=== PATIENT | male | born 1960 | race Caucasian/White ===

== ENCOUNTER → 2023-10-20 | Outpatient (CLI) | payer MEDICARE, OTHER ==
[2023-10-20 11:55] LABS: Basophils # (A) 0.1 k/uL (0-0.2); Basophils % (A) 1 %; Eosinophils # (A) 0.3 k/uL (0-0.7); Eosinophils % (A) 3 %; HCT 43.5 % (39.0-53.0); HGB 14.3 gm/dL (13.0-17.5); Lymphocytes # (A) 2.5 k/uL (1.0-4.8); Lymphocytes % (A) 30 %; MCH 30.9 pg (25.0-35.0); MCHC 32.8 g/dL (31.0-37.0); MCV 94.3 fL (80.0-100.0); Mean Platelet Volume 8.7; Monocytes # (A) 0.5 k/uL (0-1.0); Monocytes % (A) 6 %; Neutrophils # (A) 4.9 k/uL (1.3-7.7); Neutrophils % (A) 58 %; Platelet Count 220 k/uL (150-450); RBC 4.61 m/uL (4.30-5.90); RDW 12.5 % (11.5-15.5); WBC 8.3 k/uL (3.8-10.6)
[2023-10-20 12:09] LABS: ALT 29 U/L (4-49); AST 28 U/L (17-59); African American GFR (CKD) >90 (>60 ml/min/1.73 sqM); Albumin 4.4 g/dL (3.5-5.0); Albumin/Globulin Ratio 1.5; Alkaline Phosphatase 82 U/L (38-126); Anion Gap 9 mmol/L; Blood Urea Nitrogen 25 mg/dL (9-20); Calcium 9.8 mg/dL (8.4-10.2); Carbon Dioxide 23 mmol/L (22-30); Chloride 108 mmol/L (98-107); Glucose 90 mg/dL (74-99); Non-African American GFR(CKD) 86 (>60 ml/min/1.73 sqM); Potassium 4.8 mmol/L (3.5-5.1); Sodium 140 mmol/L (137-145); Total Bilirubin 0.7 mg/dL (0.2-1.3); Total Protein 7.4 g/dL (6.3-8.2)
--- NOTE | 2023-10-27 09:08 | CT ---
EXAMINATION TYPE: CT abdomen pelvis w con CT DLP: 2068.5 mGycm, Automated exposure control for dose reduction was used. DATE OF EXAM: 10/20/2023 1:09 PM COMPARISON: None CLINICAL INDICATION:Male, 63 years old with history of C18.9 COLON CA; colon ca TECHNIQUE: Axial CT of the abdomen and pelvis. Sagittal and coronal reformats were created on a [employer] workstation. Contrast used:100 mL of Isovue 300 with IV Contrast, (none if empty) Oral contrast used: with Oral Contrast (none if empty) FINDINGS: LOWER CHEST: No sizable nodule or mass. No effusion. Small sliding hiatal hernia. Normal heart size. ABDOMEN LIVER: There is probably mild hepatic steatosis. No evidence for liver mass. GALLBLADDER AND BILE DUCTS: Unremarkable gallbladder. No biliary ductal dilatation. PANCREAS: Unremarkable. SPLEEN: Unremarkable. ADRENAL GLANDS: Mildly thickened, may be seen with hyperplasia.. KIDNEYS AND URETERS: Kidneys enhance symmetrically. No evidence of hydronephrosis or visible renal ca lculus. The ureters are unremarkable. PELVIS BLADDER: Mildly distended, otherwise unremarkable. REPRODUCTIVE: Prostate appears enlarged, transverse measures 5.8 cm. Coarse central calcification. ABDOMEN & PELVIS STOMACH AND BOWEL: Contrast traverses the stomach and small bowel loops without evidence of obstructi on. The presumed appendix appears within normal limits. There is mild stool and gas throughout the co connor intermixed with contrast. No focal acute abnormality is shown. Some colonic segments are nondiste nded and not well evaluated. Nevertheless there is no obvious colonic mass. PERITONEUM/RETROPERITONEUM: No evidence of pneumoperitoneum or free fluid. VASCULATURE: Mild atherosclerotic calcifications are present throughout the abdominal aorta and its b ranches. No evidence of aortic aneurysm. Portal veins are enhancing. Splenic vein is patent. LYMPH NODES: No gross evidence for lymphadenopathy. SOFT TISSUE/ABDOMINAL WALL: Tiny fat-containing umbilical hernia. MUSCULOSKELETAL: No acute osseous abnormalities. Mild/moderate disc degeneration changes are present throughout the thoracolumbar spine. Slight S-shaped thoracolumbar scoliosis. IMPRESSION: 1. No acute abnormality demonstrated. 2. Multiple colonic diverticula, without evidence to suggest diverticulitis. 3. Enlarged prostate gland, as above. Clinical and PSA correlation recommended.
== END | disposition home or self-care (01) ==
LOC: RADCTMAIN 11:13
PROVIDERS: ATTEND Surgery Plastic and Reconstructive Surgery
DX: C18.9 Malignant neoplasm of colon, unspecified (principal); K57.30 Diverticulosis of large intestine without perforation or abscess without bleeding; N40.0 Benign prostatic hyperplasia without lower urinary tract symptoms
CPT/HCPCS: 86900; 86901; 80053; 82378; 85025; 86850; 74177; 36415; Q9967

== ENCOUNTER 2023-11-05 10:10 | Day surgery (SDC) | payer MEDICARE ==
[2023-10-30 09:31] VITALS: BMI 89.7
--- NOTE | 2023-11-05 07:51 | P.GSHP ---
History of Present Illness H&P Date: 11/05/23 CHIEF COMPLAINT: History of sigmoid volvulus HISTORY OF PRESENT ILLNESS: The patient is a 63-year-old male presents with biopsy-proven colon cancer. Patient did not have tattooing at the time of his initial colonoscopy. He underwent cardiac risk assessment. He presents for surgical preoperative endoscopic triptorelin and colon resection PAST MEDICAL HISTORY: Please see list. PAST SURGICAL HISTORY: Please see list. MEDICATIONS: Please see list. ALLERGIES: Please see list. SOCIAL HISTORY: No illicit drug use FAMILY HISTORY: No reports of Crohn disease or ulcerative colitis. REVIEW OF ORGAN SYSTEMS: CONSTITUTIONAL: Denies any fever or chills. HEENT: Denies any trouble with vision or nosebleeds. No difficulty swallowing. LYMPHATIC: The patient denies any lumps and bumps around the neck. ENDOCRINE: Denies any thyroid disorders. RESPIRATORY: Denies pneumonia. Denies any troubles with breathing or dyspnea on exertion. CARDIOVASCULAR: Denies any chest pain, palpitations, or recent heart attacks GASTROINTESTINAL: Has gastroesophageal reflux disease GENITOURINARY: No blood in urine. MUSCULOSKELETAL: Has back pain, stiffness, joint arthritis. NEUROLOGIC: Denies any numbness or tingling along the distal extremities. No seizure disorders or headaches. PSYCHIATRIC: Denies depression or suidical ideation. HEMATOLOGIC: Denies any abnormal bleeding or bruising. PHYSICAL EXAM: VITAL SIGNS: Stable GENERAL: Well-developed pleasant in no acute distress. HEENT: No scleral icterus. Extraocular movements grossly intact. Moist buccal mucosa. NECK: Supple without lymphadenopathy. CHEST: Unlabored respirations. Equal bilateral excursions. CARDIOVASCULAR: Regular rate and rhythm. Distal 2+ pulses. ABDOMEN: Soft, nontender, nondistended. MUSCULOSKELETAL: No clubbing, cyanosis, or edema. NERUO: Cranial nerves II through XII grossly intact PSYCH: Alert and oriented to person place and time. ASSESSMENT: 1. Colon cancer PLAN: 1. Benefits and risks of surgical intervention colonic resection. Robotic- assisted approach was also described. Will need endoscopic marking prior to colonic resection via robotic-assisted approach 2. Enhanced colon recovery program. 3. DVT prophylaxis. 4. Antibiotic prophylaxis. Past Medical History Past Medical History: Cancer, GERD/Reflux, Hypertension, Pneumonia Additional Past Medical History / Comment(s): dx with colon ca may 2023 History of Any Multi-Drug Resistant Organisms: None Reported Past Surgical History: Adenoidectomy, Orthopedic Surgery, Tonsillectomy Additional Past Surgical History / Comment(s): hemorroidectomy, plate in lt leg Past Anesthesia/Blood Transfusion Reactions: No Reported Reaction Smoking Status: Former smoker - Past Family History Brother(s) Family Medical History: Deep Vein Thrombosis (DVT) Additional Family Medical History / Comment(s): dvt leg Medications and Allergies Home Medications Medication Instructions Recorded Confirmed Type Ascorbic Acid [Vitamin C] 1,000 mg PO QAM 10/30/23 10/30/23 History Cholecalciferol [Vitamin D3 (125 125 mcg PO MOTHSA 10/30/23 10/30/23 History Mcg = 5000 Iu)] Christopher's Joint Formula 2 tab PO QAM 10/30/23 10/30/23 History Zinc Gluconate [Zinc] 50 mg PO QAM 10/30/23 10/30/23 History lisinopriL [Zestril] 40 mg PO QAM 10/30/23 10/30/23 History Allergies Allergy/AdvReac Type Severity Reaction Status Date / Time Penicillins Allergy QUIT Verified 10/29/23 16:10 BREATHING A CHILD
[~2023-11-05 10:10] MED LIST: Antibiotics per Pharmacy 1 EACH MISC MISCELLANE PRN; LACTATED RINGERS 1,000 ML IV SCH
[2023-11-05 11:03] VITALS: TEMP 97.1
[2023-11-05 11:20] LABS: Glucose,Whole Blood 86 mg/dL (70-110)
[2023-11-05] MEDS ORDERED: PROPOFOL 10 MG/ML 20 ML VIAL IV ONE (11:20)
[2023-11-05 11:45] LABS: ALT 24 U/L (4-49); AST 24 U/L (17-59); African American GFR (CKD) >90 (>60 ml/min/1.73 sqM); Albumin 3.9 g/dL (3.5-5.0); Alkaline Phosphatase 79 U/L (38-126); Anion Gap 14 mmol/L; Blood Urea Nitrogen 17 mg/dL (9-20); Calcium 8.9 mg/dL (8.4-10.2); Carbon Dioxide 19 mmol/L (22-30); Chloride 105 mmol/L (98-107); Glucose 88 mg/dL (74-99); Non-African American GFR(CKD) >90 (>60 ml/min/1.73 sqM); Potassium 4.2 mmol/L (3.5-5.1); Sodium 138 mmol/L (137-145); Total Bilirubin 0.7 mg/dL (0.2-1.3); Total Protein 6.6 g/dL (6.3-8.2)
--- NOTE | 2023-11-05 11:53 | P.PN ---
Progress Note - Text Progress Note Date: 11/05/23 Discussed with [employer] insurance regarding patient's colon cancer diagnosis and findings for immediate authorization approval for inpatient admission
--- NOTE | 2023-11-05 11:58 | P.PCN ---
Date of Procedure: 11/05/23 Description of Procedure: PREOPERATIVE DIAGNOSIS: Colon cancer POSTOPERATIVE DIAGNOSIS: Tubular adenoma transverse colon Tubular adenoma descending colon Sigmoid diverticulosis Rectosigmoid junction colon cancer Pandiverticulosis, severe Internal hemorrhoids, grade 2 OPERATION: Colonoscopy to the ileocecal valve and appendiceal orifice, cecum Colonoscopy with injection of Maylin ink, 4 mL Colonoscopy with hot snare polypectomy SURGEON: Tawny Nina MD. ANESTHESIA: MAC. INDICATIONS: The patient is an 63-year-old male who presents with biopsy-proven colon cancer. Presents for surgical mapping. Benefits and risks were described and informed consent was obtained. DESCRIPTION OF PROCEDURE: The patient had undergone Sutab prep. The patient had been brought into the operating room and laid in the left lateral decubitus position. After adequate intravenous sedation, the rectum was examined with 2% lidocaine jelly. The prostate was unremarkable. External hemorrhoids were encountered. The rectal tone was within normal limits. No lesions were palpated in the rectal vault. An Olympus colonoscope was advanced until the cecum, ileocecal valve and appendiceal orifice were clearly viewed. The prep was good. Sigmoid diverticulosis was encountered. Colonic polyps were found and removed. No evidence of focal colitis was found. Retroflexion of the scope demonstrated grade 2 internal hemorrhoids without active bleeding or inflammation. The colon was desufflated. The patient had tolerated the procedure well. Withdrawal time was over 6 minutes. FINDINGS: Aronchick preparation quality scale 2 (1-5) Internal hemorrhoids, grade 2 External hemorrhoids, grade 2. Arteriovenous malformations and transverse colon Rectosigmoid junction cancer 10-15 cm from the anal verge incorporating 30% of lumen Sigmoid diverticulosis, severe with pandiverticulosis Removal of 2 polyps: - Snare polypectomy 30 cm from the anal verge, 5 mm tubulovillous adenoma, sigmoid colon - Snare polypectomy transverse colon, 12 mm flat villous adenoma No focal colitis. RECOMMENDATIONS: 1. Immediate inpatient admission advised for colectomy
[2023-11-05 12:14] VITALS: RESP 16
[2023-11-05 12:26] LABS: Basophils % (A) 0 %; Eosinophils # (A) 0.3 k/uL (0-0.7); Eosinophils % (A) 4 %; Lymphocytes # (A) 1.8 k/uL (1.0-4.8); Lymphocytes % (A) 21 %; MCH 31.2 pg (25.0-35.0); MCHC 33.3 g/dL (31.0-37.0); MCV 93.8 fL (80.0-100.0); Monocytes # (A) 0.4 k/uL (0-1.0); Monocytes % (A) 5 %; Neutrophils # (A) 5.7 k/uL (1.3-7.7); Neutrophils % (A) 68 %; Platelet Count 203 k/uL (150-450); RBC 4.48 m/uL (4.30-5.90); RDW 12.6 % (11.5-15.5); WBC 8.4 k/uL (3.8-10.6)
[2023-11-05] MEDS ORDERED: ONDANSETRON 4 MG/2 ML VIAL IVP ONE (13:45)
[2023-11-05] MEDS: SODIUM CHLORIDE 0.9% 1,000 ML IV SCH ×2 (14:13→15:11)
[2023-11-05 16:07] VITALS: BP 114/74; PULSE 81
[2023-11-06] MEDS ORDERED: metroNIDAZOLE-NS PMX 500 MG in SALINE 1 100ML.BAG IVPB PRN (05:00)
[2023-11-06] MEDS ORDERED: ceFAZolin 3 GM in SODIUM CHLORIDE 0.9% 100 ML IVPB PRN (05:00)
== END 2023-11-05 15:52 | disposition home or self-care (01) ==
LOC: ORWHC2ENDO 10:10
PROVIDERS: ATTEND Surgery Plastic and Reconstructive Surgery
DX: D12.3 Benign neoplasm of transverse colon (principal); D12.4 Benign neoplasm of descending colon; I10 Essential (primary) hypertension; K21.9 Gastro-esophageal reflux disease without esophagitis; K57.30 Diverticulosis of large intestine without perforation or abscess without bleeding; K64.1 Second degree hemorrhoids; Z87.891 Personal history of nicotine dependence; Z88.0 Allergy status to penicillin; Z85.038 Personal history of other malignant neoplasm of large intestine; Z79.899 Other long term (current) drug therapy
CPT/HCPCS: 86900; 86901; 88305; 80053; 85025; 86850; 45385; 45381; J2405; J2704

== ENCOUNTER 2023-11-06 09:45 | Inpatient (IN) | payer MEDICARE ==
--- NOTE | 2023-11-06 07:55 | P.GSHP ---
History of Present Illness H&P Date: 11/06/23 CHIEF COMPLAINT: Colon cancer HISTORY OF PRESENT ILLNESS: The patient is a 63-year-old male presents with biopsy-proven colon cancer. He had colonoscopy with tattooing of a low-lying rectosigmoid junction colon cancer. He underwent metastatic workup. Additional polyps were resected yesterday. He presents today for colonic resection. PAST MEDICAL HISTORY: Please see list. PAST SURGICAL HISTORY: Please see list. MEDICATIONS: Please see list. ALLERGIES: Please see list. SOCIAL HISTORY: No illicit drug use FAMILY HISTORY: No reports of Crohn disease or ulcerative colitis. REVIEW OF ORGAN SYSTEMS: CONSTITUTIONAL: Denies any fever or chills. HEENT: Denies any trouble with vision or nosebleeds. No difficulty swallowing. LYMPHATIC: The patient denies any lumps and bumps around the neck. ENDOCRINE: Denies any thyroid disorders. RESPIRATORY: Denies pneumonia. Denies any troubles with breathing or dyspnea on exertion. CARDIOVASCULAR: Denies any chest pain, palpitations, or recent heart attacks. Had cardiac risk assessment. GASTROINTESTINAL: Has gastroesophageal reflux disease. Has rectal bleeding. GENITOURINARY: No blood in urine. MUSCULOSKELETAL: Has back pain, stiffness, joint arthritis. NEUROLOGIC: Denies any numbness or tingling along the distal extremities. No seizure disorders or headaches. PSYCHIATRIC: Denies depression or suidical ideation. HEMATOLOGIC: Denies any abnormal bleeding or bruising. PHYSICAL EXAM: VITAL SIGNS: Stable GENERAL: Well-developed pleasant in no acute distress. HEENT: No scleral icterus. Extraocular movements grossly intact. Moist buccal mucosa. NECK: Supple without lymphadenopathy. CHEST: Unlabored respirations. Equal bilateral excursions. CARDIOVASCULAR: Regular rate and rhythm. Distal 2+ pulses. ABDOMEN: Soft, nontender, nondistended. MUSCULOSKELETAL: No clubbing, cyanosis, or edema. NERUO: Cranial nerves II through XII grossly intact PSYCH: Alert and oriented to person place and time. REPORTS: Recent colonoscopy demonstrating adenomas of the transverse colon and descending colon. Tumor between 10-15 cm from the anal verge identified. Severe diverticulosis identified. STUDIES: CT and an pelvis in a reviewed demonstrated no metastatic disease. Highly redundant sigmoid colon with moderate to severe sigmoid diverticulosis identified. This is my independent interpretation. Presence of fatty liver disease also identified. ASSESSMENT: 1. Colon cancer PLAN: 1. Extended discussion with location of tumor were described including risk of protective ostomy, permanent ostomy, open exploratory laparotomy, risk of leaks, need for further surgery. Patient was given alternative for referral to a tertiary care center as well. Patient opted to proceed with all benefits and risks described. 2. Enhanced colon recovery program. 3. DVT prophylaxis. 4. Antibiotic prophylaxis. 5. Inpatient hospitalization anticipated more than 2 nights. 6. Patient's elevated risk due to pre-existing conditions, morbid obesity, heart disease, location of tumor Medications and Allergies Home Medications Medication Instructions Recorded Confirmed Type Ascorbic Acid [Vitamin C] 1,000 mg PO QAM 10/30/23 11/05/23 History Cholecalciferol [Vitamin D3 (125 125 mcg PO MOTHSA 10/30/23 11/05/23 History Mcg = 5000 Iu)] Christopher's Joint Formula 2 tab PO QAM 10/30/23 11/05/23 History Zinc Gluconate [Zinc] 50 mg PO QAM 10/30/23 11/05/23 History lisinopriL [Zestril] 40 mg PO QAM 10/30/23 11/05/23 History Allergies Allergy/AdvReac Type Severity Reaction Status Date / Time Penicillins Allergy QUIT Verified 11/05/23 10:46 BREATHING A CHILD
[~2023-11-06 09:45] MED LIST changes: +ACETAMINOPHEN TAB 500 MG TAB PO PRN; +ALVIMOPAN 12 MG CAPSULE PO PRN; -Antibiotics per Pharmacy 1 EACH MISC MISCELLANE PRN; +HEPARIN SODIUM,PORCINE 5,000 UNIT/ML 1 ML VIAL SQ PRN; -LACTATED RINGERS 1,000 ML IV SCH; +ONDANSETRON 4 MG/2 ML VIAL IVP PRN; +ONDANSETRON 4 MG/2 ML VIAL ONE; +SODIUM CHLORIDE 0.9% 2,000 ML IV ONE; +TAMSULOSIN 0.4 MG CAP.ER.24H PO STA; +metroNIDAZOLE-NS PMX 500 MG in SALINE 1 100ML.BAG IVPB PRN
[2023-11-06] MEDS ORDERED: DEXAMETHASONE SOD PHOSPHATE 4 MG/ML 1 ML VIAL IV ONE (10:44)
[2023-11-06] MEDS ORDERED: ONDANSETRON 4 MG/2 ML VIAL IVP ONE (10:44)
[2023-11-06] MEDS: LACTATED RINGERS 1,000 ML IV SCH (11:36)
[2023-11-06 11:46] LABS: Basophils % (A) 1 %; Eosinophils # (A) 0.1 k/uL (0-0.7); Eosinophils % (A) 2 %; HGB 14.3 gm/dL (13.0-17.5); Lymphocytes # (A) 1.6 k/uL (1.0-4.8); Lymphocytes % (A) 22 %; MCH 31.7 pg (25.0-35.0); MCHC 34.1 g/dL (31.0-37.0); Mean Platelet Volume 8.5; Monocytes # (A) 0.4 k/uL (0-1.0); Monocytes % (A) 5 %; Neutrophils # (A) 5.2 k/uL (1.3-7.7); Neutrophils % (A) 70 %; Platelet Count 203 k/uL (150-450); RBC 4.51 m/uL (4.30-5.90); RDW 12.6 % (11.5-15.5); WBC 7.4 k/uL (3.8-10.6)
[2023-11-06 11:59] LABS: ALT 28 U/L (4-49); AST 29 U/L (17-59); African American GFR (CKD) >90 (>60 ml/min/1.73 sqM); Albumin 4.5 g/dL (3.5-5.0); Alkaline Phosphatase 89 U/L (38-126); Anion Gap 15 mmol/L; Blood Urea Nitrogen 12 mg/dL (9-20); Calcium 9.5 mg/dL (8.4-10.2); Carbon Dioxide 19 mmol/L (22-30); Chloride 109 mmol/L (98-107); Glucose 103 mg/dL (74-99); Non-African American GFR(CKD) 88 (>60 ml/min/1.73 sqM); Potassium 4.2 mmol/L (3.5-5.1); Sodium 143 mmol/L (137-145); Total Bilirubin 0.7 mg/dL (0.2-1.3); Total Protein 7.4 g/dL (6.3-8.2)
[2023-11-06] MEDS ORDERED: MIDAZOLAM 2 MG/2 ML VIAL IVP ONE (12:49)
[2023-11-06] MEDS ORDERED: PROPOFOL 10 MG/ML 20 ML VIAL IV ONE (13:07)
[2023-11-06] MEDS ORDERED: fentaNYL (PF) 50 MCG/ML 2 ML AMP ONE (13:07)
[2023-11-06] MEDS ORDERED: ROCURONIUM 10 MG/ML (5 ML VIAL) IV ONE (13:07)
[2023-11-06] MEDS ORDERED: MIDAZOLAM 2 MG/2 ML VIAL ONE (13:07)
[2023-11-06] MEDS ORDERED: SUCCINYLCHOLINE CHLORIDE 200 MG/10 ML VIAL IV ONE (13:07)
[2023-11-06] MEDS ORDERED: PHENYLEPHRINE 10 MG/ML VIAL ONE (13:07)
[2023-11-06] MEDS ORDERED: ROPIVACAINE 5 MG/ML 30 ML VIAL ONE (13:07)
[2023-11-06] MEDS ORDERED: SODIUM CHLORIDE 0.9% (PF) 10 ML VIAL ONE (13:07)
[2023-11-06] MEDS ORDERED: SUGAMMADEX SODIUM 200 MG/2 ML SDV IV ONE (13:07)
[2023-11-06] MEDS ORDERED: LIDOCAINE 1% INJ 10MG/ML (20 ML MDV) ONE (13:07)
[2023-11-06] MEDS ORDERED: HYDROmorphone (PF) 1 MG/ML ONE (13:07)
--- NOTE | 2023-11-06 13:07 | P.ANPRN ---
Procedure Note - Anesthesia - Nerve Block Performed Bilateral Erector Spinae Single Time Out Performed: Yes Date of Procedure: 11/06/23 Procedure Start Time: 12:45 Procedure Stop Time: 13:00 Location of Patient: PreOp Indication: Acute Post-Operative Pain, Requested by Surgeon Sedation Type: Sedate with meaningful contact maintained Preparation: Sterile Prep, Sterile Dressing Position: Prone Catheter: None Needle Types: Facet Needle Gauge: 20 Ultrasound used to visualize needle placement: Yes Ultrasound used to observe medication spread: Yes Injectate: Other (see comment) (Ropivacaine 0.25% + decardon 2 mg 30 ml per side) Blood Aspirated: No Pain Paresthesia on Injection Noted: No Resistance on Injection: Normal Image Stored and Saved: Yes Events: Uneventful and Well Tolerated
[2023-11-06] MEDS ORDERED: LIDOCAINE 0.5%-EPI 1:200,000 50 ML VIAL SQ ONE (13:56)
[2023-11-06] MEDS ORDERED: LACTATED RINGERS 1,000 ML IV ONE ×2 (14:30→18:30)
[2023-11-06] MEDS: HYDROmorphone 0.5 MG/0.5 ML SYRINGE IVP PRN ×2 (19:14→19:32)
[2023-11-06] MEDS ORDERED: NALOXONE 0.4 MG/ML 1 ML VIAL IV PRN (19:23)
[2023-11-06] MEDS ORDERED: HYDROmorphone 1 MG/ML 1 ML SYRINGE IVP PRN (19:23)
[2023-11-06] MEDS ORDERED: BENZOCAINE/MENTHOL LOZENG 1 EACH LOZENGE MUCOUS MEM PRN (19:25)
[2023-11-06] MEDS ORDERED: METOCLOPRAMIDE 5 MG/ML 2 ML VIAL IVP PRN (19:25)
--- NOTE | 2023-11-06 19:36 | P.OP ---
Date of Procedure: 11/06/23 Description of Procedure: SURGEON: CARTER DOVE MD PREOPERATIVE DIAGNOSES: 1. Rectosigmoid colon cancer with bleeding 2. Morbid obesity due to excess calories, BMI 39.8 3. Hypertensive heart disease 4. Diverticulosis 5. Prostatic hypertrophy. POSTOPERATIVE DIAGNOSES: 1. Rectosigmoid colon cancer with bleeding 2. Morbid obesity due to excess calories, BMI 39.8 3. Hypertensive heart disease 4. Diverticulosis of prior diverticulitis 5. Left pelvic adhesions from diverticulitis OPERATION: 1. Robotic-assisted daVinci Xi sigmoid colectomy with low anterior resection using 29 mm powered Ethicon circular stapler 2. Robotic-assisted daVinci Xi laparoscopic lysis of adhesions 3. Intraoperative colonoscopy Anesthesia: GETA, local, epidural Estimated Blood Loss (ml): 75 Pathology: 1. Sigmoid colon 2. EEA donuts 3. Proximal colotomy Condition: stable Disposition: floor COMPLICATIONS: None. Operative Findings: 1. Tumor identified at superior rectum encroaching rectosigmoid junction 2. Anastomosis with EEA stapler 29 mm 3. No tension or torsion along the anastomosis 4. Doughnuts thick and both sides and viable 5. Moderately redundant sigmoid colon without tension at anastomosis 6. No peritoneal studding 7. Negative leak test with viable anastomosis. 8. Left pelvic adhesions from prior diverticulitis 9. Lysis of adhesions performed for pelvic adhesions 10. Combination of 60 mm and 30 mm black stapler for division proximal rectum 11. Colonoscopy demonstrates resection of tumor involving tattoo INDICATIONS: The patient is a 63-year-old male who presents with colon cancer. He had a colonoscopy confirming bleeding from the tumor and biopsy proven adenocarcinoma. Benefits and risks of surgical intervention was described in detail including infection, injury to the ureter, colostomy creation, possibility for additional surgery was discussed at length. Informed consent was obtained. All questions of the patient and family were answered. DESCRIPTION: Earlier the patient had undergone a bowel prep using the enhanced colon recovery program. The patient was transferred to the operating room and placed supine. After general induction, the abdomen was prepped and draped in standard sterile fashion. Ioban was placed along the abdomen to minimize any contamination of skin floor. A Cagle catheter was placed. After a timeout protocol was performed, attention was then brought to the left upper quadrant whereby a 0 degree 5 mm laparoscopic trocar entry was performed. The abdominal cavity was entered and insufflated to 15 mmHg pressure, which was tolerated well. Diagnostic laparoscopy confirmed moderately redundant sigmoid colon with active diverticulitis and colon adherent to the abdominal wall and pelvis. The small bowel was unremarkable. Next a robotic 12-mm trocar was placed along the right lateral abdominal wall 20 cm superior from the pelvis. Two 8 mm ports were placed along the upper abdomen. Ports were placed 10 cm apart from each other including 20 cm away from the target anatomy of the left pelvis. The 12-mm port was exchanged for an 8 mm robotic port at the left upper quadrant. The robot was docked along the right lateral abdomen. The patient was positioned in steep Trendelenburg position at 21-degrees. Using atraumatic graspers and vessel sealer, the robotic system was docked and primed as described. Instruments were interchanged by the bookkeeping assistant including hook cautery, needle ups driver, robotic stapler and vessel sealer. The robot stapler was prepared along the right lateral abdominal wall. The stapler 12-mm port was arranged along the right lateral abdominal wall. Next, attention was brought to identify the sigmoid colon. The descending colon, sigmoid colon was densely adherent to the abdominal wall due to diverticulitis. Lysis of adhesions over 30 minutes using vessel sealer blunt dissection was performed to expose the sigmoid colon which is obscured by the adherent bowel. A stay suture using 3- 0 silk was placed along the anterior serosa of the redundant sigmoid colon. The sigmoid mesentery was mobilized using a vessel sealer whereby the descending colon was marked and tagged. Additionally, the sigmoid colon was mobilized onto the colon to minimize injury to the ureters.Using multiple fires of the robot stapler 60 mm black load, the mid- sigmoid colon was divided. The mesentery of the sigmoid colon was mobilized towards the pelvic brim and sacral promontory using a vessel sealer. The peritoneum was scored to dissect circumferentially the proximal and mid rectum until the entire tattoo was incorporated. Hemostasis was checked using vessel sealer. I went to the foot of the bed where colonoscope was used to confirm incorporation of the specimen prior to resection. Next, the mid rectum was divided using divided using several fires of robotic 30 mm black stapler and 60 mm black stapler load due to thickness of the tissue. I went to the foot of the bed to confirm sizers and placement of 29-mm Ethicon powered stapler. I re-scrubbed into the case. The robotic arms were temporarily undocked. A 29-mm anvil was placed with a 3-0 silk sutured at the tip of the anvil etcher printed circuit boards. Then the anvil was placed via the left upper quadrant 12 mm port. All robotic arms were re-docked. I went back to the console. The staple line was opened using cautery. The anvil was entered into the proximal descending colon. The colotomy was closed using 60 mm green load. Next, the sharp tip of the anvil etcher printed circuit boards was brought through the staple line. The anvil etcher printed circuit boards was removed from the abdomen using empty clip appliers. I went to the foot of the bed to place the powered Ethicon 29 mm stapler via the rectum. The anvil and stapler were mated for 1 minute. The doughnuts were intact on both sides and thick with tattoo involved. An intraoperative leak test was performed as I inserted the colonoscope to the anastomosis. Endoscopic images were obtained. Irrigation was placed in the pelvis and no air leaks were identified. Irrigation fluid was aspirated from the pelvis until dry. I went back to the console. All sponges and needles were removed from the abdominal cavity. The robot was undocked. I re-scrubbed into the case. Via the left upper quadrant port, the sigmoid colon was removed using 15 mm Endo Catch bag. All sponges were removed from the abdominal cavity. The left upper quadrant incision was widened to 3-cm. No contamination had occurred throughout the case. The fascial defect was oversewn using 0 Vicryl and a Sanju Epperson. Next all pneumoperitoneum was evacuated from the abdominal cavity. The 8-mm trocar sites were reapproximated using 4-0 Monocryl in an interrupted subcuticular fashion. Local anesthetic was infiltrated to all wounds for postop analgesia. All incisions were also cleansed with diluted hydrogen peroxide. An Fashion[employer]ub advance surgical dressing was placed over the colon extraction site. Liquid glue was applied to the rest of the skin incisions. The patient had tolerated the procedure well. The patient was extubated successfully. The patient was transferred to the postanesthesia care unit in stable condition. Intraoperative findings were described in detail to the patient's family including risk for further surgery pending pathology report.
[2023-11-06] MEDS: ACETAMINOPHEN IV (For NPO) 1,000 MG in EMPTY BAG 1 BAG IVPB SCH (20:55)
[2023-11-06] MEDS: SODIUM CHLORIDE 0.9% 1,000 ML IV SCH (21:00)
[2023-11-07] MEDS: HEPARIN SODIUM,PORCINE 5,000 UNIT/ML 1 ML VIAL SQ SCH ×3 (00:17→23:23)
[2023-11-07] MEDS: ACETAMINOPHEN IV (For NPO) 1,000 MG in EMPTY BAG 1 BAG IVPB SCH ×4 (01:18→19:40)
[2023-11-07] MEDS: SODIUM CHLORIDE 0.9% 1,000 ML IV SCH ×2 (04:18→14:00)
[2023-11-07] MEDS ORDERED: ALVIMOPAN 12 MG CAPSULE PO SCH (09:00)
[2023-11-07] MEDS ORDERED: TAMSULOSIN 0.4 MG CAP.ER.24H PO STA (09:17)
--- NOTE | 2023-11-07 09:17 | P.GSCN ---
History of Present Illness Consult date: 11/07/23 Reason for Consult: BPH History of present illness: This is a 63-year-old male with history of BPH. He underwent a low anterior resection by Dr. Nina yesterday. Urology is consulted given his history of BPH. At baseline he denies any difficulty voiding, he indicates he voids with a good stream without any straining. He does complain of frequency, which is bothersome to him.. Denies any previous history of urinary retention or any previous prostate surgeries. No known history of recurrent UTIs, kidney stones or gross hematuria. Computed tomography scan abdomen and pelvis on presentation did show evidence of a 60 g prostate Review of Systems - Constitutional Denies fever, Denies weight loss - EENT Ears, nose, mouth and throat: Denies dysphagia - Cardiovascular Denies chest pain, Denies shortness of breath - Respiratory Denies cough, Denies 7 - Gastrointestinal Reports as per HPI - Genitourinary Denies dysuria, Denies hematuria - Integumentary Denies rash, Denies unusual bruising Past Medical History Past Medical History: Hypertension History of Any Multi-Drug Resistant Organisms: None Reported Past Surgical History: Tonsillectomy Additional Past Surgical History / Comment(s): metal plate L leg, colonoscopy Past Anesthesia/Blood Transfusion Reactions: No Reported Reaction Past Psychological History: No Psychological Hx Reported Smoking Status: Never smoker Medications and Allergies Home Medications Medication Instructions Recorded Confirmed Type Ascorbic Acid [Vitamin C] 1,000 mg PO QAM 10/30/23 11/06/23 History Cholecalciferol [Vitamin D3 (125 125 mcg PO MOTHSA 10/30/23 11/06/23 History Mcg = 5000 Iu)] Christopher's Joint Formula 2 tab PO QAM 10/30/23 11/06/23 History Zinc Gluconate [Zinc] 50 mg PO QAM 10/30/23 11/06/23 History lisinopriL [Zestril] 40 mg PO QAM 10/30/23 11/06/23 History Allergies Allergy/AdvReac Type Severity Reaction Status Date / Time Penicillins Allergy QUIT Verified 11/06/23 10:46 BREATHING A CHILD Surgical - Exam Vital Signs Temp Pulse Resp BP Pulse Ox 98.7 F 94 18 152/81 97 11/06/23 11:24 11/06/23 11:24 11/06/23 11:24 11/06/23 11:24 11/06/23 11:24 - General no distress, no pain - Eyes normal ocular movement, no pale - ENT normal nares, normal mucosa - Respiratory normal expansion, normal respiratory effort - Abdomen Abdomen: soft, non tender - Psychiatric oriented to time, oriented to person, oriented to place Results - Labs 11/06/23 11:42 11/06/23 11:42 Abnormal Lab Results - Last 24 Hours (Table) 11/06/23 Range/Units 11:42 Chloride 109 H (98-107) mmol/L Carbon Dioxide 19 L (22-30) mmol/L Glucose 103 H (74-99) mg/dL Diabetes panel 11/06/23 Range/Units 11:42 Sodium 143 (137-145) mmol/L Potassium 4.2 (3.5-5.1) mmol/L Chloride 109 H (98-107) mmol/L Carbon Dioxide 19 L (22-30) mmol/L BUN 12 (9-20) mg/dL Creatinine 0.91 (0.66-1.25) mg/dL Glucose 103 H (74-99) mg/dL Calcium 9.5 (8.4-10.2) mg/dL AST 29 (17-59) U/L ALT 28 (4-49) U/L Alkaline Phosphatase 89 (38-126) U/L Total Protein 7.4 (6.3-8.2) g/dL Albumin 4.5 (3.5-5.0) g/dL Calcium panel 11/06/23 Range/Units 11:42 Calcium 9.5 (8.4-10.2) mg/dL Albumin 4.5 (3.5-5.0) g/dL Pituitary panel 11/06/23 Range/Units 11:42 Sodium 143 (137-145) mmol/L Potassium 4.2 (3.5-5.1) mmol/L Chloride 109 H (98-107) mmol/L Carbon Dioxide 19 L (22-30) mmol/L BUN 12 (9-20) mg/dL Creatinine 0.91 (0.66-1.25) mg/dL Glucose 103 H (74-99) mg/dL Calcium 9.5 (8.4-10.2) mg/dL Adrenal panel 11/06/23 Range/Units 11:42 Sodium 143 (137-145) mmol/L Potassium 4.2 (3.5-5.1) mmol/L Chloride 109 H (98-107) mmol/L Carbon Dioxide 19 L (22-30) mmol/L BUN 12 (9-20) mg/dL Creatinine 0.91 (0.66-1.25) mg/dL Glucose 103 H (74-99) mg/dL Calcium 9.5 (8.4-10.2) mg/dL Total Bilirubin 0.7 (0.2-1.3) mg/dL AST 29 (17-59) U/L ALT 28 (4-49) U/L Alkaline Phosphatase 89 (38-126) U/L Total Protein 7.4 (6.3-8.2) g/dL Albumin 4.5 (3.5-5.0) g/dL Assessment and Plan Assessment: 63-year-old male history of BPH, underwent robotic low anterior resection by Dr. Nina At baseline he does not have any obstructive urinary symptoms or any previous history of urinary retention. He does have bothersome frequency. Discussed with him his prostate enlargement and is bothersome frequency will put him on a trial of Flomax. -Flomax -Cagle can be removed on day of discharge, please obtain a postvoid residual if less than 300 mL he's okay for discharge from urology standpoint
[2023-11-07 09:19] LABS: Basophils # (A) 0.02 X 10*3/uL (0.00-0.10); Basophils % (A) 0.2 %; Eosinophils # (A) 0.01 X 10*3/uL (0.04-0.35); Eosinophils % (A) 0.1 %; HCT 38.2 % (39.6-50.0); HGB 12.5 g/dL (13.0-17.0); Lymphocytes # (A) 1.68 X 10*3/uL (0.90-5.00); Lymphocytes % (A) 16.3 %; MCH 30.6 pg (27.0-32.0); MCHC 32.7 g/dL (32.0-37.0); MCV 93.4 FL (80.0-97.0); Mean Platelet Volume 11.3 FL (9.5-12.2); Monocytes # (A) 1.21 X 10*3/uL (0.20-1.00); Monocytes % (A) 11.7 %; NRBC Per 100 WBC 0 X 10*3/uL (0.00-0.01); Neutrophils # (A) 7.34 X 10*3/uL (1.80-7.70); Neutrophils % (A) 71.2 %; Platelet Count 200 X 10*3/uL (140-440); RBC 4.09 X 10*6/uL (4.40-5.60); RDW 12.8 % (11.5-14.5); WBC 10.31 X 10*3/uL (4.50-10.00)
[2023-11-07 09:39] LABS: Blood Urea Nitrogen 11.9 mg/dL (9.0-27.0); Glucose 108 mg/dL (70-110)
[2023-11-07 09:40] LABS: ALT 27 U/L (10-49); AST 47 U/L (14-35); Albumin 3.7 g/dL (3.8-4.9); Albumin/Globulin Ratio 1.68 Ratio (1.60-3.17); Alkaline Phosphatase 68 U/L (41-126); Calcium 8.8 mg/dL (8.7-10.3); Carbon Dioxide 21.6 mmol/L (21.6-31.8); Chloride 111 mmol/L (96-109); Globulin 2.2 g/dL (1.6-3.3); Potassium 4.3 mmol/L (3.5-5.5); Sodium 143 mmol/L (135-145); Total Bilirubin 0.4 mg/dL (0.3-1.2); Total Protein 5.9 g/dL (6.2-8.2)
[2023-11-07] MEDS: lisinopriL 20 MG TAB PO SCH (09:42)
[2023-11-07] MEDS: GABAPENTIN 300 MG CAP PO SCH ×3 (09:42→22:45)
[2023-11-07] MEDS: metroNIDAZOLE-NS PMX 500 MG in SALINE 1 100ML.BAG IVPB SCH ×2 (10:07→17:09)
--- NOTE | 2023-11-07 10:52 | P.PN ---
Subjective Progress Note Date: 11/07/23 (Surgery) Patient is doing great from a robotic lower anterior resection is tolerating diet and pain is minimal. He is ambulating and using incentive spirometer. Plan: Could potentially go home tomorrow or Thursday depending on how he does and the logistics. Continue DVT prophylaxis. Continue diet. Continue ambulation and incentive spirometer. Objective - Vital Signs Vital signs: Vital Signs Temp 97.9 F 11/07/23 08:35 Pulse 88 11/07/23 08:35 Resp 16 11/07/23 08:35 BP 150/78 11/07/23 08:35 Pulse Ox 96 11/07/23 08:35 FiO2 Intake & Output 11/06/23 11/07/23 11/07/23 18:59 06:59 18:59 Intake Total 2550 Output Total 500 1200 Balance 2049 -1199 Weight 111.9 kg 111.9 kg Intake: IV 2550 Output: Urine 425 1200 Estimated Blood Loss 75 Other: Voiding Method Indwelling Catheter - Labs CBC & Chem 7: 11/07/23 06:11 11/07/23 06:11 Labs: Abnormal Lab Results - Last 24 Hours (Table) 11/06/23 11/07/23 11/07/23 Range/Units 11:42 06:11 06:11 WBC 10.31 H (4.50-10.00) X 10*3/uL RBC 4.09 L (4.40-5.60) X 10*6/uL Hgb 12.5 L (13.0-17.0) g/dL Hct 38.2 L (39.6-50.0) % Immature Gran # 0.05 H (0.00-0.04) X 10*3/uL Monocytes # 1.21 H (0.20-1.00) X 10*3/uL Eosinophils # 0.01 L (0.04-0.35) X 10*3/uL Chloride 109 H 111 H (98-107) mmol/L Carbon Dioxide 19 L (22-30) mmol/L BUN/Creatinine Ratio 11.90 L (12.00-20.00) Ratio Glucose 103 H (74-99) mg/dL AST 47 H (14-35) U/L Total Protein 5.9 L (6.2-8.2) g/dL Albumin 3.7 L (3.8-4.9) g/dL
[2023-11-07] MEDS: LACTATED RINGERS 1,000 ML IV SCH (12:02)
--- NOTE | 2023-11-07 15:34 | P.CONS ---
History of Present Illness - Reason for Consult Consult date: 11/07/23 Medical management - History of Present Illness History of present illness; patient is a 63-year-old gentleman with past medical history significant for hypertension, recently diagnosed colon cancer who presented to the hospital for elective sigmoid colectomy with low anterior resection. He had colonoscopy with tattooing of a low-lying rectosigmoid junction colon cancer. Patient had discussion with surgery and decision was made to proceed with colectomy. Postoperatively internal medicine team were consulted for medical management REVIEW OF SYSTEMS: CONSTITUTIONAL: No fever, no malaise, no fatigue. HEENT: No recent visual problems or hearing problems. Denied any sore throat. CARDIOVASCULAR: No chest pain, orthopnea, PND, no palpitations, no syncope. PULMONARY: No shortness of breath, no cough, no hemoptysis. GASTROINTESTINAL: No diarrhea, no nausea, no vomiting, no abdominal pain. NEUROLOGICAL: No headaches, no weakness, no numbness. HEMATOLOGICAL: Denies any bleeding or petechiae. GENITOURINARY: Denies any burning micturition, frequency, or urgency. MUSCULOSKELETAL/RHEUMATOLOGICAL: Denies any joint pain, swelling, or any muscle pain. ENDOCRINE: Denies any polyuria or polydipsia. The rest of the 14-point review of systems is negative. PHYSICAL EXAMINATION: GENERAL: The patient is alert and oriented x3, not in any acute distress. Well developed, well nourished. HEENT: Pupils are round and equally reacting to light. EOMI. No scleral icterus. No conjunctival pallor. Normocephalic, atraumatic. No pharyngeal erythema. No thyromegaly. CARDIOVASCULAR: S1 and S2 present. No murmurs, rubs, or gallops. PULMONARY: Chest is clear to auscultation, no wheezing or crackles. ABDOMEN: Soft, nontender, nondistended, normoactive bowel sounds. No palpable organomegaly. Laparoscopic surgical incision seen MUSCULOSKELETAL: No joint swelling or deformity. EXTREMITIES: No cyanosis, clubbing, or pedal edema. NEUROLOGICAL: Gross neurological examination did not reveal any focal deficits. SKIN: No rashes. Assessment and plan Rectosigmoid colon cancer with bleeding Morbid obesity due to excess calories, BMI 39.8 Hypertensive heart disease Diverticulosis of prior diverticulitis Left pelvic adhesions from diverticula Urinary retention Monitor vital signs Monitor CBC Monitor CMP Continue pain management per surgery Advance diet per surgery Resume home meds Labs and medication were reviewed.. Continue same treatment. Continue with symptomatic treatment. Resume home medication. Monitor labs and vitals. DVT and GI prophylaxis. Further recommendations as per clinical course of the cruz martinez Dictation was produced using [employer] dictation software. please excuse any grammatical, word or spelling errors. Past Medical History Past Medical History: Hypertension History of Any Multi-Drug Resistant Organisms: None Reported Past Surgical History: Tonsillectomy Additional Past Surgical History / Comment(s): metal plate L leg, colonoscopy Past Anesthesia/Blood Transfusion Reactions: No Reported Reaction Past Psychological History: No Psychological Hx Reported Smoking Status: Never smoker Medications and Allergies Home Medications Medication Instructions Recorded Confirmed Type Ascorbic Acid [Vitamin C] 1,000 mg PO QAM 10/30/23 11/06/23 History Cholecalciferol [Vitamin D3 (125 125 mcg PO MOTHSA 10/30/23 11/06/23 History Mcg = 5000 Iu)] Christopher's Joint Formula 2 tab PO QAM 10/30/23 11/06/23 History Zinc Gluconate [Zinc] 50 mg PO QAM 10/30/23 11/06/23 History lisinopriL [Zestril] 40 mg PO QAM 10/30/23 11/06/23 History Tamsulosin [Flomax] 0.4 mg PO DAILY #30 cap 11/07/23 Rx Allergies Allergy/AdvReac Type Severity Reaction Status Date / Time Penicillins Allergy QUIT Verified 11/06/23 10:46 BREATHING A CHILD Physical Exam Vitals: Vital Signs Temp Pulse Pulse Resp BP BP Pulse Ox 11/07/23 13:59 97.8 F 91 16 153/79 97 11/07/23 08:35 97.9 F 88 16 150/78 96 11/07/23 01:11 98.3 F 100 22 145/81 96 11/06/23 23:14 108 H 123/75 94 L 11/06/23 21:59 110 H 127/75 95 11/06/23 21:44 109 H 128/74 95 11/06/23 21:29 109 H 121/73 95 11/06/23 21:25 110 H 11/06/23 21:14 111 H 128/72 95 11/06/23 20:59 109 H 132/74 96 11/06/23 20:44 110 H 123/76 96 11/06/23 20:29 111 H 138/51 94 L 11/06/23 20:14 98.1 F 109 H 22 148/72 93 L 11/06/23 19:52 108 H 18 116/67 94 L 11/06/23 19:37 106 H 18 113/66 94 L 11/06/23 19:22 110 H 20 118/64 94 L 11/06/23 19:07 114 H 22 129/68 94 L 11/06/23 18:52 97.3 F L 107 H 24 138/60 94 L Intake and Output 11/07/23 11/07/23 11/07/23 06:59 14:59 22:59 Output Total 1200 Balance -1200 Output: Urine 1200 Results CBC & Chem 7: 11/07/23 06:11 11/07/23 06:11 Labs: Abnormal Lab Results - Last 24 Hours (Table) 11/07/23 11/07/23 Range/Units 06:11 06:11 WBC 10.31 H (4.50-10.00) X 10*3/uL RBC 4.09 L (4.40-5.60) X 10*6/uL Hgb 12.5 L (13.0-17.0) g/dL Hct 38.2 L (39.6-50.0) % Immature Gran # 0.05 H (0.00-0.04) X 10*3/uL Monocytes # 1.21 H (0.20-1.00) X 10*3/uL Eosinophils # 0.01 L (0.04-0.35) X 10*3/uL Chloride 111 H (96-109) mmol/L BUN/Creatinine Ratio 11.90 L (12.00-20.00) Ratio AST 47 H (14-35) U/L Total Protein 5.9 L (6.2-8.2) g/dL Albumin 3.7 L (3.8-4.9) g/dL
--- NOTE | 2023-11-07 18:47 | P.CONS ---
History of Present Illness - Reason for Consult Colon mass/cancer Requesting physician: Tawny Nina - Chief Complaint Colon mass resection - History of Present Illness Mr. Zaldivar is a very pleasant 63 yo male with recently found sigmoid colon cancer. He was evaluated at [place] for rectal bleeding, and colonoscopy was done on 07/2023 which revealed colon mass, biopsy was positive for malignancy (need to get records). CT AP there was negative for met's per pt/family, and he was seen by Dr. Nina for surgical evaluation. She performed repeat colonoscopy on 11/05/23, which revealed additional polyps that were resected. He subsequently underwent resection of mass on 11/06/22, and was admitted for post op care. Underwent resection. Pathology from recent colonoscopy consistent with tubular adenoma and hyperplastic polyp. We were consulted for colon cancer. Pt did have CT AP here as well on 10/27/23, reviewed, negative for mass, but did reveal diverticulosis without diverticulitis and enlarged prostate. Pt recovering well from surgery and passing gas and stool. Past Medical History Past Medical History: Hypertension History of Any Multi-Drug Resistant Organisms: None Reported Past Surgical History: Tonsillectomy Additional Past Surgical History / Comment(s): metal plate L leg, colonoscopy Past Anesthesia/Blood Transfusion Reactions: No Reported Reaction Past Psychological History: No Psychological Hx Reported Smoking Status: Never smoker Medications and Allergies Home Medications Medication Instructions Recorded Confirmed Type Ascorbic Acid [Vitamin C] 1,000 mg PO QAM 10/30/23 11/06/23 History Cholecalciferol [Vitamin D3 (125 125 mcg PO MOTHSA 10/30/23 11/06/23 History Mcg = 5000 Iu)] Christopher's Joint Formula 2 tab PO QAM 10/30/23 11/06/23 History Zinc Gluconate [Zinc] 50 mg PO QAM 10/30/23 11/06/23 History lisinopriL [Zestril] 40 mg PO QAM 10/30/23 11/06/23 History Tamsulosin [Flomax] 0.4 mg PO DAILY #30 cap 11/07/23 Rx Allergies Allergy/AdvReac Type Severity Reaction Status Date / Time Penicillins Allergy QUIT Verified 11/06/23 10:46 BREATHING A CHILD Physical Exam Vitals: Vital Signs Temp Pulse Pulse Resp BP BP Pulse Ox 11/07/23 08:35 97.9 F 88 16 150/78 96 11/07/23 01:11 98.3 F 100 22 145/81 96 11/06/23 23:14 108 H 123/75 94 L 11/06/23 21:59 110 H 127/75 95 11/06/23 21:44 109 H 128/74 95 11/06/23 21:29 109 H 121/73 95 11/06/23 21:25 110 H 11/06/23 21:14 111 H 128/72 95 11/06/23 20:59 109 H 132/74 96 11/06/23 20:44 110 H 123/76 96 11/06/23 20:29 111 H 138/51 94 L 11/06/23 20:14 98.1 F 109 H 22 148/72 93 L 11/06/23 19:52 108 H 18 116/67 94 L 11/06/23 19:37 106 H 18 113/66 94 L 11/06/23 19:22 110 H 20 118/64 94 L 11/06/23 19:07 114 H 22 129/68 94 L 11/06/23 18:52 97.3 F L 107 H 24 138/60 94 L 11/06/23 13:03 87 18 152/81 94 L Intake and Output 11/06/23 11/07/23 11/07/23 22:59 06:59 14:59 Intake Total 400 Output Total 500 1200 Balance -100 -1200 Intake: IV 400 Output: Urine 425 1200 Estimated Blood Loss 75 Other: Voiding Method Indwelling Catheter Weight 111.9 kg Pt is in no acute distress. No respiratory distress. No jaundice or icterus. Healing abdominal surgical wound. Alert and oriented x 3 Results CBC & Chem 7: 11/07/23 06:11 11/07/23 06:11 Labs: Abnormal Lab Results - Last 24 Hours (Table) 11/07/23 11/07/23 Range/Units 06:11 06:11 WBC 10.31 H (4.50-10.00) X 10*3/uL RBC 4.09 L (4.40-5.60) X 10*6/uL Hgb 12.5 L (13.0-17.0) g/dL Hct 38.2 L (39.6-50.0) % Immature Gran # 0.05 H (0.00-0.04) X 10*3/uL Monocytes # 1.21 H (0.20-1.00) X 10*3/uL Eosinophils # 0.01 L (0.04-0.35) X 10*3/uL Chloride 111 H (96-109) mmol/L BUN/Creatinine Ratio 11.90 L (12.00-20.00) Ratio AST 47 H (14-35) U/L Total Protein 5.9 L (6.2-8.2) g/dL Albumin 3.7 L (3.8-4.9) g/dL Assessment and Plan Assessment: Colon mass Leukocytosis, postop and likely reactive Anemia, postop and due to surgery related blood loss Plan: Mr. Zaldivar is a very pleasant 63 yo male with newly found colon mass s/p resection, CT AP negative and pre-op CEA <2. - Post op care as per surgery team - Await final pathology, on review of pathology from biopsy from colonoscopy, he was found to have TA and hyperplastic polyp - He would also benefit from CT chest to complete staging work up - obtain records from [place] - Monitor CBC - I did briefly discuss the possible need of adjuvant FOLFOX x12 cycles depending on final pathology results vs surveillance - Pt will need to follow up in clinic 2-3 weeks after discharge to discuss final pathology results and adjuvant therapy if needed - No objections to discharge from oncology stand point once pt recovered from surgery and ready for discharge Discussed with pt/family and they were agreeable. All questions answered.
[2023-11-08] MEDS: metroNIDAZOLE-NS PMX 500 MG in SALINE 1 100ML.BAG IVPB SCH ×2 (00:53→10:12)
[2023-11-08] MEDS: SODIUM CHLORIDE 0.9% 1,000 ML IV SCH (01:29)
[2023-11-08] MEDS: ACETAMINOPHEN IV (For NPO) 1,000 MG in EMPTY BAG 1 BAG IVPB SCH ×2 (01:51→08:20)
[2023-11-08 07:53] VITALS: BP 169/75; PULSE 92; RESP 19; TEMP 98.5
[2023-11-08] MEDS: GABAPENTIN 300 MG CAP PO SCH (08:21)
[2023-11-08] MEDS: lisinopriL 20 MG TAB PO SCH (08:21)
[2023-11-08] MEDS: HEPARIN SODIUM,PORCINE 5,000 UNIT/ML 1 ML VIAL SQ SCH (09:07)
--- NOTE | 2023-11-08 11:01 | P.DS ---
Providers Date of admission: 11/06/23 09:55 Expected date of discharge: 11/08/23 Attending physician: Tawny Nina Consults: 11/06/23 07:55 Consult Physician Routine Consulting Provider: [facility] Consult Reason/Comments: Anesthesia Care Do you want consulting provider notified?: Yes 11/06/23 19:27 Consult Physician Routine Consulting Provider: [facility] Consult Reason/Comments: Urinary retention, prostate disorder Do you want consulting provider notified?: Yes, Notify in am 11/06/23 19:28 Consult Physician Routine Consulting Provider: Nolberto Flynn Consult Reason/Comments: Colon cancer Do you want consulting provider notified?: Yes, Notify in am 11/07/23 05:47 Consult Physician Urgent Consulting Provider: Vandana Manuel Consult Reason/Comments: medical management Do you want consulting provider notified?: Yes, Notify in am Primary care physician: Ysabel Schroeder [facility] Course: This is a 63-year-old male who underwent laparoscopic sigmoidectomy. Patient is doing well. He wished to go home. On exam vital signs are stable. Abdomen soft incision sites are clean dry tach. Plan - Discharge Summary Discharge Rx Participant: No New Discharge Prescriptions: New Acetaminophen Tab [Tylenol] 650 mg PO Q6H #30 tab Tamsulosin [Flomax] 0.4 mg PO DAILY #30 cap Ibuprofen [Motrin] 600 mg PO Q6HR PRN #40 tab PRN Reason: Pain No Action Cholecalciferol [Vitamin D3 (125 Mcg = 5000 Iu)] 125 mcg PO MOTHSA Zinc Gluconate [Zinc] 50 mg PO QAM Ascorbic Acid [Vitamin C] 1,000 mg PO QAM lisinopriL [Zestril] 40 mg PO QAM Christopher's Joint Formula 2 tab PO QAM Discharge Medication List Ascorbic Acid [Vitamin C] 1,000 mg PO QAM 10/30/23 [History] Cholecalciferol [Vitamin D3 (125 Mcg = 5000 Iu)] 125 mcg PO MOTHSA 10/30/23 [History] Christopher's Joint Formula 2 tab PO QAM 10/30/23 [History] Zinc Gluconate [Zinc] 50 mg PO QAM 10/30/23 [History] lisinopriL [Zestril] 40 mg PO QAM 10/30/23 [History] Tamsulosin [Flomax] 0.4 mg PO DAILY #30 cap 11/07/23 [Rx] Acetaminophen Tab [Tylenol] 650 mg PO Q6H #30 tab 11/08/23 [Rx] Ibuprofen [Motrin] 600 mg PO Q6HR PRN #40 tab 11/08/23 [Rx] Follow up Appointment(s)/Referral(s): Tawny Nina MD [STAFF PHYSICIAN] - 1 Week Discharge Disposition: HOME SELF-CARE
--- NOTE | 2023-11-08 15:27 | P.PN ---
Subjective Progress Note Date: 11/08/23 patient is a 63-year-old gentleman with past medical history significant for hypertension, recently diagnosed colon cancer who presented to the hospital for elective sigmoid colectomy with low anterior resection. He had colonoscopy with tattooing of a low-lying rectosigmoid junction colon cancer. Patient had discussion with surgery and decision was made to proceed with colectomy. Postoperatively internal medicine team were consulted for medical management 11/08. Patient seen and examined. Tolerating diet. No abdominal pain. Patient is medically stable for discharge REVIEW OF SYSTEMS: CONSTITUTIONAL: No fever, no malaise,. CARDIOVASCULAR: No chest pain, no palpitations, no syncope. PULMONARY: No shortness of breath, no cough, GASTROINTESTINAL: No diarrhea, no nausea, no vomiting, no abdominal pain. NEUROLOGICAL: No headaches, no weakness, PHYSICAL EXAMINATION: GENERAL: The patient is alert and oriented x3, not in any acute distress. Well developed, well nourished. HEENT: Pupils are round and equally reacting to light. EOMI. No scleral icterus. No conjunctival pallor. Normocephalic, atraumatic. No pharyngeal erythema. No thyromegaly. CARDIOVASCULAR: S1 and S2 present. No murmurs, rubs, or gallops. PULMONARY: Chest is clear to auscultation, no wheezing or crackles. ABDOMEN: Soft, nontender, nondistended, normoactive bowel sounds. Laparoscopic surgical incision seen MUSCULOSKELETAL: No joint swelling or deformity. EXTREMITIES: No cyanosis, clubbing, or pedal edema. NEUROLOGICAL: Gross neurological examination did not reveal any focal deficits. SKIN: No rashes. Assessment and plan Rectosigmoid colon cancer with bleeding Morbid obesity due to excess calories, BMI 39.8 Hypertensive heart disease Diverticulosis of prior diverticulitis Left pelvic adhesions from diverticula Urinary retention Monitor vital signs Continue pain management per surgery Patient medically stable for discharge Labs and medication were reviewed.. Continue same treatment. Continue with symptomatic treatment. Resume home medication. Monitor labs and vitals. DVT and GI prophylaxis. Further recommendations as per clinical course of the patient Dictation was produced using [email or web address] dictation software. please excuse any grammatical, word or spelling errors. Objective - Vital Signs Vital signs: Vital Signs Temp 98.5 F 11/08/23 06:49 Pulse 92 01/07/24 06:49 Resp 19 11/08/23 06:49 BP 169/75 11/08/23 06:49 Pulse Ox 96 11/08/23 06:49 FiO2 Intake & Output 11/07/23 11/08/23 11/08/23 18:59 06:59 18:59 Output Total 600 Balance -600 Output: Urine 600 Other: Voiding Method Indwelling Catheter Urinal # Voids 3 - Labs CBC & Chem 7: 11/07/23 06:11 11/07/23 06:11
== END 2023-11-08 13:23 | disposition home or self-care (01) | DRG 329 ==
LOC: 2ORMAIN 09:55 → 4SSUR 19:39
PROVIDERS: ADMIT Surgery Plastic and Reconstructive Surgery; ATTEND Surgery Plastic and Reconstructive Surgery
PROC: 0DNW4ZZ Release Peritoneum, Percutaneous Endoscopic Approach (ICD-10-PCS; principal; 2023-11-06 11:40)
PROC: 0DTN4ZZ Resection of Sigmoid Colon, Percutaneous Endoscopic Approach (ICD-10-PCS; principal; 2023-11-06 11:40)
PROC: 0DJD8ZZ Inspection of Lower Intestinal Tract, Via Natural or Artificial Opening Endoscopic (ICD-10-PCS; principal; 2023-11-06 11:40)
PROC: 8E0W4CZ Robotic Assisted Procedure of Trunk Region, Percutaneous Endoscopic Approach (ICD-10-PCS; principal; 2023-11-06 11:40)
DX: C19 Malignant neoplasm of rectosigmoid junction (principal); K56.2 Volvulus; D62 Acute posthemorrhagic anemia; K57.32 Diverticulitis of large intestine without perforation or abscess without bleeding; D72.829 Elevated white blood cell count, unspecified; E66.01 Morbid (severe) obesity due to excess calories; K57.90 Diverticulosis of intestine, part unspecified, without perforation or abscess without bleeding; K66.0 Peritoneal adhesions (postprocedural) (postinfection); R33.8 Other retention of urine; Z68.39 Body mass index [BMI] 39.0-39.9, adult; N40.1 Benign prostatic hyperplasia with lower urinary tract symptoms; Z79.899 Other long term (current) drug therapy
CPT/HCPCS: 64999; 80053; 85025; 88307

== ENCOUNTER 2023-12-08 09:51 | Emergency (ER) | payer MEDICARE, OTHER ==
--- NOTE | 2023-12-08 10:30 | ED ---
General Adult HPI - General Chief complaint: Abdominal Pain Stated complaint: Rosangela sent, CT Time Seen by Provider: 12/08/23 10:07 Source: patient, RN notes reviewed Mode of arrival: ambulatory Limitations: no limitations - History of Present Illness Initial comments: Patient is a 63-year-old male presenting to the ER with a chief complaint of rectal bleeding. Patient was sent here by Dr. Nina for further evaluation of rectal bleeding. Patient underwent a colectomy on 11-06-[address] Nina for colon cancer. Patient states since then he has been having constipation and diarrhea. He states that he has not been able to go to the bathroom without taking milk of magnesia. Patient also reports some rectal bleeding recently. He also describes rectal pain. Denies any abdominal pain, nausea, vomiting, fevers, chills, night sweats. Patient states he does have decreased appetite since surgery. Patient states he was taking Augmentin after surgery last dose on 11-20-2023. Patient denies any other complaints at this time. - Related Data Previous Rx's Medication Instructions Recorded Lidocaine [Lidocaine Rectal Cream 1 applic TOPICAL TID #30 gram 12/08/23 5%] Allergies Allergy/AdvReac Type Severity Reaction Status Date / Time Penicillins Allergy Unknown Verified 12/08/23 10:04 Review of Systems ROS Statement: Those systems with pertinent positive or pertinent negative responses have been documented in the HPI. ROS Other: All systems not noted in ROS Statement are negative. Past Medical History Past Medical History: Cancer, Hyperlipidemia, Hypertension Additional Past Medical History / Comment(s): rectal cancer History of Any Multi-Drug Resistant Organisms: None Reported Past Surgical History: Adenoidectomy, Orthopedic Surgery, Tonsillectomy Additional Past Surgical History / Comment(s): colorectomy, left leg surgery Past Psychological History: No Psychological Hx Reported Smoking Status: Former smoker Past Alcohol Use History: None Reported Past Drug Use History: None Reported General Exam Limitations: no limitations General appearance: alert, in no apparent distress Head exam: Present: atraumatic, normocephalic, normal inspection Eye exam: Present: normal appearance, PERRL, EOMI. Absent: scleral icterus, conjunctival injection, periorbital swelling Respiratory exam: Present: normal lung sounds bilaterally. Absent: respiratory distress, wheezes, rales, rhonchi, stridor Cardiovascular Exam: Present: regular rate, normal rhythm, normal heart sounds. Absent: systolic murmur, diastolic murmur, rubs, gallop, clicks GI/Abdominal exam: Present: soft, normal bowel sounds. Absent: distended, tenderness, guarding, rebound, rigid Neurological exam: Present: alert, oriented X3, CN II-XII intact Psychiatric exam: Present: normal affect, normal mood Skin exam: Present: warm, dry, intact, normal color. Absent: rash Course Vital Signs 12/08/23 12/08/23 12/08/23 10:01 11:00 12:00 Temperature 98 F Pulse Rate 74 67 67 Respiratory 16 18 18 Rate Blood Pressure 149/80 140/80 128/75 O2 Sat by Pulse 99 97 97 Oximetry 12/08/23 12/08/23 12:40 14:11 Temperature 97.9 F Pulse Rate 66 64 Respiratory 18 20 Rate Blood Pressure 131/85 133/84 O2 Sat by Pulse 97 96 Oximetry - Reevaluation(s) Reevaluation #1: 12/08/23 13:[address] Nina who stated patient could be discharged and follow-up outpatient. Medical Decision Making - Medical Decision Making Was pt. sent in by a medical professional or institution (, PA, BITUMINOUS PAVING MACHINE OPERATOR, urgent care, hospital, or halfway...) When possible be specific @ -Patient sent here from Dr. Gilbert's office due to rectal bleeding and pain status post colectomy on 11-06-2023. Did you speak to anyone other than the patient for history (EMS, parent, family, police, friend...)? What history was obtained from this source @ -Family providing some past medical history and HPI. Did you review nursing and triage notes (agree or disagree)? Why? @ -I reviewed and agree with nursing and triage notes Were old charts reviewed (outside hosp., previous admission, EMS record, old EKG, old radiological studies, urgent care reports/EKG's, halfway records)? Report findings @ -No old charts were reviewed Differential Diagnosis (chest pain, altered mental status, abdominal pain women, abdominal pain men, vaginal bleeding, weakness, fever, dyspnea, syncope, headache, dizziness, GI bleed, back pain, seizure, CVA, palpatations, mental health, musculoskeletal)? @ -Differential GI Bleed: Esophageal varices, aortoenteric fistula, Susi- Friedman, gastritis, peptic ulcer disease, diverticulosis, inflammatory bowel dise ase, hemorrhoids, fissure, colitis, malignancy, Meckels diverticulum, this is not meant to be an all-inclusive list. EKG interpreted by me (3pts min.). @ -None X-rays interpreted by me (1pt min.). @ -None done CT interpreted by me (1pt min.). @ -CT abdomen pelvis significant for eccentric left wall thickening near the rectum just past the anastomotic site. Prostatomegaly. Colonic diverticulosis without evidence of diverticulitis. There is also right lower lobe pulmonary nodules. U/S interpreted by me (1pt. min.). @ -None done What testing was considered but not performed or refused? (CT, X-rays, U/S, labs)? Why? @ -None What meds were considered but not given or refused? Why? @ -None Did you discuss the management of the patient with other professionals (professionals i.e. , PA, BITUMINOUS PAVING MACHINE OPERATOR, lab, RT, psych nurse, aids social worker, frame catcher, teacher, safety and security officer, high risk case manager)? Give summary @ -Yes I discussed this case with Dr. Nina who stated patient can be discharged and follow-up with her outpatient. Was smoking cessation discussed for >3mins.? @ -No Was critical care preformed (if so, how long)? @ -No Were there social determinants of health that impacted care today? How? (Homelessness, low income, unemployed, alcoholism, drug addiction, transportation, low edu. Level, literacy, decrease access to med. care, penitentiary, rehab)? @ -No Was there de-escalation of care discussed even if they declined (Discuss DNR or withdrawal of care, Hospice)? DNR status @ -No What co-morbidities impacted this encounter? (DM, HTN, Smoking, COPD, CAD, Cancer, CVA, ARF, Chemo, Hep., AIDS, mental health diagnosis, sleep apnea, morbid obesity)? @ -Colon cancer, obesity Was patient admitted / discharged? Hospital course, mention meds given and route, prescriptions, significant lab abnormalities, going to OR and other pertinent info. @ -Discharge. Patient is a 63-year-old male presenting to the ER with chief complaint of rectal bleeding and pain. Patient was sent here by Dr. Gilbert for further evaluation due to status post colectomy on 11-06-2023. History and physical exam were completed. Vitals stable. Patient in no signs of acute distress. He had no abdominal tenderness on exam with normal bowel sounds. Labs obtained in the ER were unremarkable. WBC 8, hgb 14. CT abdomen pelvis significant for eccentric left wall thickening near the rectum just past the anastomotic site. Prostatomegaly. Colonic diverticulosis without evidence of diverticulitis. There is also right lower lobe pulmonary nodules. I discussed this case with Dr. Nina who reviewed patient's CT. She states patient can be discharged and follow-up with her outpatient. Discussed lab and imaging results with patient and , all questions answered. I advised him to continue keej-[id number] Tylenol and Motrin for pain control. Patient prescribed lidocaine cream for rectal pain. I discussed with patient to continue to monitor for any worsening symptoms and return to the ER for any new or concerning symptoms. Return parameters were discussed. Patient be discharged in stable condition with follow-up to Dr. Nina. Patient and expressed understanding and agreement with care plan. Undiagnosed new problem with uncertain prognosis? @ -No Drug Therapy requiring intensive monitoring for toxicity (Heparin, Nitro, Insulin, Cardizem)? @ -No Were any procedures done? @ -No Diagnosis/symptom? @ -Rectal bleeding/rectal pain Acute, or Chronic, or Acute on Chronic? @ -Acute Uncomplicated (without systemic symptoms) or Complicated (systemic symptoms)? @ -Uncomplicated Side effects of treatment? @ -No Exacerbation, Progression, or Severe Exacerbation? @ -No Poses a threat to life or bodily function? How? (Chest pain, [place], [place], pneumonia, PE, COPD, DKA, ARF, appy, cholecystitis, CVA, Diverticulitis, Homicidal, Suicidal, threat to staff... and all critical care pts) @ -No - Lab Data Result diagrams: 12/08/23 10:29 12/08/23 10:29 Lab Results 12/08/23 12/08/23 12/08/23 Range/Units 10:29 10:29 10:29 WBC 8.0 (3.8-10.6) k/uL RBC 4.50 (4.30-5.90) m/uL Hgb 14.0 (13.0-17.5) gm/dL Hct 41.6 (39.0-53.0) % MCV 92.4 (80.0-100.0) fL MCH 31.1 (25.0-35.0) pg MCHC 33.6 (31.0-37.0) g/dL RDW 12.6 (11.5-15.5) % Plt Count 174 (150-450) k/uL MPV 8.7 Sodium 140 (137-145) mmol/L Potassium 4.4 (3.5-5.1) mmol/L Chloride 108 H (98-107) mmol/L Carbon Dioxide 25 (22-30) mmol/L Anion Gap 7 mmol/L BUN 16 (9-20) mg/dL Creatinine 0.84 (0.66-1.25) mg/dL Est GFR (CKD-EPI)AfAm >90 (>60 ml/min/1.73 sqM) Est GFR (CKD-EPI)NonAf >90 (>60 ml/min/1.73 sqM) Glucose 98 (74-99) mg/dL Plasma Lactic Acid Javad 1.2 (0.7-2.0) mmol/L Calcium 9.7 (8.4-10.2) mg/dL Total Bilirubin 0.7 (0.2-1.3) mg/dL AST 29 (17-59) U/L ALT 31 (4-49) U/L Alkaline Phosphatase 72 (38-126) U/L Total Protein 7.3 (6.3-8.2) g/dL Albumin 4.4 (3.5-5.0) g/dL Amylase 61 (30-110) U/L Lipase 105 (23-300) U/L Urine Color Urine Appearance (Clear) Urine pH (5.0-8.0) Ur Specific [place] (1.001-1.035) Urine Protein (Negative) Urine Glucose (UA) (Negative) Urine Ketones (Negative) Urine Blood (Negative) Urine Nitrite (Negative) Urine Bilirubin (Negative) Urine Urobilinogen (<2.0) mg/dL Ur Leukocyte Esterase (Negative) 12/08/23 Range/Units 10:29 WBC (3.8-10.6) k/uL RBC (4.30-5.90) m/uL Hgb (13.0-17.5) gm/dL Hct (39.0-53.0) % MCV (80.0-100.0) fL MCH (25.0-35.0) pg MCHC (31.0-37.0) g/dL RDW (11.5-15.5) % Plt Count (150-450) k/uL MPV Sodium (137-145) mmol/L Potassium (3.5-5.1) mmol/L Chloride (98-107) mmol/L Carbon Dioxide (22-30) mmol/L Anion Gap mmol/L BUN (9-20) mg/dL Creatinine (0.66-1.25) mg/dL Est GFR (CKD-EPI)AfAm (>60 ml/min/1.73 sqM) Est GFR (CKD-EPI)NonAf (>60 ml/min/1.73 sqM) Glucose (74-99) mg/dL Plasma Lactic Acid Javad (0.7-2.0) mmol/L Calcium (8.4-10.2) mg/dL Total Bilirubin (0.2-1.3) mg/dL AST (17-59) U/L ALT (4-49) U/L Alkaline Phosphatase (38-126) U/L Total Protein (6.3-8.2) g/dL Albumin (3.5-5.0) g/dL Amylase (30-110) U/L Lipase (23-300) U/L Urine Color Colorless Urine Appearance Clear (Clear) Urine pH 7.0 (5.0-8.0) Ur Specific [place] 1.004 (1.001-1.035) Urine Protein Negative (Negative) Urine Glucose (UA) Negative (Negative) Urine Ketones Negative (Negative) Urine Blood Negative (Negative) Urine Nitrite Negative (Negative) Urine Bilirubin Negative (Negative) Urine Urobilinogen <2.0 (<2.0) mg/dL Ur Leukocyte Esterase Negative (Negative) - Radiology Data Radiology results: report reviewed, image reviewed Disposition Clinical Impression: Rectal bleeding Disposition: HOME SELF-CARE Condition: Stable Instructions (If sedation given, give patient instructions): Rectal Bleeding (ED) Additional Instructions: Please follow-up with Dr. Nina as scheduled. Return to ER for any new or worsening concerns or symptoms Prescriptions: Lidocaine [Lidocaine Rectal Cream 5%] 1 applic TOPICAL TID #30 gram Is patient prescribed a controlled substance at d/c from ED?: No Referrals: Ysabel Schroeder MD [Primary Care Provider] - 1-2 days Tawny Nina MD [STAFF PHYSICIAN] - 1-2 days Time of Disposition: 13:25
[2023-12-08 10:58] LABS: HCT 41.6 % (39.0-53.0); MCH 31.1 pg (25.0-35.0); MCHC 33.6 g/dL (31.0-37.0); MCV 92.4 fL (80.0-100.0); Mean Platelet Volume 8.7; Platelet Count 174 k/uL (150-450); RDW 12.6 % (11.5-15.5)
[2023-12-08 11:08] LABS: Appearance,Urine Clear (Clear); Bilirubin,Urine Negative (Negative); Blood,Urine Negative (Negative); Color,Urine Colorless; Glucose,Urine (UA) Negative (Negative); Ketones,Urine Negative (Negative); Leukocyte Esterase,Urine Negative (Negative); Nitrite,Urine Negative (Negative); Protein,Urine Negative (Negative); Specific Gravity,Urine 1.004 (1.001-1.035); Urobilinogen,Urine <2.0 mg/dL (<2.0)
[2023-12-08 11:10] LABS: ALT 31 U/L (4-49); AST 29 U/L (17-59); African American GFR (CKD) >90 (>60 ml/min/1.73 sqM); Albumin 4.4 g/dL (3.5-5.0); Alkaline Phosphatase 72 U/L (38-126); Amylase 61 U/L (30-110); Anion Gap 7 mmol/L; Blood Urea Nitrogen 16 mg/dL (9-20); Calcium 9.7 mg/dL (8.4-10.2); Carbon Dioxide 25 mmol/L (22-30); Chloride 108 mmol/L (98-107); Glucose 98 mg/dL (74-99); Lipase 105 U/L (23-300); Non-African American GFR(CKD) >90 (>60 ml/min/1.73 sqM); Potassium 4.4 mmol/L (3.5-5.1); Sodium 140 mmol/L (137-145); Total Bilirubin 0.7 mg/dL (0.2-1.3); Total Protein 7.3 g/dL (6.3-8.2)
--- NOTE | 2023-12-08 12:59 | CT ---
EXAMINATION TYPE: CT abdomen pelvis w con CT DLP: 1649.6 mGycm, Automated exposure control for dose reduction was used. DATE OF EXAM: 12/08/2023 12:41 PM COMPARISON: 10/20/2023 CLINICAL INDICATION:Male, 63 years old with history of rectal bleeding; Bright red rectal bleeding an d rectal pain. Hx of colon resection last month. TECHNIQUE: Axial CT abdomen pelvis w con;Sagittal and coronal reformats were created on a separate w orkstation. Contrast used:100ml mL of Isovue 300 with IV Contrast, (none if empty) Oral contrast used: without Oral Contrast (none if empty) FINDINGS: LOWER CHEST: Medial lower lobe 5 mm pulmonary nodule. Additional pulmonary nodule more superiorly obdulio suring 6 mm. These are stable from prior on 10/20/2023. ABDOMEN LIVER: Scattered subcentimeter probable hepatic cyst. GALLBLADDER AND BILE DUCTS: Unremarkable. PANCREAS: Unremarkable. SPLEEN: Unremarkable. ADRENAL GLANDS: Unremarkable. KIDNEYS AND URETERS: No evidence of hydronephrosis or renal calculus. The ureters are unremarkable. PELVIS BLADDER: Unremarkable REPRODUCTIVE: Prostate is enlarged in size measuring 5.7 cm in transverse dimension. ABDOMEN & PELVIS STOMACH AND BOWEL: There is eccentric left wall thickening of the rectum measuring up to 15 mm.. Sutu res also present obscuring from this region. Scattered colonic diverticula present. Moderate amount s tool in the colon. The appendix is normal. PERITONEUM/RETROPERITONEUM: No evidence of pneumoperitoneum or free fluid. VASCULATURE: No evidence of aortic aneurysm. MUSCULOSKELETAL: No acute osseous abnormalities LYMPH NODES: No gross evidence for lymphadenopathy. SOFT TISSUE/ABDOMINAL WALL: Fat-containing umbilical hernia. IMPRESSION: 1. There is eccentric left wall thickening near the rectum just past the anastomotic site. If there is is a history of malignancy findings could represent neoplasia versus nondistention versus inflamma tion. Direct visualization recommended. 2. Prostatomegaly, correlate serum PSA. 3. Colonic diverticulosis. 4. Right lower lobe pulmonary nodules consider follow-up in 12 months in high-risk patient or per [place] eischner Society guidelines.
[2023-12-08 14:33] VITALS: BP 133/84; PULSE 64; RESP 20; TEMP 97.9
== END 2023-12-08 14:19 | disposition home or self-care (01) ==
LOC: EC 09:51 → MERGE 09:51 → EC 14:19
DX: K57.30 Diverticulosis of large intestine without perforation or abscess without bleeding (principal); K62.5 Hemorrhage of anus and rectum; I10 Essential (primary) hypertension; Z87.891 Personal history of nicotine dependence; Z88.0 Allergy status to penicillin
CPT/HCPCS: 36415; 80053; 82150; 83605; 83690; 85027; 81003; 74177; 99284; Q9967

== ENCOUNTER → 2024-01-14 | Outpatient (CLI) | payer MEDICARE | END | disposition home or self-care (01) | LOC: LABWHC1 14:54 | PROVIDERS: ATTEND Radiology Radiation Oncology | DX: C20 Malignant neoplasm of rectum (principal) | CPT/HCPCS: 36415; 84153 ==

== ENCOUNTER → 2024-01-14 | Outpatient (CLI) | payer MEDICARE ==
[2024-01-14 11:27] LABS: African American GFR (CKD) >90 (>60 ml/min/1.73 sqM); Blood Urea Nitrogen 25 mg/dL (9-20); Non-African American GFR(CKD) >90 (>60 ml/min/1.73 sqM)
--- NOTE | 2024-01-14 12:28 | CT ---
EXAMINATION TYPE: CT chest w con CT DLP: 775 mGycm, Automated exposure control for dose reduction was used. DATE OF EXAM: 01/14/2024 11:44 AM COMPARISON: Chest radiograph from same day. 12/08/2023 and 10/20/2023. CLINICAL INDICATION:Male, 63 years old with history of C20 RECTAL CA, Rectal cancer. TECHNIQUE: Multiple axial images were obtained through the chest. Sagittal and coronal reformats were created for review. Contrast used:100ml mL of Isovue 370 with IV Contrast (None if empty) Oral contrast used: (None if empty) FINDINGS: LUNGS/ PLEURA: Few scattered nodules identified including right lower lung 5 mm image 40 series 3, ri ght upper lung 3 mm image 17, left lower lung subpleural 3 mm image 59. No focal consolidation, pneum othorax or pleural effusion. No lymphadenopathy. No focal consolidation, pneumothorax or pleural effu marisabel. AIRWAY: Patent and unremarkable. HEART: Size within normal limits. MEDIASTINUM: No gross evidence of adenopathy. VASCULATURE: No aortic aneurysm. MUSCULOSKELETAL: No acute osseous abnormalities SOFT TISSUES/LYMPH NODES: Unremarkable. LOWER NECK: No significant findings. UPPER ABDOMEN: Scattered colonic diverticula. Arterial phase enhancing foci seen throughout the liver example series 3 image 73 image 72 image 69 image 59. IMPRESSION: 1. Scattered arterial enhancing lesions of the liver which are indeterminate. Similar findings on 12/08/2023 exam and felt to be present 10/20/2023. 2. Scattered sub-6 mm pulmonary nodules which are indeterminate. 3. No lymphadenopathy or suspicious osseous lesions identified. 4. No evidence for acute thoracic process.
== END | disposition home or self-care (01) ==
LOC: RADCTMAIN 10:51
PROVIDERS: ATTEND Internal Medicine Hematology & Oncology
DX: R91.8 Other nonspecific abnormal finding of lung field (principal); Z85.048 Personal history of other malignant neoplasm of rectum, rectosigmoid junction, and anus
CPT/HCPCS: 82565; 84520; 71260; 36415; Q9967

== ENCOUNTER → 2024-03-23 | Outpatient (CLI) | payer MEDICARE ==
--- NOTE | 2024-03-23 13:06 | MR ---
EXAMINATION TYPE: MR pelvis wo/w con DATE OF EXAM: 03/23/2024 10:31 AM CLINICAL INDICATION:Male, 63 years old with history of C20 MALIGNANT NEOPLASM OF RECTUM,C77.5; PHH, R ectal cancer, secondary malignant neoplasm of intrapelvic lymph nodes. COMPARISON: 01/04/2024 TECHNIQUE: Triplane multisequence imaging was performed of the pelvis. IV Contrast: 10 cc Gadavist FINDINGS: IMAGE QUALITY: Adequate PRIMARY TUMOR: MORPHOLOGY, LOCATION, AND CHARACTERISTICS: Distance to anal verge: 12.4 cm, similar when measuring similarly. Distance to top of anal sphincter complex/anorectal junction: 6.5 cm Relationship to the anterior peritoneal reflection: above Craniocaudal length: 5.0 cm Circumferential location (o'clock position): 12th o'clock to 7 o'clock this is poorly evaluated due t o non-MRI rectal mass protocol technique. Morphology: Polypoid Mucinous: No LYMPH NODES: Poorly evaluated due to non-MRI rectal mass technique. Is at least one lymph node remain ing in the presacral space series 301 image 27 no diffusion-weighted sequences are performed for bett er sensitivity for lymph nodes. There is a left perirectal lymph node also present measuring 4 mm ser ies 411 image 14 and 5 mm series 201 image 22. IMPRESSION: Limited evaluation due to non-rectal mass protocol MRI. There is overall positive response to therapy with decrease in size of tumor. There remains a few scattered perirectal/mesorectal fascia lymph nod es that are suspicious.
== END | disposition home or self-care (01) ==
LOC: RADMRIMAIN 09:12
PROVIDERS: ATTEND Radiology Radiation Oncology
DX: C77.5 Secondary and unspecified malignant neoplasm of intrapelvic lymph nodes (principal); C20 Malignant neoplasm of rectum
CPT/HCPCS: 72197; A9585

== ENCOUNTER → 2024-04-18 | Outpatient (CLI) | payer MEDICARE ==
[2024-04-18 14:40] LABS: African American GFR (CKD) >90 (>60 ml/min/1.73 sqM); Blood Urea Nitrogen 24 mg/dL (9-20); Non-African American GFR(CKD) >90 (>60 ml/min/1.73 sqM)
--- NOTE | 2024-04-18 16:17 | CT ---
EXAMINATION TYPE: CT abdomen pelvis w con DATE OF EXAM: 04/18/2024 COMPARISON: 12/08/2023 HISTORY: COLON CA CT DLP: 1352.9 mGycm CONTRAST: CT scan of the abdomen and pelvis is performed with Oral Contrast and with IV Contrast, patient injec paige with 100 mL of Isovue 300. FINDINGS: LUNG BASES-: No visible nodule. No infiltrate. LIVER/GB: No calcified gallstones. No space occupying hepatic lesion. Biliary tree is of normal ca liber. PANCREAS: No inflammation. No distinct mass. SPLEEN: No splenic enlargement. No lesion seen. ADRENALS: No nodule. No thickening. KIDNEYS/BLADDER: No hydronephrosis. No nephrolithiasis. No distinct renal mass. Urinary bladder g rossly unremarkable. BOWEL: Partial sigmoidectomy change is noted. No evidence recurrent mass. There is moderate fecal sta sis seen. Nonvisualization of the appendix. Small bowel is of normal caliber. GENITAL ORGANS: No gross abnormality. LYMPH NODES: No greater than 1cm abdominal or pelvic lymph nodes are appreciated. AORTA: No significant abnormality. OSSEOUS STRUCTURES: No significant abnormality is seen. OTHER: No significant additional abnormality is seen. IMPRESSION: 1. Partial sigmoidectomy change is noted. No evidence recurrent mass. No evidence of metastatic disea se to the abdomen or pelvis.
== END | disposition home or self-care (01) ==
LOC: RADCTMAIN 14:02
PROVIDERS: ATTEND Internal Medicine Hematology & Oncology
DX: C18.7 Malignant neoplasm of sigmoid colon (principal); C20 Malignant neoplasm of rectum; I10 Essential (primary) hypertension; R91.1 Solitary pulmonary nodule
CPT/HCPCS: 82565; 84520; 74177; 36415; Q9967

== ENCOUNTER → 2024-05-12 | Outpatient (CLI) | payer MEDICARE ==
--- NOTE | 2024-05-12 13:22 | US ---
EXAMINATION TYPE: US venous doppler duplex LE LT DATE OF EXAM: 05/12/2024 1:01 PM COMPARISON: NONE CLINICAL INDICATION: Male, 63 years old with history of R22.42 LLE SWELLING; Intermittent swelling of LLE since first chemo treatment beginning of April. SIDE PERFORMED: Left TECHNIQUE: The lower extremity deep venous system is examined utilizing real time linear array sonog glenis with graded compression, doppler sonography and color-flow sonography. VESSELS IMAGED: Common Femoral Vein Deep Femoral Vein Greater Saphenous Vein * Femoral Vein Popliteal Vein Small Saphenous Vein * Proximal Calf Veins (* superficial vessels) Right Leg: NA Left Leg: Positive for DVT; Proximal femoral vein to proximal calf veins. The clot appears to expand the vein and appears occlusive. This suggests a more acute DVT. IMPRESSION: Exam positive for left lower extremity DVT extending from the upper femoral vein down int o the calf veins.
== END | disposition home or self-care (01) ==
LOC: RADUSWWP 12:46
PROVIDERS: ATTEND Internal Medicine Hematology & Oncology
DX: C18.7 Malignant neoplasm of sigmoid colon (principal); C20 Malignant neoplasm of rectum; R91.1 Solitary pulmonary nodule; I10 Essential (primary) hypertension; I82.412 Acute embolism and thrombosis of left femoral vein

== ENCOUNTER → 2024-06-16 | Outpatient (CLI) | payer MEDICARE ==
--- NOTE | 2024-07-14 10:15 | PE ---
Patient: Dwight Zaldivar Ordering Physician: Unknown, Unknown ID: [id number] Phone, Pager: Phone: N/A Pager: N/A : 1960 Age/Gender: 63Y, M Primary Location: N/A Procedure: PETCT SKULL TO THI Study Date: 06/16/2024 12:59:21 PM EXAMINATION TYPE: PET CT fusion skull to thigh DATE OF EXAM: 06/21/2024 CLINICAL INDICATION: Colorectal cancer. TECHNIQUE: Following the intravenous administration of 12.44 mCi of F-18 FDG, whole body images are performed from the skull base to the midthigh. Images are reviewed on the computer in the coronal, axial, and sagittal planes. Reconstructed rotating images are created on independent workstation and reviewed on the computer. A non-contrast CT is performed in conjunction with the PET scan. Glucose level 95 mg/dL CT DLP: 926 mGycm, Automated exposure control for dose reduction was used. COMPARISON: CT 04/18/2024, PET/CT None, MRI: None FINDINGS: Mediastinal SUV mean is 2.0. Hepatic parenchyma SUV mean is 2.7. SKULL BASE AND NECK: No suspicious radiotracer activity. CHEST, MEDIASTINUM, AND HILAR REGION: * No suspicious radiotracer activity. * Right lower lobe 6 mm pulmonary nodule. This below threshold for PET/CT. No abnormality. Max SUV 1 .3. * ABDOMEN AND PELVIS: * Postsurgical changes of the rectosigmoid junction with wall thickening up to 11 mm. series 3 image 210. Focal FDG activity towards the rectum within the left wall is possibly physiologic versus focal neoplasm. Max SUV 9.2. * Focal uptake within the right posterior lateral peripheral zone of the prostate gland max SUV 8.4. MUSCULOSKELETAL STRUCTURES: No suspicious radiotracer activity. OTHER CT: Large stool burden throughout the colon. Postsurgical changes with rectosigmoid junction. S cattered colonic diverticula. Prostatomegaly. Atherosclerosis of arteriovascular. Small hiatal hernia . Left Okrarw-k-Oanr with tip terminating in the superior vena cava. Fat-containing umbilical hernia. IMPRESSION: 1. Post surgical changes the rectosigmoid junction with mild left wall thickening. Focal uptake on t he left may represent physiologic uptake versus neoplasm. Majority of the wall thickening does not mancini ve increased radiotracer uptake. Attention on follow-up imaging. 2. Right posterior lateral prostate FDG activity. Correlate with PSA and consider MRI prostate gland for complete workup. 3. Prostatomegaly with wall thickening of the urinary bladder correlate for chronic bladder outlet o bstruction. Correlate with urinalysis for cystitis. 4. Right lower lobe 6 mm pulmonary nodule without increased uptake. Attention follow-up imaging. Con composition teacher surveillance of this lesion in one year with CT chest.
== END | disposition home or self-care (01) ==
LOC: RADPETMAIN 11:26
PROVIDERS: ATTEND Internal Medicine Hematology & Oncology
DX: C20 Malignant neoplasm of rectum (principal); C19 Malignant neoplasm of rectosigmoid junction; N40.0 Benign prostatic hyperplasia without lower urinary tract symptoms; R91.1 Solitary pulmonary nodule; N32.89 Other specified disorders of bladder
CPT/HCPCS: 78815; A9552

== ENCOUNTER → 2024-10-12 | Outpatient (CLI) | payer MEDICARE ==
--- NOTE | 2024-10-12 22:57 | US ---
EXAMINATION TYPE: US venous doppler duplex LE BI DATE OF EXAM: 10/12/2024 2:24 PM COMPARISON: 05/12/24 CLINICAL INDICATION: Male, 64 years old with history of I80.10; Recheck on DVT in left leg, On blood thinners since May. TECHNIQUE: The lower extremity deep venous system is examined utilizing real time linear array sonog glenis with graded compression, color doppler sonography, and spectral doppler. SIDE PERFORMED: Bilateral FINDINGS: VESSELS IMAGED: Common Femoral Vein Deep Femoral Vein Greater Saphenous Vein * Femoral Vein Popliteal Vein Small Saphenous Vein * Proximal Calf Veins (* superficial vessels) Right Leg: Negative for DVT Rouleaux flow noted throughout leg, Color Doppler imaging shows patency of the vessels. Spectral waveforms are within normal limits. Left Leg: There are echoes seen in the prox and mid femoral vein with partial compression. This is a n improvement from prior in May. Rouleaux flow noted throughout leg, Color Doppler imaging shows pat ency of the vessels. Spectral waveforms are within normal limits. IMPRESSION: 1. 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 2. Rouleaux flow present bilaterally. Patient is at risk for thrombus formation. [facility], , 10/12/2024 10:55 PM
== END | disposition home or self-care (01) ==
LOC: RADUSWWP 13:43
PROVIDERS: ATTEND Internal Medicine Hematology & Oncology
DX: Z03.89 Encounter for observation for other suspected diseases and conditions ruled out (principal); I82.412 Acute embolism and thrombosis of left femoral vein
CPT/HCPCS: 93970

== ENCOUNTER 2024-10-24 14:01 | Inpatient (IN) | payer MEDICARE ==
[2024-10-24] MEDS: KETOROLAC 15 MG/ML 1 ML VIAL IVP STA (15:46)
[2024-10-24] MEDS: HYDROmorphone 0.5 MG/0.5 ML SYRINGE IVP STA (15:46)
[2024-10-24 15:54] LABS: Basophils % (A) 0 %; Eosinophils # (A) 0.1 k/uL (0-0.7); Eosinophils % (A) 1 %; HCT 29.9 % (39.0-53.0); HGB 9.8 gm/dL (13.0-17.5); Lymphocytes # (A) 0.7 k/uL (1.0-4.8); Lymphocytes % (A) 5 %; MCH 30.1 pg (25.0-35.0); MCHC 32.9 g/dL (31.0-37.0); MCV 91.6 fL (80.0-100.0); Mean Platelet Volume 7.5; Monocytes # (A) 0.7 k/uL (0-1.0); Monocytes % (A) 5 %; Neutrophils # (A) 12.9 k/uL (1.3-7.7); Neutrophils % (A) 89 %; Platelet Count 399 k/uL (150-450); RBC 3.26 m/uL (4.30-5.90); RDW 14.7 % (11.5-15.5); WBC 14.5 k/uL (3.8-10.6)
[2024-10-24 16:05] LABS: Appearance,Urine Clear (Clear); Bilirubin,Urine Negative (Negative); Blood,Urine Negative (Negative); Color,Urine Colorless; Glucose,Urine (UA) Negative (Negative); Ketones,Urine Negative (Negative); Leukocyte Esterase,Urine Negative (Negative); Nitrite,Urine Negative (Negative); Protein,Urine Negative (Negative); Specific Gravity,Urine 1.008 (1.001-1.035); Urobilinogen,Urine <2.0 mg/dL (<2.0)
[2024-10-24 16:06] LABS: ALT 16 U/L (4-49); AST 19 U/L (17-59); African American GFR (CKD) >90 (>60 ml/min/1.73 sqM); Albumin 3.3 g/dL (3.5-5.0); Alkaline Phosphatase 105 U/L (38-126); Amylase 62 U/L (30-110); Anion Gap 8 mmol/L; Blood Urea Nitrogen 25 mg/dL (9-20); Calcium 9.6 mg/dL (8.4-10.2); Carbon Dioxide 21 mmol/L (22-30); Chloride 103 mmol/L (98-107); Glucose 94 mg/dL (74-99); Lipase 122 U/L (23-300); Non-African American GFR(CKD) 83 (>60 ml/min/1.73 sqM); Sodium 132 mmol/L (137-145); Total Bilirubin 0.2 mg/dL (0.2-1.3); Total Protein 6.2 g/dL (6.3-8.2)
--- NOTE | 2024-10-24 16:30 | ED ---
Abdominal Pain HPI - General Chief Complaint: Abdominal Pain Stated Complaint: perineal pain Time Seen by Provider: 10/24/24 14:16 Source: patient, RN notes reviewed Mode of arrival: ambulatory Limitations: no limitations - History of Present Illness Initial Comments: This is a 64-year-old male with history of rectal cancer and colectomy presenting with rectal pain x 4 days. Patient states his rectal pain worsens with direct pressure and while sitting. Denies bleeding or drainage. Endorses recent drain tube at [facility] placed for a right pelvic abscess on 10/04/2024. States he was sent home with oxycodone, having since run out. State s he now takes Tylenol/ibuprofen with minimal relief of rectal pain. Endorses ongoing use of Flagyl and cefuroxime for abscess. States ostomy output remains good without obvious blood/melena but patient's notes ostomy opening appears more red than usual with some bleeding noted from ostomy site. Denies fever, chills, chest pain, dyspnea, abdominal pain, urinary symptoms. MD Complaint: other (Rectal pain) Onset/Timin -: days(s) Severity: severe Context: recent surgery/procedure Associated Symptoms: denies other symptoms - Related Data Home Medications Medication Instructions Recorded Confirmed Acetaminophen Tab [Tylenol] 650 mg PO Q6H PRN 10/24/24 10/24/24 Apixaban [Eliquis] 5 mg PO BID 10/24/24 10/24/24 cefuroxime axetiL [Ceftin] 500 mg PO BID 10/24/24 10/24/24 metroNIDAZOLE [Flagyl] 500 mg PO BID 10/24/24 10/24/24 oxyCODONE HCL [OxyIR] 5 mg PO Q6H PRN 10/24/24 10/24/24 Allergies Allergy/AdvReac Type Severity Reaction Status Date / Time Penicillins Allergy Dyspnea & Verified 10/24/24 18:12 Rash Review of Systems ROS Statement: Those systems with pertinent positive or pertinent negative responses have been documented in the HPI. ROS Other: All systems not noted in ROS Statement are negative. Past Medical History Past Medical History: Cancer, Hyperlipidemia, Hypertension Additional Past Medical History / Comment(s): rectal cancer History of Any Multi-Drug Resistant Organisms: None Reported Past Surgical History: Adenoidectomy, Orthopedic Surgery, Tonsillectomy Additional Past Surgical History / Comment(s): colorectomy, left leg surgery Past Anesthesia/Blood Transfusion Reactions: No Reported Reaction Past Psychological History: No Psychological Hx Reported Smoking Status: Former smoker, Never smoker Past Alcohol Use History: None Reported Past Drug Use History: None Reported General Exam Limitations: no limitations General appearance: alert, in no apparent distress Head exam: Present: atraumatic, normocephalic, normal inspection Eye exam: Present: normal appearance, PERRL, EOMI. Absent: scleral icterus, conjunctival injection, periorbital swelling ENT exam: Present: normal exam, mucous membranes moist Neck exam: Present: normal inspection. Absent: tenderness, meningismus, lymphadenopathy Respiratory exam: Present: normal lung sounds bilaterally. Absent: respiratory distress, wheezes, rales, rhonchi, stridor Cardiovascular Exam: Present: regular rate, normal rhythm, normal heart sounds. Absent: systolic murmur, diastolic murmur, rubs, gallop, clicks GI/Abdominal exam: Present: soft, normal bowel sounds, other (Ostomy site on right side of abdomen appears beefy and erythematous without obvious active bleeding.). Absent: distended, tenderness, guarding, rebound, rigid Rectal exam: Present: normal inspection. Absent: hemorrhoids, mass Extremities exam: Present: normal inspection, full ROM, normal capillary refill. Absent: tenderness, pedal edema, joint swelling, calf tenderness Back exam: Present: normal inspection Neurological exam: Present: alert, oriented X3, CN II-XII intact Psychiatric exam: Present: normal affect, normal mood Skin exam: Present: warm, dry, intact, normal color. Absent: rash Course Vital Signs 10/24/24 10/24/24 10/24/24 14:22 16:50 18:07 Temperature 97.7 F Pulse Rate 115 H 88 Respiratory 18 18 18 Rate Blood Pressure 117/73 106/71 124/74 O2 Sat by Pulse 98 98 100 Oximetry Medical Decision Making - Medical Decision Making Was pt. sent in by a medical professional or institution (, PA, TOWEL ROLLING MACHINE OPERATOR, urgent care, hospital, or senior care...) When possible be specific @ -No Did you speak to anyone other than the patient for history (EMS, parent, family, police, friend...)? What history was obtained from this source @ -No Did you review nursing and triage notes (agree or disagree)? Why? @ -I reviewed and agree with nursing and triage notes Were old charts reviewed (outside hosp., previous admission, EMS record, old EKG, old radiological studies, urgent care reports/EKG's, senior care records)? Report findings @ -No old charts were reviewed Differential Diagnosis (chest pain, altered mental status, abdominal pain women, abdominal pain men, vaginal bleeding, weakness, fever, dyspnea, syncope, headache, dizziness, GI bleed, back pain, seizure, CVA, palpatations, mental health, musculoskeletal)? @ -Differential Abdominal Pain Men: Appendicitis, cholecystitis, diverticulosis, ischemic bowel, pancreatitis, he patitis, UTI, gastroenteritis, AAA, incarcerated hernia, bowel obstruction, constipation, inflammatory bowel, hepatitis, peptic ulcer disease, splenic infarction, perforated viscus, testicular torsion, this is not meant to be an all-inclusive list EKG interpreted by me (3pts min.). @ -Not done X-rays interpreted by me (1pt min.). @ -None done CT interpreted by me (1pt min.). @ -Abdomen/pelvic CT shows extensive fluid throughout right retroperitoneum and possible correlation to perforated ascending colon/cecum. U/S interpreted by me (1pt. min.). @ -None done What testing was considered but not performed or refused? (CT, X-rays, U/S, labs)? Why? @ -None What meds were considered but not given or refused? Why? @ -None Did you discuss the management of the patient with other professionals (professionals i.e. , PA, TOWEL ROLLING MACHINE OPERATOR, lab, RT, psych nurse, marriage and family social worker, sustainability manager, teacher, chief digital officer, disease case manager)? Give summary @ -Consulted Dr. Earl who approved admission and advised consult with surgery and oncology. Was smoking cessation discussed for >3mins.? @ -No Was critical care preformed (if so, how long)? @ -No Were there social determinants of health that impacted care today? How? (Homelessness, low income, unemployed, alcoholism, drug addiction, transportation, low edu. Level, literacy, decrease access to med. care, penitentiary, rehab)? @ -No Was there de-escalation of care discussed even if they declined (Discuss DNR or withdrawal of care, Hospice)? DNR status @ -No What co-morbidities impacted this encounter? (DM, HTN, Smoking, COPD, CAD, Cancer, CVA, ARF, Chemo, Hep., AIDS, mental health diagnosis, sleep apnea, morbid obesity)? @ -Rectal CA, colostomy Was patient admitted / discharged? Hospital course, mention meds given and route, prescriptions, significant lab abnormalities, going to OR and other pertinent info. @ -Lab work shows leukocytosis (14.5) with left shift. Elevated BUN (25). UA and stool occult blood negative. Stool culture and C. difficile sent. Rectum appears unremarkable. Abdomen/pelvic CT shows extensive fluid throughout right retroperitoneum and possible correlation to perforated ascending colon/cecum. Patient provided Toradol and Dilaudid for pain. Consulted Dr. Earl who approved admission and advised consult with surgery and oncology. Undiagnosed new problem with uncertain prognosis? @ -Colon perforation Drug Therapy requiring intensive monitoring for toxicity (Heparin, Nitro, Insulin, Cardizem)? @ -No Were any procedures done? @ -No Diagnosis/symptom? @ -Ascending colitis with perforation Acute, or Chronic, or Acute on Chronic? @ -Acute Uncomplicated (without systemic symptoms) or Complicated (systemic symptoms)? @ -Complicated Side effects of treatment? @ -No Exacerbation, Progression, or Severe Exacerbation? @ -No Poses a threat to life or bodily function? How? (Chest pain, [place], [place], pneumonia, PE, COPD, DKA, ARF, appy, cholecystitis, CVA, Diverticulitis, Homicidal, Suicidal, threat to staff... and all critical care pts) @ -Colon perforation, sepsis and - Lab Data Result diagrams: 10/24/24 15:40 10/24/24 15:40 Lab Results 10/24/24 10/24/24 10/24/24 Range/Units 15:40 15:40 15:40 WBC 14.5 H (3.8-10.6) k/uL RBC 3.26 L (4.30-5.90) m/uL Hgb 9.8 L (13.0-17.5) gm/dL Hct 29.9 L (39.0-53.0) % MCV 91.6 (80.0-100.0) fL MCH 30.1 (25.0-35.0) pg MCHC 32.9 (31.0-37.0) g/dL RDW 14.7 (11.5-15.5) % Plt Count 399 (150-450) k/uL MPV 7.5 Neutrophils % 89 % Lymphocytes % 5 % Monocytes % 5 % Eosinophils % 1 % Basophils % 0 % Neutrophils # 12.9 H (1.3-7.7) k/uL Lymphocytes # 0.7 L (1.0-4.8) k/uL Monocytes # 0.7 (0-1.0) k/uL Eosinophils # 0.1 (0-0.7) k/uL Basophils # 0.0 (0-0.2) k/uL Sodium 132 L (137-145) mmol/L Potassium 5.0 (3.5-5.1) mmol/L Chloride 103 (98-107) mmol/L Carbon Dioxide 21 L (22-30) mmol/L Anion Gap 8 mmol/L BUN 25 H (9-20) mg/dL Creatinine 0.96 (0.66-1.25) mg/dL Est GFR (CKD-EPI)AfAm >90 (>60 ml/min/1.73 sqM) Est GFR (CKD-EPI)NonAf 83 (>60 ml/min/1.73 sqM) Glucose 94 (74-99) mg/dL Plasma Lactic Acid Javad 0.9 (0.7-2.0) mmol/L Calcium 9.6 (8.4-10.2) mg/dL Total Bilirubin 0.2 (0.2-1.3) mg/dL AST 19 (17-59) U/L ALT 16 (4-49) U/L Alkaline Phosphatase 105 (38-126) U/L Total Protein 6.2 L (6.3-8.2) g/dL Albumin 3.3 L (3.5-5.0) g/dL Amylase 62 (30-110) U/L Lipase 122 (23-300) U/L Urine Color Urine Appearance (Clear) Urine pH (5.0-8.0) Ur Specific [place]put[place] (1.001-1.035) Urine Protein (Negative) Urine Glucose (UA) (Negative) Urine Ketones (Negative) Urine Blood (Negative) Urine Nitrite (Negative) Urine Bilirubin (Negative) Urine Urobilinogen (<2.0) mg/dL Ur Leukocyte Esterase (Negative) Stool Occult Blood (Negative) 10/24/24 10/24/24 Range/Units 15:49 17:05 WBC (3.8-10.6) k/uL RBC (4.30-5.90) m/uL Hgb (13.0-17.5) gm/dL Hct (39.0-53.0) % MCV (80.0-100.0) fL MCH (25.0-35.0) pg MCHC (31.0-37.0) g/dL RDW (11.5-15.5) % Plt Count (150-450) k/uL MPV Neutrophils % % Lymphocytes % % Monocytes % % Eosinophils % % Basophils % % Neutrophils # (1.3-7.7) k/uL Lymphocytes # (1.0-4.8) k/uL Monocytes # (0-1.0) k/uL Eosinophils # (0-0.7) k/uL Basophils # (0-0.2) k/uL Sodium (137-145) mmol/L Potassium (3.5-5.1) mmol/L Chloride (98-107) mmol/L Carbon Dioxide (22-30) mmol/L Anion Gap mmol/L BUN (9-20) mg/dL Creatinine (0.66-1.25) mg/dL Est GFR (CKD-EPI)AfAm (>60 ml/min/1.73 sqM) Est GFR (CKD-EPI)NonAf (>60 ml/min/1.73 sqM) Glucose (74-99) mg/dL Plasma Lactic Acid Javad (0.7-2.0) mmol/L Calcium (8.4-10.2) mg/dL Total Bilirubin (0.2-1.3) mg/dL AST (17-59) U/L ALT (4-49) U/L Alkaline Phosphatase (38-126) U/L Total Protein (6.3-8.2) g/dL Albumin (3.5-5.0) g/dL Amylase (30-110) U/L Lipase (23-300) U/L Urine Color Colorless Urine Appearance Clear (Clear) Urine pH 5.0 (5.0-8.0) Ur Specific [place]put[place] 1.008 (1.001-1.035) Urine Protein Negative (Negative) Urine Glucose (UA) Negative (Negative) Urine Ketones Negative (Negative) Urine Blood Negative (Negative) Urine Nitrite Negative (Negative) Urine Bilirubin Negative (Negative) Urine Urobilinogen <2.0 (<2.0) mg/dL Ur Leukocyte Esterase Negative (Negative) Stool Occult Blood Negative (Negative) Disposition Clinical Impression: Colon perforation Disposition: ADMITTED IP TO THIS HOSP Condition: Good Is patient prescribed a controlled substance at d/c from ED?: No Referrals: Zaina Sanchez MD [Primary Care Provider] - 1-2 days Time of Disposition: 17:40 Decision Date: 10/24/24 Decision Time: 17:40
--- NOTE | 2024-10-24 16:39 | CT ---
EXAMINATION TYPE: CT abdomen pelvis w con DATE OF EXAM: 10/24/2024 4:25 PM COMPARISON: 06/16/2024 CLINICAL INDICATION: Male, 64 years old with history of Rectal pain; Rectal pain, Hx of rectal CA. TECHNIQUE: Axial CT abdomen pelvis w con;Sagittal and coronal reformats were created on a separate w orkstation. Contrast used:100 ml mL of Isovue 300 with IV Contrast, (none if empty) Oral contrast used: without Oral Contrast (none if empty) CT DLP: 1105.2 mGycm, Automated exposure control for dose reduction was used. FINDINGS: LOWER CHEST: Right lower lung 5 mm pulmonary nodule. ABDOMEN LIVER: Unremarkable GALLBLADDER AND BILE DUCTS: Unremarkable. PANCREAS: Unremarkable. SPLEEN: Unremarkable. ADRENAL GLANDS: Unremarkable. KIDNEYS AND URETERS: No evidence of hydronephrosis or renal calculus. The ureters are unremarkable. PELVIS BLADDER: Large amount air in the urinary bladder. No evidence for wall thickening or mass given limit ations of exam. REPRODUCTIVE: Unremarkable. ABDOMEN & PELVIS STOMACH AND BOWEL: No evidence of bowel obstruction. Extensive inflammation around the ascending colo n and cecum as described below which makes it difficult to discern the cecum and ascending colon from the fluid and inflammation. Right lower quadrant ostomy present. No evidence for obstruction. PERITONEUM/RETROPERITONEUM: No evidence for pneumoperitoneum there is loculated fluid collection exte nding on the right kidney down towards the pelvis. Drainage tube terminates posterior to the rectum. Fluid collections also extend up towards the left kidney. There is moderate bilateral hydronephrosis. The largest pocket of fluid posterior to the kidney measuring up to 9.5 x 6.9 x 3.8 cm. And on the l eft measuring up to 4.6 x 3.7 x 1.2 cm. More anteriorly to the right fluid collection is suspected large bowel series 202 image 39. There is extensive inflammation changes around the cecum and ascending colon which makes it difficult to diffe rentiate fluid from colon and this more anterior location. VASCULATURE: No evidence of aortic aneurysm. MUSCULOSKELETAL: No acute osseous abnormalities LYMPH NODES: No gross evidence for lymphadenopathy. SOFT TISSUE/ABDOMINAL WALL: Small fat-containing umbilical hernia. IMPRESSION: 1. Loculated fluid collection in the right retroperitoneum extends down towards the pelvis slightly. Fluid collection extends around the ascending colon and cecum with extensive phlegmonous change whic h makes it difficult to discern: From fluid more anteriorly. The left-sided fluid collection has a fl at morphology. Correlate for perforated ascending colon/cecum. 2. Drainage catheter terminates posterior to the rectum. 3. Large amount air in the urinary bladder correlate with recent instrumentation. 4. Bilateral [id number] hydronephrosis likely from inflammation throughout the abdomen. [facility], , 10/24/2024 4:37 PM
[2024-10-24] MEDS: metroNIDAZOLE-NS PMX 500 MG in SALINE 1 100ML.BAG IVPB SCH (18:06)
[2024-10-24] MEDS ORDERED: NALOXONE 0.4 MG/ML 1 ML VIAL IV PRN (18:12)
[2024-10-24] MEDS: SODIUM CHLORIDE 0.9% 1,000 ML IV SCH (18:40)
[2024-10-24] MEDS: LEVOFLOXACIN 750MG-D5W PMX 750 MG in DEXTROSE/WATER 1 150ML.BAG IVPB SCH (20:34)
[2024-10-25] MEDS ORDERED: ACETAMINOPHEN TAB 325 MG TAB PO PRN (08:03)
--- NOTE | 2024-10-25 08:04 | P.HPIM ---
History of Present Illness This is a pleasant 67 years old male with past medical history of rectal neoplasm. Status post colectomy and right colostomy. Also has a drain in his right buttock for his history of pelvic abscess. Presents because of rectal pain which was gradually getting worse over the last 1 week. Patient denies nausea vomiting but he has runny bowel movement through the colostomy which is was on and off. No chest pain or dyspnea. No urinary complaint. No headache dizziness weakness or numbness He is afebrile and vitals are stable Unremarkable CBC, BMP, liver enzymes. Urine analysis is negative FOBT is negative C. difficile is negative CT of the abdomen and pelvis with contrast showing right retroperitoneal abscess or fluid collection around the ascending colon and cecum with extensive phlegmonous changes suspicious for perforated ascending colon. Also there is air in the urinary bladder and mild to moderate bilateral hydron ephrosis Review of Systems CONSTITUTIONAL: No fever, no malaise, no fatigue. HEENT: No recent visual problems or hearing problems. Denied any sore throat. CARDIOVASCULAR: No orthopnea, PND, no palpitations, no syncope. PULMONARY: No shortness of breath, no cough, no hemoptysis. GASTROINTESTINAL: no nausea, no vomiting, Normoactive bowel sounds. NEUROLOGICAL: No headaches, no weakness, no numbness. HEMATOLOGICAL: Denies any bleeding or petechiae. GENITOURINARY: Denies any burning micturition, frequency, or urgency. MUSCULOSKELETAL/RHEUMATOLOGICAL: Denies any joint pain, swelling, or any muscle pain. ENDOCRINE: Denies any polyuria or polydipsia. Past Medical History Past Medical History: Cancer, Hyperlipidemia, Hypertension Additional Past Medical History / Comment(s): rectal cancer History of Any Multi-Drug Resistant Organisms: None Reported Past Surgical History: Adenoidectomy, Orthopedic Surgery, Tonsillectomy Additional Past Surgical History / Comment(s): colorectomy, left leg surgery Past Anesthesia/Blood Transfusion Reactions: No Reported Reaction Past Psychological History: No Psychological Hx Reported Smoking Status: Former smoker, Never smoker Past Alcohol Use History: None Reported Past Drug Use History: None Reported Medications and Allergies Home Medications Medication Instructions Recorded Confirmed Type Acetaminophen Tab [Tylenol] 650 mg PO Q6H PRN 10/24/24 10/24/24 History Apixaban [Eliquis] 5 mg PO BID 10/24/24 10/24/24 History cefuroxime axetiL [Ceftin] 500 mg PO BID 10/24/24 10/24/24 History metroNIDAZOLE [Flagyl] 500 mg PO BID 10/24/24 10/24/24 History oxyCODONE HCL [OxyIR] 5 mg PO Q6H PRN 10/24/24 10/24/24 History Allergies Allergy/AdvReac Type Severity Reaction Status Date / Time Penicillins Allergy Dyspnea & Verified 10/24/24 18:12 Rash Physical Exam Vitals: Vital Signs Temp Pulse Pulse Resp BP BP Pulse Ox 10/25/24 01:41 98.1 F 88 16 113/67 96 10/24/24 20:00 98.2 F 87 16 121/66 98 10/24/24 18:07 88 18 124/74 100 10/24/24 16:50 18 106/71 98 10/24/24 14:22 97.7 F 115 H 18 117/73 98 Intake and Output 10/24/24 10/25/24 10/25/24 22:59 06:59 14:59 Output Total 100 Balance -100 Output: Stool 100 Other: Voiding Method Urinal GENERAL: The patient is alert and oriented x3, not in any acute distress. Well developed, well nourished. HEENT: Pupils are round and equally reacting to light. EOMI. No scleral icterus. No conjunctival pallor. Normocephalic, atraumatic. No pharyngeal erythema. No thyromegaly. CARDIOVASCULAR: S1 and S2 present. No murmurs, rubs, or gallops. PULMONARY: Chest is clear to auscultation, no wheezing , no crackles. -ABDOMEN: Soft, nontender, nondistended, normoactive bowel sounds. No palpable organomegaly. Right lower quadrant colostomy with loose brown stool. No blood. Right buttock drain is in place with little discharge MUSCULOSKELETAL: No joint swelling or deformity. EXTREMITIES: No cyanosis, clubbing, or pedal edema. NEUROLOGICAL: Gross neurological examination did not reveal any focal deficits. SKIN: No rashes. no petechiae. Results CBC & Chem 7: 10/24/24 15:40 10/24/24 15:40 Labs: Abnormal Lab Results - Last 24 Hours (Table) 10/24/24 10/24/24 Range/Units 15:40 15:40 WBC 14.5 H (3.8-10.6) k/uL RBC 3.26 L (4.30-5.90) m/uL Hgb 9.8 L (13.0-17.5) gm/dL Hct 29.9 L (39.0-53.0) % Neutrophils # 12.9 H (1.3-7.7) k/uL Lymphocytes # 0.7 L (1.0-4.8) k/uL Sodium 132 L (137-145) mmol/L Carbon Dioxide 21 L (22-30) mmol/L BUN 25 H (9-20) mg/dL Total Protein 6.2 L (6.3-8.2) g/dL Albumin 3.3 L (3.5-5.0) g/dL Assessment and Plan Assessment: -History of rectal cancer status post colectomy and colostomy. CT of the abdomen and pelvis with contrast showing right retroperitoneal abscess or fluid collection around the ascending colon and cecum with extensive phlegmonous changes suspicious for perforated ascending colon. -Air in the urinary bladder and bilateral nephrosis, mild to moderate. Most likely secondary to above -Hypertension -Hyperlipidemia -normochromic, normocytic anemia -History of DVT, left leg in May and later on right leg on Eliquis at home Plan: Continue with antibiotics Levaquin and Flagyl Follow-up blood culture Continue with IV fluid General Surgery consult Oncology team consult Labs and medication were reviewed.. Continue same treatment. Continue with symptomatic treatment. Resume home medication. Monitor labs and vitals. DVT and GI prophylaxis. Further recommendations as per clinical course of the patient DVT prophylaxis: Eliquis switch to subcutaneous Lovenox in case he needs surgery GI Prophylaxis: Pepcid Prognosis is guarded
[2024-10-25] MEDS: HYDROmorphone 0.5 MG/0.5 ML SYRINGE IVP PRN (08:07)
[2024-10-25] MEDS ORDERED: HEPARIN SODIUM,PORCINE 5,000 UNIT/ML 1 ML VIAL SQ SCH (09:00)
[2024-10-25] MEDS: ENOXAPARIN 80 MG/0.8 ML SYRINGE SQ SCH (10:39)
[2024-10-25] MEDS: FAMOTIDINE 20 MG/2 ML VIAL IV SCH (10:39)
--- NOTE | 2024-10-25 11:32 | P.GSCN ---
History of Present Illness Consult date: 10/25/24 History of present illness: Patient is a 64-year-old male with a complicated past surgical history of rectal cancer status post sigmoidectomy in November 2023 with subsequent low anterior resection with diverting ileostomy creation in September 2024 with complicated postoperative course resulting in ileus as well as intraperitoneal abscess status post percutaneous abscess drainage with catheter placement. Patient states that he was admitted to [facility] from the beginning of September postoperatively after his LAR till October 05. He states that for the past 2 to 3 days he has had worsening rectal pain resulting in his presentation to [facility]. He states that his ostomy has been productive with gas and stool. Denies any nausea or vomiting. No fevers or chills. No shortness of breath or chest pain. He states that he has had mucus discharge per anus, but denies any purulence or bleeding. He states he been able to tolerate a diet without issue. Upon presentation to [facility] emergency department a CAT scan was obtained which showed evidence of bilateral retroperitoneal fluid collection posterior to the kidney with right side measuring 9 x 6 x 3 in the left side measuring 4 x 2 x 1 concerning for potential ascending colonic perforation. Cross-sectional imaging obtained shows evidence of the drainage tube within the pelvis. Posterior to the rectum. General Surgery is consulted for further evaluation. Review of Systems Negative except for as stated above in HPI Past Medical History Past Medical History: Cancer, Hyperlipidemia, Hypertension Additional Past Medical History / Comment(s): rectal cancer History of Any Multi-Drug Resistant Organisms: None Reported Past Surgical History: Adenoidectomy, Orthopedic Surgery, Tonsillectomy Additional Past Surgical History / Comment(s): colorectomy, left leg surgery Past Anesthesia/Blood Transfusion Reactions: No Reported Reaction Past Psychological History: No Psychological Hx Reported Smoking Status: Former smoker, Never smoker Past Alcohol Use History: None Reported Past Drug Use History: None Reported Medications and Allergies Home Medications Medication Instructions Recorded Confirmed Type Acetaminophen Tab [Tylenol] 650 mg PO Q6H PRN 10/24/24 10/24/24 History Apixaban [Eliquis] 5 mg PO BID 10/24/24 10/24/24 History cefuroxime axetiL [Ceftin] 500 mg PO BID 10/24/24 10/24/24 History metroNIDAZOLE [Flagyl] 500 mg PO BID 10/24/24 10/24/24 History oxyCODONE HCL [OxyIR] 5 mg PO Q6H PRN 10/24/24 10/24/24 History Allergies Allergy/AdvReac Type Severity Reaction Status Date / Time Penicillins Allergy Dyspnea & Verified 10/24/24 18:12 Rash Surgical - Exam Vital Signs Temp Pulse Resp BP Pulse Ox 97.7 F 115 H 18 117/73 98 10/24/24 14:22 10/24/24 14:22 10/24/24 14:22 10/24/24 14:22 10/24/24 14:22 Gen: AxO, NAD Pulm: non-labored respirations Abd: soft, mildly tender in right lower quadrant. Mildly distended. No guarding/rebound/rigidity Ostomy: pink and patent, gas and liquid stool seen in ostomy bag. Flank: No echymosis seen. non-tender to palpation IR drain: purulent drainage seen in bag. No erythema around drain insertion site Rectal: normal tone, no masses palpated Non-tender to CAMI. No flucutence or erythema seen Extrem: no edema seen Results - Labs 10/24/24 15:40 10/24/24 15:40 Abnormal Lab Results - Last 24 Hours (Table) 10/24/24 10/24/24 Range/Units 15:40 15:40 WBC 14.5 H (3.8-10.6) k/uL RBC 3.26 L (4.30-5.90) m/uL Hgb 9.8 L (13.0-17.5) gm/dL Hct 29.9 L (39.0-53.0) % Neutrophils # 12.9 H (1.3-7.7) k/uL Lymphocytes # 0.7 L (1.0-4.8) k/uL Sodium 132 L (137-145) mmol/L Carbon Dioxide 21 L (22-30) mmol/L BUN 25 H (9-20) mg/dL Total Protein 6.2 L (6.3-8.2) g/dL Albumin 3.3 L (3.5-5.0) g/dL Diabetes panel 10/24/24 Range/Units 15:40 Sodium 132 L (137-145) mmol/L Potassium 5.0 (3.5-5.1) mmol/L Chloride 103 (98-107) mmol/L Carbon Dioxide 21 L (22-30) mmol/L BUN 25 H (9-20) mg/dL Creatinine 0.96 (0.66-1.25) mg/dL Glucose 94 (74-99) mg/dL Calcium 9.6 (8.4-10.2) mg/dL AST 19 (17-59) U/L ALT 16 (4-49) U/L Alkaline Phosphatase 105 (38-126) U/L Total Protein 6.2 L (6.3-8.2) g/dL Albumin 3.3 L (3.5-5.0) g/dL Calcium panel 10/24/24 Range/Units 15:40 Calcium 9.6 (8.4-10.2) mg/dL Albumin 3.3 L (3.5-5.0) g/dL Pituitary panel 10/24/24 Range/Units 15:40 Sodium 132 L (137-145) mmol/L Potassium 5.0 (3.5-5.1) mmol/L Chloride 103 (98-107) mmol/L Carbon Dioxide 21 L (22-30) mmol/L BUN 25 H (9-20) mg/dL Creatinine 0.96 (0.66-1.25) mg/dL Glucose 94 (74-99) mg/dL Calcium 9.6 (8.4-10.2) mg/dL Adrenal panel 10/24/24 Range/Units 15:40 Sodium 132 L (137-145) mmol/L Potassium 5.0 (3.5-5.1) mmol/L Chloride 103 (98-107) mmol/L Carbon Dioxide 21 L (22-30) mmol/L BUN 25 H (9-20) mg/dL Creatinine 0.96 (0.66-1.25) mg/dL Glucose 94 (74-99) mg/dL Calcium 9.6 (8.4-10.2) mg/dL Total Bilirubin 0.2 (0.2-1.3) mg/dL AST 19 (17-59) U/L ALT 16 (4-49) U/L Alkaline Phosphatase 105 (38-126) U/L Total Protein 6.2 L (6.3-8.2) g/dL Albumin 3.3 L (3.5-5.0) g/dL Assessment and Plan Assessment: Patient is a 64-year-old male with a recent history of low anterior resection with diverting ileostomy complicated by ileus and intraperitoneal abscess status post IR drainage in September 2024 who presents with rectal pain and cross- sectional imaging findings of retroperitoneal fluid collection right side greater than left side concerning for potential ascending colon perforation. Plan: -Patient nonperitoneal at at time of examination with stable hemodynamics. No current plan for emergent exploratory laparotomy -Patient counseled that intraperitoneal fluid collection as well as retroperitoneal fluid collection seen is likely related to his index low anterior resection. Patient counseled that given his current hemodynamic stability and lack of peritonitis percutaneous aspiration of the fluid collection would be a viable option as it is less invasive than operative intervention. Patient counseled that if hemodynamic instability develops, peritonitis develops or if drainage appears not amendable to percutaneous aspiration patient may need operative intervention for drainage of the fluid/purulence seen Patient counseled that fluid seen is likely related to his recent-low anterior resection rather than a ascending colon perforation, as no free intraperitoneal air is seen -Keep patient n.p.o. for now -IV fluid hydration -IV antibiotic therapy -As needed pain and nausea control -DVT/GI prophylaxis -IR consultation for percutaneous aspiration of retroperitoneal fluid Bhavik Bowser M.D. General Surgery
--- NOTE | 2024-10-25 13:53 | P.CONS ---
History of Present Illness - Reason for Consult Consult date: 10/25/24 Stage IIIB adenocarcinoma of the rectum - Chief Complaint Rectal Pain - History of Present Illness Mr. Zaldivar is a 64-year-old gentleman with stage IIIB adenocarcinoma of the rectum who underwent total neoadjuvant treatment with Xeloda/radiation therapy followed by 6 cycles of neoadjuvant FOLFOX completed in July 2024 with subsequent surgical resection at [facility] by Dr. Blackewll presenting with increased rectal pain. He had surgical resection in mid September at [facility] and had a prolonged 21-day hospital course that was complicated by intra-abdominal abscess requiring percutaneous drain as well as DVT. As the rectal pain became more progressive, he presented to [facility] for additional management. He denied any abdominal pain, nausea, vomiting, fevers, or chills. On presentation, he was hemodynamically stable and afebrile saturating well on room air. CMP revealed no acute metabolic abnormalities with CBC noting WBC 14.5 (ANC 12.9), hemoglobin 9.8 (MCV 91.6), platelets 399. Stool occult blood and C. difficile PCR were both negative. Urinalysis revealed no evidence of infection. CT abdomen/pelvis with contrast on 10/24/2024 noted loculated fluid in the right retroperitoneum extending toward the pelvis with fluid collection around the ascending colon and cecum with extensive phlegmonous change. There was noted to be a left-sided fluid collection with a flat morphology potentially concerning for perforated ascending colon/cecum. In addition, there was bilateral mild to moderate hydronephrosis likely secondary to inflammation throughout the abdomen. He was started on IV levofloxacin and Flagyl and admitted for additional management with general surgery consulted. He was on Eliquis prior to admission and was instead placed on therapeutic Lovenox 80 mg every 12 hours. Review of Systems 14 point review of systems was conducted with pertinent positives and negatives as noted per HPI Past Medical History Past Medical History: Cancer, Hyperlipidemia, Hypertension Additional Past Medical History / Comment(s): rectal cancer History of Any Multi-Drug Resistant Organisms: None Reported Past Surgical History: Adenoidectomy, Orthopedic Surgery, Tonsillectomy Additional Past Surgical History / Comment(s): colorectomy, left leg surgery Past Anesthesia/Blood Transfusion Reactions: No Reported Reaction Past Psychological History: No Psychological Hx Reported Smoking Status: Former smoker, Never smoker Past Alcohol Use History: None Reported Past Drug Use History: None Reported Medications and Allergies Home Medications Medication Instructions Recorded Confirmed Type Acetaminophen Tab [Tylenol] 650 mg PO Q6H PRN 10/24/24 10/24/24 History Apixaban [Eliquis] 5 mg PO BID 10/24/24 10/24/24 History cefuroxime axetiL [Ceftin] 500 mg PO BID 10/24/24 10/24/24 History metroNIDAZOLE [Flagyl] 500 mg PO BID 10/24/24 10/24/24 History oxyCODONE HCL [OxyIR] 5 mg PO Q6H PRN 10/24/24 10/24/24 History Allergies Allergy/AdvReac Type Severity Reaction Status Date / Time Penicillins Allergy Dyspnea & Verified 10/24/24 18:12 Rash Physical Exam Vitals: Vital Signs Temp Pulse Pulse Resp BP BP Pulse Ox 10/25/24 08:00 98.1 F 94 16 101/67 98 10/25/24 01:41 98.1 F 88 16 113/67 96 10/24/24 20:00 98.2 F 87 16 121/66 98 10/24/24 18:07 88 18 124/74 100 10/24/24 16:50 18 106/71 98 10/24/24 14:22 97.7 F 115 H 18 117/73 98 Intake and Output 10/24/24 10/25/24 10/25/24 22:59 06:59 14:59 Output Total 100 Balance -100 Output: Stool 100 Other: Voiding Method Urinal - Constitutional General appearance: cooperative, no acute distress - EENT Eyes: EOMI - Respiratory Respiratory: bilateral: CTA - Cardiovascular Rhythm: regular - Gastrointestinal Ostomy site is clean/dry/intact General gastrointestinal: no distended, soft, tenderness Localized gastrointestinal: tender: epigastric periumbilical - Integumentary Integumentary: pale, no rash - Neurologic Neurologic: CNII-XII intact - Psychiatric Psychiatric: A&O x's 3 Results CBC & Chem 7: 10/24/24 15:40 10/24/24 15:40 Labs: Abnormal Lab Results - Last 24 Hours (Table) 10/24/24 10/24/24 Range/Units 15:40 15:40 WBC 14.5 H (3.8-10.6) k/uL RBC 3.26 L (4.30-5.90) m/uL Hgb 9.8 L (13.0-17.5) gm/dL Hct 29.9 L (39.0-53.0) % Neutrophils # 12.9 H (1.3-7.7) k/uL Lymphocytes # 0.7 L (1.0-4.8) k/uL Sodium 132 L (137-145) mmol/L Carbon Dioxide 21 L (22-30) mmol/L BUN 25 H (9-20) mg/dL Total Protein 6.2 L (6.3-8.2) g/dL Albumin 3.3 L (3.5-5.0) g/dL Assessment and Plan (1) Colon perforation Current Visit: Yes Status: Acute Code(s): K63.1 - PERFORATION OF INTESTINE (NONTRAUMATIC) SNOMED Code(s): 12757187 (2) Adenocarcinoma of rectum, stage 3 Current Visit: Yes Status: Acute Code(s): C20 - MALIGNANT NEOPLASM OF RECTUM SNOMED Code(s): 129329808 (3) Normocytic anemia Current Visit: Yes Status: Acute Code(s): D64.9 - ANEMIA, UNSPECIFIED SNOMED Code(s): 261116118 (4) Neutrophilic leukocytosis Current Visit: Yes Status: Acute Code(s): D72.828 - OTHER ELEVATED WHITE BLOOD CELL COUNT SNOMED Code(s): 419672137 Plan: #Rectal pain, possible colon perforation -Presented with 1 week of rectal pain -CT imaging noted potential concern for phlegmonous change around the ascending colon/cecum with concern for possible perforation of the colon -He has been started on IV antibiotics with Flagyl/levofloxacin and is pending surgical consultation -Clinically, he does not appear to be in any distress -Agree with IV antibiotics and surgical consultation -Surgical team recommended percutaneous drainage of abscess near the ascending colon with possibility of surgical intervention if percutaneous drainage is not possible #Normocytic normochromic anemia -Likely anemia of inflammation secondary to recent surgery superimposed by infection requiring percutaneous drainage and antibiotics -Continue to monitor for now -If this progresses, anemia workup could be considered and patient #Neutrophilic leukocytosis -Likely secondary to infection -Treatment as above #Stage IIIB adenocarcinoma of the rectum -Underwent total neoadjuvant treatment with concurrent Xeloda/radiation followed by 6 cycles of neoadjuvant FOLFOX completed on 07/11/2024 -He was noted to have partial response on repeat colonoscopy in July 2024 -He underwent lower anterior resection with colostomy at [facility] with Dr. Jourdan henry in mid September 2024 that was complicated by intra-abdominal abscess and DVT -From a medical oncology perspective, no acute interventions are required -He will require surveillance on an outpatient basis Melissa Woodruff MD
--- NOTE | 2024-10-25 14:07 | CT ---
EXAMINATION TYPE: CT guided abscess drainage DATE OF EXAM: 10/25/2024 COMPARISON: 10/24/2024 CLINICAL INDICATION: Male, 64 years old with history of see IR consult.; abscess drainage CT DLP: 1308 mGycm The procedure is discussed with the patient, the risks, complications, benefits and alternatives, wer e discussed and any questions were answered. Informed consent was obtained. The patient is placed p taty on the CT table, prepped and draped in the usual sterile fashion. Utilizing a 21-gauge needle access into the retroperitoneal fluid collection surrounding the right ki dney was achieved. There is conversion to an 0.035 system, serial dilation 8 Finnish and placement of an 8 Finnish drainage catheter within the requested fluid collection. Samples obtained and sent to [facility] for analysis. Pathology pending. All elements of maximal barrier and sterile technique were u tilized. The patient remained stable throughout the procedure with no immediate postprocedural compl ication. IMPRESSION: 1. Successful CT guided right retroperitoneal fluid collection\abscess drainage catheter insertion. [facility], , 10/25/2024 2:04 PM
[2024-10-26 09:27] LABS: Basophils # (A) 0.04 X 10*3/uL (0.00-0.10); Basophils % (A) 0.3 %; Eosinophils # (A) 0.05 X 10*3/uL (0.04-0.35); Eosinophils % (A) 0.4 %; HCT 29.6 % (39.6-50.0); HGB 9.1 g/dL (13.0-17.0); Lymphocytes # (A) 0.52 X 10*3/uL (0.90-5.00); Lymphocytes % (A) 3.7 %; MCH 28.6 pg (27.0-32.0); MCHC 30.7 g/dL (32.0-37.0); MCV 93.1 FL (80.0-97.0); Mean Platelet Volume 9.4 FL (9.5-12.2); Monocytes # (A) 0.86 X 10*3/uL (0.20-1.00); Monocytes % (A) 6.2 %; NRBC Per 100 WBC 0 X 10*3/uL (0.00-0.01); Neutrophils # (A) 12.16 X 10*3/uL (1.80-7.70); Platelet Count 386 X 10*3/uL (140-440); RBC 3.18 X 10*6/uL (4.40-5.60); RDW 14.9 % (11.5-14.5); WBC 13.97 X 10*3/uL (4.50-10.00)
--- NOTE | 2024-10-26 11:02 | P.PN ---
Subjective Progress Note Date: 10/26/24 No acute events overnight. Patient underwent CT-guided drainage of retroperitoneal abscess without complication. No further fevers or chills. No worsening abdominal pain. Endorses tolerating diet without issue. Admits to ostomy output with stool and gas. Ambulatory and voiding Objective - Vital Signs Vital signs: Vital Signs Temp 97.6 F 10/26/24 08:00 Pulse 98 10/26/24 08:00 Resp 17 10/26/24 08:00 BP 114/64 10/26/24 08:00 Pulse Ox 97 10/26/24 08:00 FiO2 Intake & Output 10/25/24 10/26/24 10/26/24 18:59 06:59 18:59 Output Total 140 215 Balance -140 -215 Weight 88.451 kg Output: Drainage 40 15 right back #1 10 right back #2 40 5 Stool 100 200 Other: Voiding Method Urinal Urinal # Voids 2 3 - Exam Gen: AxO, NAD Pulm: non-labored respirations Abd: soft, non-tender, non-distended. No guarding/rebound/rigidity Ostomy: pink and patent, stool and gas seen in applience Extrem: no edema seen IR drain: C/D/I x2. Purulent drainage seen in both drains - Labs CBC & Chem 7: 10/26/24 04:26 10/24/24 15:40 Labs: Abnormal Lab Results - Last 24 Hours (Table) 10/26/24 Range/Units 04:26 WBC 13.97 H (4.50-10.00) X 10*3/uL RBC 3.18 L (4.40-5.60) X 10*6/uL Hgb 9.1 L (13.0-17.0) g/dL Hct 29.6 L (39.6-50.0) % MCHC 30.7 L (32.0-37.0) g/dL RDW 14.9 H (11.5-14.5) % MPV 9.4 L (9.5-12.2) FL Immature Gran # 0.34 H (0.00-0.04) X 10*3/uL Neutrophils # 12.16 H (1.80-7.70) X 10*3/uL Lymphocytes # 0.52 L (0.90-5.00) X 10*3/uL Microbiology - Last 24 Hours (Table) 10/25/24 13:00 Gram Stain - Preliminary Peritoneal Fluid 10/24/24 17:45 Blood Culture - Preliminary Blood Assessment and Plan Assessment: Patient is a 64-year-old male with a recent history of low anterior resection with diverting ileostomy complicated by ileus and intraperitoneal abscess status post IR drainage in September 2024 who presents with rectal pain and cross- sectional imaging findings of retroperitoneal fluid collection right side greater than left side concerning for potential ascending colon perforation. Now s/p second IR drain placement of fluid collection Plan: Diet as tolerated -IV fluid hydration -IV antibiotic therapy -As needed pain and nausea control -DVT/GI prophylaxis -Patient will likely require IV abx on DC recommend ID consult -No acute surgical intervention Bhavik Bowser M.D. General Surgery
--- NOTE | 2024-10-26 11:26 | P.PN ---
Subjective This is a pleasant 67 years old male with past medical history of rectal neoplasm. Status post colectomy and right colostomy. Also has a drain in his right buttock for his history of pelvic abscess. Presents because of rectal pain which was gradually getting worse over the last 1 week. Patient denies nausea vomiting but he has runny bowel movement through the colostomy which is was on and off. No chest pain or dyspnea. No urinary complaint. No headache dizziness weakness or numbness He is afebrile and vitals are stable Unremarkable CBC, BMP, liver enzymes. Urine analysis is negative FOBT is negative C. difficile is negative CT of the abdomen and pelvis with contrast showing right retroperitoneal abscess or fluid collection around the ascending colon and cecum with extensive phlegmonous changes suspicious for perforated ascending colon. Also there is air in the urinary bladder and mild to moderate bilateral hydronephrosis 10/26 Patient awake alert looks comfortable No abdominal pain or tenderness, no vomiting. No diarrhea through his colostomy bag. His rectal pain looks better today Patient planned for CT-guided drainage of retroperitoneal abscess by IR team. Today postprocedure day #1 Remains on Levaquin and Flagyl Objective - Vital Signs Vital signs: Vital Signs Temp 97.6 F 10/26/24 08:00 Pulse 98 10/26/24 08:00 Resp 17 10/26/24 08:00 BP 114/64 10/26/24 08:00 Pulse Ox 97 10/26/24 08:00 FiO2 Intake & Output 10/25/24 10/26/24 10/26/24 18:59 06:59 18:59 Output Total 140 215 Balance -140 -215 Weight 88.451 kg Output: Drainage 40 15 right back #1 10 right back #2 40 5 Stool 100 200 Other: Voiding Method Urinal Urinal # Voids 2 3 - Labs CBC & Chem 7: 10/26/24 04:26 10/24/24 15:40 Labs: Abnormal Lab Results - Last 24 Hours (Table) 10/26/24 Range/Units 04:26 WBC 13.97 H (4.50-10.00) X 10*3/uL RBC 3.18 L (4.40-5.60) X 10*6/uL Hgb 9.1 L (13.0-17.0) g/dL Hct 29.6 L (39.6-50.0) % MCHC 30.7 L (32.0-37.0) g/dL RDW 14.9 H (11.5-14.5) % MPV 9.4 L (9.5-12.2) FL Immature Gran # 0.34 H (0.00-0.04) X 10*3/uL Neutrophils # 12.16 H (1.80-7.70) X 10*3/uL Lymphocytes # 0.52 L (0.90-5.00) X 10*3/uL Microbiology - Last 24 Hours (Table) 10/25/24 13:00 Gram Stain - Preliminary Peritoneal Fluid 10/24/24 17:45 Blood Culture - Preliminary Blood Assessment and Plan Assessment: -History of rectal cancer status post colectomy and colostomy. CT of the abdomen and pelvis with contrast showing right retroperitoneal abscess or fluid collection around the ascending colon and cecum with extensive phlegmonous changes suspicious for perforated ascending colon. CT-guided drainage of retroperitoneal abscess by IR team 10/25 -Air in the urinary bladder and bilateral nephrosis, mild to moderate. Most likely secondary to above -Hypertension -Hyperlipidemia -normochromic, normocytic anemia -History of DVT, left leg in May and later on right leg on Eliquis at home Plan: Continue with antibiotics Levaquin and Flagyl Follow-up blood culture Follow-up wound culture results Continue with IV fluid General Surgery consult Oncology team consult Labs and medication were reviewed.. Continue same treatment. Continue with symptomatic treatment. Resume home medication. Monitor labs and vitals. DVT and GI prophylaxis. Further recommendations as per clinical course of the patient DVT prophylaxis: Eliquis switch to subcutaneous Lovenox in case he needs surgery GI Prophylaxis: Pepcid Prognosis is guarded
[2024-10-26 12:13] LABS: BUN/Creat Ratio 18.78 Ratio (12.00-20.00); Blood Urea Nitrogen 16.9 mg/dL (9.0-27.0); Calcium 9.1 mg/dL (8.7-10.3); Carbon Dioxide 19.9 mmol/L (21.6-31.8); Chloride 103 mmol/L (96-109); Glucose 91 mg/dL (70-110); Potassium 4.4 mmol/L (3.5-5.5); Sodium 135 mmol/L (135-145)
[2024-10-27 09:20] LABS: Basophils % (A) 0 %; Eosinophils # (A) 0.1 k/uL (0-0.7); Eosinophils % (A) 1 %; HCT 29.8 % (39.0-53.0); HGB 9.6 gm/dL (13.0-17.5); Lymphocytes # (A) 0.4 k/uL (1.0-4.8); Lymphocytes % (A) 4 %; MCH 29.3 pg (25.0-35.0); MCHC 32.2 g/dL (31.0-37.0); MCV 90.9 fL (80.0-100.0); Mean Platelet Volume 8.1; Monocytes # (A) 0.4 k/uL (0-1.0); Monocytes % (A) 4 %; Neutrophils # (A) 9.4 k/uL (1.3-7.7); Neutrophils % (A) 91 %; Platelet Count 352 k/uL (150-450); RBC 3.28 m/uL (4.30-5.90); WBC 10.3 k/uL (3.8-10.6)
[2024-10-27 09:27] LABS: African American GFR (CKD) >90 (>60 ml/min/1.73 sqM); Anion Gap 7 mmol/L; Blood Urea Nitrogen 15 mg/dL (9-20); Calcium 9.4 mg/dL (8.4-10.2); Carbon Dioxide 23 mmol/L (22-30); Chloride 105 mmol/L (98-107); Glucose 122 mg/dL (74-99); Non-African American GFR(CKD) >90 (>60 ml/min/1.73 sqM); Potassium 3.8 mmol/L (3.5-5.1); Sodium 135 mmol/L (137-145)
--- NOTE | 2024-10-27 12:47 | P.PN ---
Subjective This is a pleasant 67 years old male with past medical history of rectal neoplasm. Status post colectomy and right colostomy. Also has a drain in his right buttock for his history of pelvic abscess. Presents because of rectal pain which was gradually getting worse over the last 1 week. Patient denies nausea vomiting but he has runny bowel movement through the colostomy which is was on and off. No chest pain or dyspnea. No urinary complaint. No headache dizziness weakness or numbness He is afebrile and vitals are stable Unremarkable CBC, BMP, liver enzymes. Urine analysis is negative FOBT is negative C. difficile is negative CT of the abdomen and pelvis with contrast showing right retroperitoneal abscess or fluid collection around the ascending colon and cecum with extensive phlegmonous changes suspicious for perforated ascending colon. Also there is air in the urinary bladder and mild to moderate bilateral hydronephrosis 10/26 Patient awake alert looks comfortable No abdominal pain or tenderness, no vomiting. No diarrhea through his colostomy bag. His rectal pain looks better today Patient planned for CT-guided drainage of retroperitoneal abscess by IR team. Today postprocedure day #1 Remains on Levaquin and Flagyl 10/27 Patient reports improvement, his rectal pain is minimal. No other new complaint. Colostomy bag in place with no significant diarrhea Patient s/p drain of his retroperitoneal abscess, cultures growing E. coli as pulmonary results pending final results. No chest pain or dyspnea Patient remains on Levaquin and Flagyl and normal saline 75 mL/h Objective - Vital Signs Vital signs: Vital Signs Temp 97.5 F L 10/27/24 07:41 Pulse 97 10/27/24 07:41 Resp 17 10/27/24 07:41 BP 119/73 10/27/24 07:41 Pulse Ox 97 10/27/24 07:41 FiO2 Intake & Output 10/26/24 10/27/24 10/27/24 18:59 06:59 18:59 Intake Total 370 Output Total 240 200 Balance 370 -240 -200 Intake: Oral 370 Output: Drainage 240 right back #1 220 right back #2 20 Stool 200 Other: Voiding Method Toilet Toilet # Voids 4 2 - Exam GENERAL: The patient is alert and oriented x3, not in any acute distress. Well developed, well nourished. HEENT: Pupils are round and equally reacting to light. EOMI. No scleral icterus. No conjunctival pallor. Normocephalic, atraumatic. No pharyngeal erythema. No thyromegaly. CARDIOVASCULAR: S1 and S2 present. No murmurs, rubs, or gallops. PULMONARY: Chest is clear to auscultation, no wheezing , no crackles. -ABDOMEN: Soft, nontender, nondistended, normoactive bowel sounds. No palpable organomegaly. Right lower quadrant colostomy with loose brown stool. No blood. Right buttock drain is in place with little discharge MUSCULOSKELETAL: No joint swelling or deformity. EXTREMITIES: No cyanosis, clubbing, or pedal edema. NEUROLOGICAL: Gross neurological examination did not reveal any focal deficits. SKIN: No rashes. no petechiae. - Labs CBC & Chem 7: 10/27/24 08:52 10/27/24 08:52 Labs: Abnormal Lab Results - Last 24 Hours (Table) 10/27/24 10/27/24 Range/Units 08:52 08:52 RBC 3.28 L (4.30-5.90) m/uL Hgb 9.6 L (13.0-17.5) gm/dL Hct 29.8 L (39.0-53.0) % Neutrophils # 9.4 H (1.3-7.7) k/uL Lymphocytes # 0.4 L (1.0-4.8) k/uL Sodium 135 L (137-145) mmol/L Glucose 122 H (74-99) mg/dL Microbiology - Last 24 Hours (Table) 10/24/24 17:05 Stool Culture - Preliminary Stool 10/24/24 17:45 Blood Culture - Preliminary Blood 10/25/24 13:00 Gram Stain - Preliminary Peritoneal Fluid Body Fluid Culture - Preliminary Escherichia coli Assessment and Plan Assessment: -History of rectal cancer status post colectomy and colostomy. CT of the abdomen and pelvis with contrast showing right retroperitoneal abscess or fluid collection around the ascending colon and cecum with extensive phlegmonous changes suspicious for perforated ascending colon. CT-guided drainage of retroperitoneal abscess by IR team 10/25 -Air in the urinary bladder and bilateral nephrosis, mild to moderate. Most likely secondary to above -Hypertension -Hyperlipidemia -normochromic, normocytic anemia -History of DVT, left leg in May and later on right leg on Eliquis at home Plan: Continue with antibiotics Levaquin and Flagyl Follow-up blood culture Follow-up wound culture results Continue with IV fluid General Surgery consult Oncology team consult Labs and medication were reviewed.. Continue same treatment. Continue with symptomatic treatment. Resume home medication. Monitor labs and vitals. DVT and GI prophylaxis. Further recommendations as per clinical course of the patient DVT prophylaxis: Eliquis switch to subcutaneous Lovenox in case he needs surgery GI Prophylaxis: Pepcid Prognosis is guarded
--- NOTE | 2024-10-27 13:26 | P.PN ---
Subjective Progress Note Date: 10/27/24 SURGICAL PROGRESS NOTE CHIEF COMPLAINT: Retroperitoneal abscess HISTORY OF PRESENT ILLNESS: Patient is status post IR CT-guided drain for retroperitoneal abscess. Patient with 70 mL purulent fluid from the drain. Patient reports improvement in his overall abdominal pain after placement of drain. He does complain of some rectal pain. He has had some stool discharge from the rectum. Ostomy functioning. Afebrile. WBC is down from 13.9-10.3 PHYSICAL EXAM: VITAL SIGNS: Reviewed. GENERAL: Well-developed in no acute distress. ABDOMEN: Soft. Nondistended. Nontender. Patient has [address] with purulent drainage NEUROLOGIC: Alert and oriented. Cranial nerves II through XII grossly intact. ASSESSMENT: 1. Retroperitoneal fluid collection right greater than left status post drain placement by IR service 2. History of rectal cancer with recent lower anterior resection with diverting ileostomy complicated by ileus and intraperitoneal abscess status post IR drain in September 2024 PLAN: -Continue drains -Continue IV antibiotics -Consult infectious disease for antibiotic recommendations, may need IV antibiotics Physician Artist Consultant note has been reviewed by physician. Signing provider agrees with the documented findings, assessment, and plan of care. I have personally seen and examined the patient, reviewed the [employer] T[employer]WING MACHINE /PAs history, exam and MDM and agree with the assessment and plan as written. Based on total visit time, I have performed more than 50% of the visit. As above: Patient with recent robotic low anterior resection for low-lying rectal cancer. Appears the patient had a anastomotic leak as there is a drain present in the deep pelvis already present on admission. CAT scan here shows fluid collection along the right gutter. Drain was placed here by interv entional radiology with purulent output. Patient states he feels much better. White blood cell count is improved. Currently afebrile. Continue drain x 2. Continue broad-spectrum antibiotics. No surgical intervention planned currently. Case discussed with both patient at length and also his [place] by phone. I did encourage them to still follow-up with his colorectal surgeon as outpatient once released from here. They seem to be agreeable with that plan. Apparently they had difficulties with the surgeon that was covering for his colorectal surgeon while hospitalized at [facility]. Objective - Vital Signs Vital signs: Vital Signs Temp 97.5 F L 10/27/24 07:41 Pulse 97 10/27/24 07:41 Resp 17 10/27/24 07:41 BP 119/73 10/27/24 07:41 Pulse Ox 97 10/27/24 07:41 FiO2 Intake & Output 10/26/24 10/27/24 10/27/24 18:59 06:59 18:59 Intake Total 370 Output Total 240 200 Balance 370 -240 -200 Intake: Oral 370 Output: Drainage 240 right back #1 220 right back #2 20 Stool 200 Other: Voiding Method Toilet Toilet # Voids 4 2 - Labs CBC & Chem 7: 10/27/24 08:52 10/27/24 08:52 Labs: Abnormal Lab Results - Last 24 Hours (Table) 10/27/24 10/27/24 Range/Units 08:52 08:52 RBC 3.28 L (4.30-5.90) m/uL Hgb 9.6 L (13.0-17.5) gm/dL Hct 29.8 L (39.0-53.0) % Neutrophils # 9.4 H (1.3-7.7) k/uL Lymphocytes # 0.4 L (1.0-4.8) k/uL Sodium 135 L (137-145) mmol/L Glucose 122 H (74-99) mg/dL Microbiology - Last 24 Hours (Table) 10/24/24 17:05 Stool Culture - Preliminary Stool 10/24/24 17:45 Blood Culture - Preliminary Blood 10/25/24 13:00 Gram Stain - Preliminary Peritoneal Fluid Body Fluid Culture - Preliminary Escherichia coli
[2024-10-27 14:12] VITALS: BMI 30.5
--- NOTE | 2024-10-27 20:02 | P.PN ---
Subjective Progress Note Date: 10/27/24 Principal diagnosis: ABd pain, confusion. rectal carcinoma In f/u today pt reports feeling much better! He is tolerating oral intake, ostomy is functioning, no recent fevers, no N,V, abd or back pain. reports mentation is back to normal. Objective - Vital Signs Vital signs: Vital Signs Temp 97.5 F L 10/27/24 07:41 Pulse 97 10/27/24 07:41 Resp 17 10/27/24 07:41 BP 119/73 10/27/24 07:41 Pulse Ox 97 10/27/24 07:41 FiO2 Intake & Output 10/26/24 10/27/24 10/27/24 18:59 06:59 18:59 Intake Total 370 Output Total 240 200 Balance 370 -240 -200 Intake: Oral 370 Output: Drainage 240 right back #1 220 right back #2 20 Stool 200 Other: Voiding Method Toilet Toilet # Voids 4 2 - Constitutional General appearance: Present: average body habitus, cooperative, no acute distress - EENT Eyes: Present: anicteric sclerae, EOMI ENT: Present: hearing grossly normal, normal oropharynx - Respiratory Respiratory: bilateral: CTA - Cardiovascular Rhythm: regular Heart sounds: normal: S1, S2 Abnormal Heart Sounds: Absent: systolic murmur, diastolic murmur, rub, S3 Gallop, S4 Gallop, click, other - Peripheral edema leg Peripheral Edema: bilateral: None - Gastrointestinal Gastrointestinal Comment(s): Ostomy with brown, mostly liquid, some semi solid material. 2 MARIO drains-one mid back, second at iliac crest, both on right side, segundo fluid in drains. General gastrointestinal: Present: normal bowel sounds, soft. Absent: absent bowel sounds, decreased bowel sounds, distended, hepatomegaly, hyperactive bowel sounds, organomegaly, rigid, scaphoid, splenomegaly, tenderness, umbilical hernia, ventral hernia - Integumentary Integumentary: Present: normal - Neurologic Neurologic: Present: CNII-XII intact - Musculoskeletal Musculoskeletal: Present: strength equal bilaterally - Psychiatric Psychiatric: Present: A&O x's 3, appropriate affect, intact judgment & insight - Labs CBC & Chem 7: 10/27/24 08:52 10/27/24 08:52 Labs: Abnormal Lab Results - Last 24 Hours (Table) 10/26/24 10/27/24 10/27/24 Range/Units 04:26 08:52 08:52 RBC 3.28 L (4.30-5.90) m/uL Hgb 9.6 L (13.0-17.5) gm/dL Hct 29.8 L (39.0-53.0) % Neutrophils # 9.4 H (1.3-7.7) k/uL Lymphocytes # 0.4 L (1.0-4.8) k/uL Sodium 135 L (137-145) mmol/L Carbon Dioxide 19.9 L (21.6-31.8) mmol/L Anion Gap 12.10 H (4.00-12.00) mmol/L Glucose 122 H (74-99) mg/dL Microbiology - Last 24 Hours (Table) 10/24/24 17:05 Stool Culture - Preliminary Stool 10/24/24 17:45 Blood Culture - Preliminary Blood 10/25/24 13:00 Gram Stain - Preliminary Peritoneal Fluid Body Fluid Culture - Preliminary Escherichia coli Assessment and Plan (1) Abscess Current Visit: Yes Status: Acute Priority: High Code(s): L02.91 - CUTANEOUS ABSCESS, UNSPECIFIED SNOMED Code(s): 629936968 (2) Adenocarcinoma of rectum, stage 3 Current Visit: Yes Status: Acute Code(s): C20 - MALIGNANT NEOPLASM OF RECTUM SNOMED Code(s): 999502862 (3) Neutrophilic leukocytosis Current Visit: Yes Status: Acute Priority: Low Code(s): D72.828 - OTHER ELEVATED WHITE BLOOD CELL COUNT SNOMED Code(s): 916677429 Plan: Rretroperitoneal abscess -S/P drainge, MARIO drain placement x 2, cont on abx. Pt doing much better today -Defer mgmt to Surgery and ID Normocytic normochromic anemia -Likely anemia of inflammation secondary to recent surgery superimposed by infection requiring percutaneous drainage and antibiotics -Hgb stable today at 9.6 Neutrophilic leukocytosis -2/2 infection -WBC high normal today, improved Stage IIIB adenocarcinoma of the rectum -Underwent total neoadjuvant treatment with concurrent Xeloda/radiation followed by 6 cycles of neoadjuvant FOLFOX completed on 07/11/2024, partial response on repeat colonoscopy in July 2024. Underwent lower anterior resection with colostomy at [facility] with Dr. Blackwell in mid September 2024 that was complicated by intra-abdominal abscess and DVT. -Nothing acutely from a Medical Oncology standpoint. Surveillance planned outpatient Doctor attests: I performed a history and physical examination of this patient, developed impression and plan of care. Discussed with dictator. I agree with dictators note, documented as a scribe.
--- NOTE | 2024-10-27 23:36 | P.CONS ---
History of Present Illness - Reason for Consult Consult date: 10/27/24 Intra-abdominal abscess Requesting physician: Sommer Diaz - Chief Complaint Rectal pain and pressure x few days - History of Present Illness Patient is a 64-year-old male with a past medical history significant for rectal cancer completed chemo and radiation in July 2024 subsequently patient did have a sigmoidectomy followed by low anterior resection with diverting ileostomy in September 2024 that was done at [facility] clinical course complicated by development of intraperitoneal abscess status post percutaneous drainage patient will discharge from the hospital on October 05, 2024 on a 2-week course of oral Ceftin and Flagyl this subsequently has been extended by his ID physician and the patient was still taking those antibiotic however the patient started having increasing pain to the rectal area describing it to be pressure intensity almost 10 out of 10 without any radiation did have some nausea but no vomiting and denies having any high-grade fever with the symptoms the patient presented to hospital 3 days ago on arrival to the ER the patient was afebrile and no fever have been recorded subsequently patient was not tachycardic hypotensive or hypoxic patient did have a white count of 14.5 on admission that is down to 10.3 creatinine 0.87 electrolytes has been normal UA has been negative patient did have abdominal pelvis CT done on the and it shows loculated fluid collection in the right retroperitoneum extending towards the pelvis patient is status post CT-guided drainage of this abscess on 10/25/2024 patient has been treated with Levaquin and Flagyl because of his penicillin allergy infectious disease was consulted today for further management of antibiotics Review of Systems Positive point and negatives has been mentioned in the HPI, complete review of systems was performed and all other systems are negative Past Medical History Past Medical History: Cancer, Deep Vein Thrombosis (DVT), Prostate Disorder Additional Past Medical History / Comment(s): rectal cancer completed chemo and radiation in 07/26 History of Any Multi-Drug Resistant Organisms: None Reported Past Surgical History: Adenoidectomy, Orthopedic Surgery, Tonsillectomy Additional Past Surgical History / Comment(s): colorectomy/in 09/25/complicated by abscess with drainage tube and DVT, left leg surgery/metal plate Past Anesthesia/Blood Transfusion Reactions: No Reported Reaction Past Psychological History: No Psychological Hx Reported Smoking Status: Former smoker Past Alcohol Use History: None Reported Past Drug Use History: None Reported Medications and Allergies Home Medications Medication Instructions Recorded Confirmed Type Acetaminophen Tab [Tylenol] 650 mg PO Q6H PRN 10/24/24 10/24/24 History Apixaban [Eliquis] 5 mg PO BID 10/24/24 10/24/24 History cefuroxime axetiL [Ceftin] 500 mg PO BID 10/24/24 10/24/24 History metroNIDAZOLE [Flagyl] 500 mg PO BID 10/24/24 10/24/24 History oxyCODONE HCL [OxyIR] 5 mg PO Q6H PRN 10/24/24 10/24/24 History Tamsulosin [Flomax] 0.8 mg PO DAILY 10/25/24 10/25/24 History Allergies Allergy/AdvReac Type Severity Reaction Status Date / Time Penicillins Allergy Dyspnea & Verified 10/24/24 18:12 Rash Physical Exam Vitals: Vital Signs Temp Pulse Pulse Pulse Resp BP Pulse Ox 10/27/24 07:41 97.5 F L 97 17 119/73 97 10/27/24 07:40 96 100 97 17 10/27/24 01:33 98.0 F 80 17 115/70 98 10/26/24 19:47 98.2 F 89 17 117/70 98 Intake and Output 10/26/24 10/27/24 10/27/24 22:59 06:59 14:59 Intake Total 250 Output Total 150 90 200 Balance 100 -90 -200 Intake: Oral 250 Output: Drainage 150 90 right back #1 150 70 right back #2 20 Stool 200 Other: Voiding Method Toilet Toilet # Voids 4 2 GENERAL DESCRIPTION: Elderly male lying in bed, no distress. No tachypnea or accessory muscle of respiration use. HEENT: Shows Pallor , no scleral icterus. Oral mucous membrane is dry. No pharyngeal erythema or thrush NECK: Trachea central, no thyromegaly. LUNGS: Unlabored breathing. Clear to auscultation anteriorly. No wheeze or crackle. HEART: S1, S2, regular rate and rhythm. No loud murmur ABDOMEN: Soft, no tenderness patient did have 2 drainage catheter one of them is draining some purulent material EXTREMITIES: No edema of feet. SKIN: No rash, no masses palpable. NEUROLOGICAL: The patient is awake, alert, oriented x3, mood and affect normal. Results CBC & Chem 7: 10/27/24 08:52 12/26/24 08:52 Labs: Abnormal Lab Results - Last 24 Hours (Table) 10/27/24 10/27/24 Range/Units 08:52 08:52 RBC 3.28 L (4.30-5.90) m/uL Hgb 9.6 L (13.0-17.5) gm/dL Hct 29.8 L (39.0-53.0) % Neutrophils # 9.4 H (1.3-7.7) k/uL Lymphocytes # 0.4 L (1.0-4.8) k/uL Sodium 135 L (137-145) mmol/L Glucose 122 H (74-99) mg/dL Microbiology - Last 24 Hours (Table) 10/24/24 17:05 Stool Culture - Preliminary Stool 10/24/24 17:45 Blood Culture - Preliminary Blood 10/25/24 13:00 Gram Stain - Preliminary Peritoneal Fluid Body Fluid Culture - Preliminary Escherichia coli Assessment and Plan (1) Intra-abdominal abscess Current Visit: Yes Status: Acute Code(s): K65.1 - PERITONEAL ABSCESS SNOMED Code(s): 57209163 (2) Penicillin allergy Current Visit: Yes Status: Acute Code(s): Z88.0 - ALLERGY STATUS TO PENICILLIN SNOMED Code(s): 56427924 (3) Failure of outpatient treatment Current Visit: Yes Status: Acute Code(s): Z78.9 - OTHER SPECIFIED HEALTH STATUS SNOMED Code(s): 950296473 Plan: 1patient with a complicated history in this patient with rectal cancer status post sigmoidectomy followed by low anterior resection end ileostomy in September 2024 at [facility] subsequent developing intra-abdominal abscess that has been drained CT-guided and sent home on oral Ceftin and Flagyl now with readmission to the hospital with worsening pain and CT has been suggestive of retroperitoneal abscess status post CT-guided drainage of the cultures pending, patient has failed oral antibiotic therapy 2-patient with a penicillin allergy that will limit the number of antibiotics safe to use 3-discontinue Augmentin 4-start the patient on Rocephin 2 g daily continue with Flagyl and the patient may need to have antibiotic on discharge as he has been outpatient oral Ceftin and Flagyl with discharge antibiotic on the basis of final culture Multiple question concern answered We will follow on clinical condition and cultures to further adjust medication if needed Thank you for this consultation we will follow the patient along with you Dictation was produced using imgfave dictation software. please excuse any grammatical, word or spelling errors. Time with Patient: Greater than 30
[2024-10-28 11:40] LABS: Glucose,Whole Blood 124 mg/dL (70-110)
--- NOTE | 2024-10-28 11:44 | P.PN ---
Subjective This is a pleasant 67 years old male with past medical history of rectal neoplasm. Status post colectomy and right colostomy. Also has a drain in his right buttock for his history of pelvic abscess. Presents because of rectal pain which was gradually getting worse over the last 1 week. Patient denies nausea vomiting but he has runny bowel movement through the colostomy which is was on and off. No chest pain or dyspnea. No urinary complaint. No headache dizziness weakness or numbness He is afebrile and vitals are stable Unremarkable CBC, BMP, liver enzymes. Urine analysis is negative FOBT is negative C. difficile is negative CT of the abdomen and pelvis with contrast showing right retroperitoneal abscess or fluid collection around the ascending colon and cecum with extensive phlegmonous changes suspicious for perforated ascending colon. Also there is air in the urinary bladder and mild to moderate bilateral hydronephrosis 10/26 Patient awake alert looks comfortable No abdominal pain or tenderness, no vomiting. No diarrhea through his colostomy bag. His rectal pain looks better today Patient planned for CT-guided drainage of retroperitoneal abscess by IR team. Today postprocedure day #1 Remains on Levaquin and Flagyl 10/27 Patient reports improvement, his rectal pain is minimal. No other new complaint. Colostomy bag in place with no significant diarrhea Patient s/p drain of his retroperitoneal abscess, cultures growing E. coli as pulmonary results pending final results. No chest pain or dyspnea Patient remains on Levaquin and Flagyl and normal saline 75 mL/h 10/28 Patient was seen walking in the hallway, gait is normal. He has some abdominal pain 02/09 today, drain is in place Culture growing gram-negative bacilli and Gram stain showing E. coli with septic constellatus. This pulmonary results Patient remains on broad-spectrum antibiotics per ID team with Le ceftriaxone and Flagyl Continue normal sinus 75 mL/h Objective - Vital Signs Vital signs: Vital Signs Temp 97.3 F L 10/28/24 08:00 Pulse 87 10/28/24 08:00 Resp 18 10/28/24 08:00 BP 120/79 10/28/24 08:00 Pulse Ox 97 10/28/24 08:00 FiO2 Intake & Output 10/27/24 10/28/24 10/28/24 18:59 06:59 18:59 Intake Total 540 Output Total 200 200 Balance -200 540 -200 Weight 88.451 kg Intake: Oral 540 Output: Stool 200 200 Other: Voiding Method Toilet Toilet Toilet # Voids 3 3 - Exam GENERAL: The patient is alert and oriented x3, not in any acute distress. Well developed, well nourished. HEENT: Pupils are round and equally reacting to light. EOMI. No scleral icterus. No conjunctival pallor. Normocephalic, atraumatic. No pharyngeal erythema. No thyromegaly. CARDIOVASCULAR: S1 and S2 present. No murmurs, rubs, or gallops. PULMONARY: Chest is clear to auscultation, no wheezing , no crackles. -ABDOMEN: Soft, nontender, nondistended, normoactive bowel sounds. No palpable organomegaly. Right lower quadrant colostomy with loose brown stool. No blood. Right buttock drain is in place with little discharge MUSCULOSKELETAL: No joint swelling or deformity. EXTREMITIES: No cyanosis, clubbing, or pedal edema. NEUROLOGICAL: Gross neurological examination did not reveal any focal deficits. SKIN: No rashes. no petechiae. - Labs CBC & Chem 7: 10/27/24 08:52 10/27/24 08:52 Labs: Abnormal Lab Results - Last 24 Hours (Table) 10/28/24 Range/Units 11:38 POC Glucose (mg/dL) 124 H (70-110) mg/dL Microbiology - Last 24 Hours (Table) 10/24/24 17:05 Stool Culture - Final Stool 10/24/24 17:45 Blood Culture - Preliminary Blood 10/25/24 13:00 Anaerobic Culture - Preliminary Peritoneal Fluid Anaerobic Gm Negative Bacilli 10/25/24 13:00 Gram Stain - Preliminary Peritoneal Fluid Body Fluid Culture - Preliminary Escherichia coli Streptococcus constellatus Assessment and Plan Assessment: -History of rectal cancer status post colectomy and colostomy. CT of the abdomen and pelvis with contrast showing right retroperitoneal abscess or fluid collection around the ascending colon and cecum with extensive phlegmonous changes suspicious for perforated ascending colon. CT-guided drainage of retroperitoneal abscess by IR team 10/25 -Air in the urinary bladder and bilateral nephrosis, mild to moderate. Most likely secondary to above -Hypertension -Hyperlipidemia -normochromic, normocytic anemia -History of DVT, left leg in May and later on right leg on Eliquis at home Plan: Continue with antibiotics Levaquin and Flagyl Follow-up blood culture Follow-up wound culture results Continue with IV fluid General Surgery consult Oncology team consult Labs and medication were reviewed.. Continue same treatment. Continue with symptomatic treatment. Resume home medication. Monitor labs and vitals. DVT and GI prophylaxis. Further recommendations as per clinical course of the patient DVT prophylaxis: Eliquis switch to subcutaneous Lovenox in case he needs surgery GI Prophylaxis: Pepcid Prognosis is guarded
--- NOTE | 2024-10-28 11:49 | P.PN ---
Subjective Progress Note Date: 10/28/24 SURGICAL PROGRESS NOTE CHIEF COMPLAINT: Retroperitoneal abscess HISTORY OF PRESENT ILLNESS: Patient is status post IR CT-guided drain for retroperitoneal abscess. Patient complaining of pain across the lower abdomen. Ostomy still functioning. Patient does have purulent output in the drains. The output is decreasing that is coming out of the drains. Afebrile. Final culture results pending. CBC for today pending PHYSICAL EXAM: VITAL SIGNS: Reviewed. GENERAL: Well-developed in no acute distress. ABDOMEN: Soft. Nondistended. Nontender. Patient has [address] with purulent drainage NEUROLOGIC: Alert and oriented. Cranial nerves II through XII grossly intact. ASSESSMENT: 1. Retroperitoneal fluid collection right greater than left status post drain placement by IR service 2. History of rectal cancer with recent lower anterior resection with diverting ileostomy complicated by ileus and intraperitoneal abscess status post IR drain in September 2024 PLAN: -No surgical intervention planned -Continue 2 drains -Continue IV antibiotics per ID service -Encourage patient to increase activity level -Patient to follow-up with his colorectal surgeon as outpatient after discharge -GI prophylaxis Pepcid and DVT prophylaxis Lovenox Physician It Business Analyst note has been reviewed by physician. Signing provider agrees with the documented findings, assessment, and plan of care. I have personally seen and examined the patient, reviewed the STREETS AND BUILDINGS DECORATOR /PAs history, exam and MDM and agree with the assessment and plan as written. Based on total visit time, I have performed more than 50% of the visit. As above: Patient was having some increased pain this morning compared to yesterday evening however it is better now. Still having ostomy output. Drains are still purulent although output seems to have decree significantly. He is afebrile. White blood cell count was normal yesterday. Continue drains for now. Will monitor output. May be able to remove the perianastomotic drain that was placed earlier this month if no further output. Continue antibiotics. Apparently family spoke with their colorectal surgeon and plans are for outpatient follow-up at their office. Objective - Vital Signs Vital signs: Vital Signs Temp 97.3 F L 10/28/24 08:00 Pulse 87 10/28/24 08:00 Resp 18 10/28/24 08:00 BP 120/79 10/28/24 08:00 Pulse Ox 97 10/28/24 08:00 FiO2 Intake & Output 10/27/24 10/28/24 10/28/24 18:59 06:59 18:59 Intake Total 540 Output Total 200 200 Balance -200 540 -200 Weight 88.451 kg Intake: Oral 540 Output: Stool 200 200 Other: Voiding Method Toilet Toilet Toilet # Voids 3 3 - Labs CBC & Chem 7: 10/27/24 08:52 10/27/24 08:52 Labs: Abnormal Lab Results - Last 24 Hours (Table) 10/28/24 Range/Units 11:38 POC Glucose (mg/dL) 124 H (70-110) mg/dL Microbiology - Last 24 Hours (Table) 10/24/24 17:05 Stool Culture - Final Stool 10/24/24 17:45 Blood Culture - Preliminary Blood 10/25/24 13:00 Anaerobic Culture - Preliminary Peritoneal Fluid Anaerobic Gm Negative Bacilli 10/25/24 13:00 Gram Stain - Preliminary Peritoneal Fluid Body Fluid Culture - Preliminary Escherichia coli Streptococcus constellatus
[2024-10-28 12:07] LABS: Basophils # (A) 0.1 k/uL (0-0.2); Basophils % (A) 0 %; Eosinophils # (A) 0.1 k/uL (0-0.7); Eosinophils % (A) 1 %; HCT 33.2 % (39.0-53.0); HGB 10.5 gm/dL (13.0-17.5); Hypochromasia Slight; Lymphocytes # (A) 0.7 k/uL (1.0-4.8); Lymphocytes % (A) 5 %; MCHC 31.5 g/dL (31.0-37.0); MCV 92.1 fL (80.0-100.0); Mean Platelet Volume 6.9; Monocytes # (A) 0.6 k/uL (0-1.0); Monocytes % (A) 5 %; Neutrophils % (A) 89 %; Platelet Count 449 k/uL (150-450); RBC 3.61 m/uL (4.30-5.90); RDW 14.8 % (11.5-15.5); WBC 13.5 k/uL (3.8-10.6)
[2024-10-28] MEDS: MELATONIN 3 MG TABLET PO PRN (23:20)
[2024-10-29 09:11] LABS: Basophils # (A) 0.05 X 10*3/uL (0.00-0.10); Basophils % (A) 0.4 %; Eosinophils # (A) 0.08 X 10*3/uL (0.04-0.35); Eosinophils % (A) 0.6 %; HCT 28.2 % (39.6-50.0); HGB 8.8 g/dL (13.0-17.0); Lymphocytes # (A) 0.67 X 10*3/uL (0.90-5.00); MCH 28.9 pg (27.0-32.0); MCHC 31.2 g/dL (32.0-37.0); MCV 92.5 FL (80.0-97.0); Mean Platelet Volume 9.6 FL (9.5-12.2); Monocytes % (A) 6.8 %; NRBC Per 100 WBC 0 X 10*3/uL (0.00-0.01); Neutrophils # (A) 11.29 X 10*3/uL (1.80-7.70); Neutrophils % (A) 84.6 %; Platelet Count 335 X 10*3/uL (140-440); RBC 3.05 X 10*6/uL (4.40-5.60); RDW 15.2 % (11.5-14.5); WBC 13.33 X 10*3/uL (4.50-10.00)
[2024-10-29 10:17] LABS: BUN/Creat Ratio 20.86 Ratio (12.00-20.00); Blood Urea Nitrogen 14.6 mg/dL (9.0-27.0); Calcium 8.9 mg/dL (8.7-10.3); Carbon Dioxide 20.5 mmol/L (21.6-31.8); Chloride 105 mmol/L (96-109); Glucose 95 mg/dL (70-110); Potassium 4.2 mmol/L (3.5-5.5); Sodium 136 mmol/L (135-145)
--- NOTE | 2024-10-29 11:55 | P.PN ---
Subjective Progress Note Date: 10/29/24 Principal diagnosis: Abdominal abscess Patient doing well today. He has been walking in the hallways. Sitting up in the chair currently. White blood cell count 13.3. He is afebrile. Both drains seem to put out about 20 cc of purulent fluid in the last 24 hours or so. Poke with nursing staff will drain this morning. Objective - Vital Signs Vital signs: Vital Signs Temp 98.5 F 10/29/24 07:20 Pulse 90 10/29/24 07:20 Resp 16 10/29/24 07:20 BP 125/64 10/29/24 07:20 Pulse Ox 97 10/29/24 07:20 FiO2 Intake & Output 10/28/24 10/29/24 10/29/24 18:59 06:59 18:59 Output Total 200 Balance -200 Output: Stool 200 Other: Voiding Method Toilet Toilet # Voids 2 2 - Exam Abdomen: Soft, nondistended, mild right lower quadrant tenderness - Labs CBC & Chem 7: 10/29/24 03:35 10/29/24 03:35 Labs: Abnormal Lab Results - Last 24 Hours (Table) 10/28/24 10/29/24 10/29/24 Range/Units 11:39 03:35 03:35 WBC 13.5 H 13.33 H (3.8-10.6) k/uL RBC 3.61 L 3.05 L (4.30-5.90) m/uL Hgb 10.5 L 8.8 L (13.0-17.5) gm/dL Hct 33.2 L 28.2 L (39.0-53.0) % MCHC 31.2 L (32.0-37.0) g/dL RDW 15.2 H (11.5-14.5) % Immature Gran # 0.34 H (0.00-0.04) X 10*3/uL Neutrophils # 12.0 H 11.29 H (1.3-7.7) k/uL Lymphocytes # 0.7 L 0.67 L (1.0-4.8) k/uL Carbon Dioxide 20.5 L (21.6-31.8) mmol/L BUN/Creatinine Ratio 20.86 H (12.00-20.00) Ratio Microbiology - Last 24 Hours (Table) 10/25/24 13:00 Gram Stain - Final Peritoneal Fluid Body Fluid Culture - Final Escherichia coli Streptococcus constellatus 10/24/24 17:05 Stool Culture - Final Stool Assessment and Plan (1) Abscess Narrative/Plan: Patient doing better gradually. Keep both drains in place for now. Continue antibiotics. Agree with plans for CAT scan either tomorrow or Thursday. Possible home with IV antibiotics following that with outpatient follow-up with his colorectal surgeon after that. Anticipate patient being discharged with both drains in place since there is still with some purulent fluid present. Current Visit: Yes Status: Acute Priority: High Code(s): L02.91 - CUTANEOUS ABSCESS, UNSPECIFIED SNOMED Code(s): 558744484
--- NOTE | 2024-10-29 14:56 | P.PN ---
Subjective Progress Note Date: 10/28/24 Principal diagnosis: Reason for follow-up is intra-abdominal abscess Patient is a 64-year-old male with a past medical history significant for rectal cancer completed chemo and radiation in July 2024 subsequently patient did have a sigmoidectomy followed by low anterior resection with diverting ileostomy in September 2024 that was done at [facility] clinical course complicated by development of intraperitoneal abscess status post percutaneous drainage patient was discharged on oral Ceftin and Flagyl with readmission to this facility concerning for rectal pressure has been diagnosed with retroperitoneal abscess did have a CT-guided drainage of the abscess culture now growing E. coli strep and anaerobe. On today's evaluation that is 10/28/2024, the patient continues to be afebrile, the patient is on room air and breathing comfortably, the Pt denies having any chest pain or cough, the patient did have some right-sided abdominal pain nausea but no vomiting did have output in his colostomy Patient white count is slightly up to 13.5 today creatinine 0.87 Objective - Vital Signs Vital signs: Vital Signs Temp 97.7 F 10/28/24 14:57 Pulse 103 H 10/28/24 14:57 Resp 18 10/28/24 14:57 BP 108/73 10/28/24 14:57 Pulse Ox 97 10/28/24 14:57 FiO2 Intake & Output 10/27/24 10/28/24 10/28/24 18:59 06:59 18:59 Intake Total 540 Output Total 200 200 Balance -200 540 -200 Weight 88.451 kg Intake: Oral 540 Output: Stool 200 200 Other: Voiding Method Toilet Toilet Toilet # Voids 3 3 - Exam GENERAL DESCRIPTION: An elderly male lying in bed in no distress RESPIRATORY SYSTEM: Unlabored breathing , decreased breath sounds at bases HEART: S1 S2 regular rate and rhythm , ABDOMEN: Soft , no tenderness EXTREMITIES: No edema feet - Labs CBC & Chem 7: 10/29/24 03:35 10/29/24 03:35 Labs: Abnormal Lab Results - Last 24 Hours (Table) 10/28/24 10/28/24 Range/Units 11:38 11:39 WBC 13.5 H (3.8-10.6) k/uL RBC 3.61 L (4.30-5.90) m/uL Hgb 10.5 L (13.0-17.5) gm/dL Hct 33.2 L (39.0-53.0) % Neutrophils # 12.0 H (1.3-7.7) k/uL Lymphocytes # 0.7 L (1.0-4.8) k/uL POC Glucose (mg/dL) 124 H (70-110) mg/dL Microbiology - Last 24 Hours (Table) 10/24/24 17:05 Stool Culture - Final Stool 10/24/24 17:45 Blood Culture - Preliminary Blood 10/25/24 13:00 Anaerobic Culture - Preliminary Peritoneal Fluid Anaerobic Gm Negative Bacilli 10/25/24 13:00 Gram Stain - Preliminary Peritoneal Fluid Body Fluid Culture - Preliminary Escherichia coli Streptococcus constellatus Assessment and Plan (1) Intra-abdominal abscess Current Visit: Yes Status: Acute Code(s): K65.1 - PERITONEAL ABSCESS SNOMED Code(s): 08285980 (2) Penicillin allergy Current Visit: Yes Status: Acute Code(s): Z88.0 - ALLERGY STATUS TO PENICILLIN SNOMED Code(s): 63220270 (3) Failure of outpatient treatment Current Visit: Yes Status: Acute Code(s): Z78.9 - OTHER SPECIFIED HEALTH STATUS SNOMED Code(s): 036452054 Plan: 1patient with a complicated history in this patient with rectal cancer status post sigmoidectomy followed by low anterior resection end ileostomy in September 2024 at [facility] subsequent developing intra-abdominal abscess that has been drained CT-guided and sent home on oral Ceftin and Flagyl now with readmission to the hospital with worsening pain and CT has been suggestive of retroperitoneal abscess status post CT-guided drainage of the cultures pending, patient has failed oral antibiotic therapy 2-patient with a penicillin allergy that will limit the number of antibiotics safe to use 3-patient is afebrile white count slightly up today need to be monitored closely patient will be treated with Rocephin 2 g daily continue with Flagyl Family at the bedside, multiple question concern answered Dictation was produced using [employer] dictation software. please excuse any grammatical, word or spelling errors. Time with Patient: Less than 30
--- NOTE | 2024-10-29 14:57 | P.PN ---
Subjective Progress Note Date: 10/29/24 Principal diagnosis: Reason for follow-up is intra-abdominal abscess Patient is a 64-year-old male with a past medical history significant for rectal cancer completed chemo and radiation in July 2024 subsequently patient did have a sigmoidectomy followed by low anterior resection with diverting ileostomy in September 2024 that was done at [facility] clinical course complicated by development of intraperitoneal abscess status post percutaneous drainage patient was discharged on oral Ceftin and Flagyl with readmission to this facility concerning for rectal pressure has been diagnosed with retroperitoneal abscess did have a CT-guided drainage of the abscess culture now growing E. coli strep and anaerobe. On today's evaluation that is 10/29/2024, patient did not have any fever and denies any chills, patient is breathing comfortably on room air, patient with no chest pain or cough patient abdominal pain and rectal pressure has decreased in intensity some nausea but no vomiting and did have output in the colostomy. Patient white count is 13.3, creatinine 0.7 Objective - Vital Signs Vital signs: Vital Signs Temp 97.5 F L 10/29/24 14:00 Pulse 90 10/29/24 14:00 Resp 16 10/29/24 14:00 BP 121/71 10/29/24 14:00 Pulse Ox 98 10/29/24 14:00 FiO2 Intake & Output 10/28/24 10/29/24 10/29/24 18:59 06:59 18:59 Output Total 200 60 Balance -200 -60 Output: Drainage 60 right back #1 30 right back #2 30 Stool 200 Other: Voiding Method Toilet Toilet # Voids 2 2 - Exam GENERAL DESCRIPTION: An elderly male lying in bed in no distress RESPIRATORY SYSTEM: Unlabored breathing , decreased breath sounds at bases HEART: S1 S2 regular rate and rhythm , ABDOMEN: Soft , no tenderness EXTREMITIES: No edema feet - Labs CBC & Chem 7: 10/29/24 03:35 10/29/24 03:35 Labs: Abnormal Lab Results - Last 24 Hours (Table) 10/29/24 10/29/24 Range/Units 03:35 03:35 WBC 13.33 H (4.50-10.00) X 10*3/uL RBC 3.05 L (4.40-5.60) X 10*6/uL Hgb 8.8 L (13.0-17.0) g/dL Hct 28.2 L (39.6-50.0) % MCHC 31.2 L (32.0-37.0) g/dL RDW 15.2 H (11.5-14.5) % Immature Gran # 0.34 H (0.00-0.04) X 10*3/uL Neutrophils # 11.29 H (1.80-7.70) X 10*3/uL Lymphocytes # 0.67 L (0.90-5.00) X 10*3/uL Carbon Dioxide 20.5 L (21.6-31.8) mmol/L BUN/Creatinine Ratio 20.86 H (12.00-20.00) Ratio Microbiology - Last 24 Hours (Table) 10/25/24 13:00 Gram Stain - Final Peritoneal Fluid Body Fluid Culture - Final Escherichia coli Streptococcus constellatus Assessment and Plan (1) Intra-abdominal abscess Current Visit: Yes Status: Acute Code(s): K65.1 - PERITONEAL ABSCESS SNOMED Code(s): 12134806 (2) Penicillin allergy Current Visit: Yes Status: Acute Code(s): Z88.0 - ALLERGY STATUS TO PENICILLIN SNOMED Code(s): 42173372 (3) Failure of outpatient treatment Current Visit: Yes Status: Acute Code(s): Z78.9 - OTHER SPECIFIED HEALTH STATUS SNOMED Code(s): 366250645 Plan: 1patient with a complicated history in this patient with rectal cancer status post sigmoidectomy followed by low anterior resection end ileostomy in September 2024 at [facility] subsequent developing intra-abdominal abscess that has been drained CT-guided and sent home on oral Ceftin and Flagyl now with readmission to the hospital with worsening pain and CT has been suggestive of retroperitoneal abscess status post CT-guided drainage culture did grow E. coli Streptococcus and anaerobes, patient has failed oral antibiotic therapy 2-patient with a penicillin allergy that will limit the number of antibiotics safe to use 3-patient is afebrile white count still slightly up but trending downward we will check a CT abdominal pelvis in the a.m. to be sure all improvement before making plans for outpatient antibiotics, for now continue with the Rocephin and Flagyl Family at the bedside, multiple question concern answered Dictation was produced using [employer] software. please excuse any grammatical, word or spelling errors. Time with Patient: Less than 30
--- NOTE | 2024-10-29 17:13 | P.PN ---
Subjective Progress Note Date: 10/29/24 Interval History: This is a pleasant 67 years old male with past medical history of rectal neoplasm. Status post colectomy and right colostomy. Also has a drain in his right buttock for his history of pelvic abscess. Presents because of rectal pain which was gradually getting worse over the last 1 week. Patient denies nausea vomiting but he has runny bowel movement through the colostomy which is was on and off. No chest pain or dyspnea. No urinary complaint. No headache dizziness weakness or numbness He is afebrile and vitals are stable Unremarkable CBC, BMP, liver enzymes. Urine analysis is negative FOBT is negative C. difficile is negative CT of the abdomen and pelvis with contrast showing right retroperitoneal abscess or fluid collection around the ascending colon and cecum with extensive phlegmonous changes suspicious for perforated ascending colon. Also there is air in the urinary bladder and mild to moderate bilateral hydronephrosis 10/26 Patient awake alert looks comfortable No abdominal pain or tenderness, no vomiting. No diarrhea through his colostomy bag. His rectal pain looks better today Patient planned for CT-guided drainage of retroperitoneal abscess by IR team. Today postprocedure day #1 Remains on Levaquin and Flagyl 10/27 Patient reports improvement, his rectal pain is minimal. No other new complaint. Colostomy bag in place with no significant diarrhea Patient s/p drain of his retroperitoneal abscess, cultures growing E. coli as pulmonary results pending final results. No chest pain or dyspnea Patient remains on Levaquin and Flagyl and normal saline 75 mL/h 10/28 Patient was seen walking in the hallway, gait is normal. He has some abdominal pain 02/09 today, drain is in place Culture growing gram-negative bacilli and Gram stain showing E. coli with septic constellatus. This pulmonary results Patient remains on broad-spectrum antibiotics per ID team with Le ceftriaxone and Flagyl Continue normal sinus 75 mL/h 10/29--patient was seen and examined today. Complains of abdominal pain around colostomy site. Both drain in place. Complained of leakage of colostomy site. General surgery following, recommended to continue antibiotics, plan for repeat CAT scan in 1 to 2 days, plan to discharge with pulm drain in place. Infectious disease following. Currently on Rocephin and Flagyl. Assessment and plan: --Intraperitoneal abscess: -History of rectal cancer status post colectomy and colostomy. CT of the abdomen and pelvis with contrast showing right retroperitoneal abscess or fluid collection around the ascending colon and cecum with extensive phlegmonous changes suspicious for perforated ascending colon. CT-guided drainage of retroperitoneal abscess by IR team 10/25 -Air in the urinary bladder and bilateral nephrosis, mild to moderate. Most likely secondary to above -Hypertension -Hyperlipidemia -normochromic, normocytic anemia -History of DVT, left leg in May and later on right leg on Eliquis at home Plan: Continue with antibiotics Rocephin and Flagyl.--- Follow-up blood culture Follow-up wound culture results Continue with IV fluid General Surgery consult Oncology team consult ID consult. Plan for repeat CT in 1 to 2 days. DVT prophylaxis: Subcutaneous Lovenox therapeutic dose, holding Eliquis. Monitor vital signs and labs Labs and medication were reviewed. Continue same treatment. Further recommendations as per clinical course of the patient PHYSICAL EXAMINATION: GENERAL: The patient is A&O x3, NAD HEENT: EOMI, Sclerae anicteric, Moist Mucous membranes Neck: Supple, Non tender, No JVD PULMONARY: Equal breath souds B/L, No wheezing, No crackles. CARDIOVASCULAR: S1, S2 present. No murmurs, rubs, or gallops. ABDOMEN: Mild tenderness around colostomy site. To drain in place. MUSCULOSKELETAL: No edema, No cyanosis. No clubbing. Normal ROM. Intact peripheral pulses. NEUROLOGICAL: CN 2-12 grossly intact. No FND Skin: No Rash REVIEW OF SYSTEMS: CONSTITUTIONAL: No fever or chills. CARDIOVASCULAR: No chest pain, palpitations or syncope. PULMONARY: No shortness of breath, no cough, sore throat. GASTROINTESTINAL: No nausea, vomiting, diarrhea, abdominal pain. : No Dysuria, urgency, frequency. Extremities: No edema. NEUROLOGICAL: No headaches, no weakness, or numbness Dictation was produced using [employer] dictation software. please excuse any grammatical, word or spelling errors. Objective - Vital Signs Vital signs: Vital Signs Temp 97.5 F L 10/29/24 14:00 Pulse 90 10/29/24 14:00 Resp 16 10/29/24 14:00 BP 121/71 10/29/24 14:00 Pulse Ox 98 10/29/24 14:00 FiO2 Intake & Output 10/28/24 10/29/24 10/29/24 18:59 06:59 18:59 Output Total 200 60 Balance -200 -60 Output: Drainage 60 right back #1 30 right back #2 30 Stool 200 Other: Voiding Method Toilet Toilet # Voids 2 2 - Labs CBC & Chem 7: 10/29/24 03:35 10/29/24 03:35 Labs: Abnormal Lab Results - Last 24 Hours (Table) 10/29/24 10/29/24 Range/Units 03:35 03:35 WBC 13.33 H (4.50-10.00) X 10*3/uL RBC 3.05 L (4.40-5.60) X 10*6/uL Hgb 8.8 L (13.0-17.0) g/dL Hct 28.2 L (39.6-50.0) % MCHC 31.2 L (32.0-37.0) g/dL RDW 15.2 H (11.5-14.5) % Immature Gran # 0.34 H (0.00-0.04) X 10*3/uL Neutrophils # 11.29 H (1.80-7.70) X 10*3/uL Lymphocytes # 0.67 L (0.90-5.00) X 10*3/uL Carbon Dioxide 20.5 L (21.6-31.8) mmol/L BUN/Creatinine Ratio 20.86 H (12.00-20.00) Ratio Microbiology - Last 24 Hours (Table) 10/25/24 13:00 Gram Stain - Final Peritoneal Fluid Body Fluid Culture - Final Escherichia coli Streptococcus constellatus
[2024-10-30] MEDS: IOPAMIDOL CONTRAST (ORAL USE) VIAL PO PRN (08:04)
[2024-10-30 09:46] LABS: HCT 27.9 % (39.6-50.0); HGB 8.3 g/dL (13.0-17.0); MCH 27.9 pg (27.0-32.0); MCHC 29.7 g/dL (32.0-37.0); MCV 93.6 FL (80.0-97.0); Mean Platelet Volume 9.6 FL (9.5-12.2); NRBC Per 100 WBC 0 X 10*3/uL (0.00-0.01); Platelet Count 335 X 10*3/uL (140-440); RBC 2.98 X 10*6/uL (4.40-5.60); RDW 15.4 % (11.5-14.5); WBC 12.96 X 10*3/uL (4.50-10.00)
[2024-10-30 10:01] LABS: BUN/Creat Ratio 18.57 Ratio (12.00-20.00); Carbon Dioxide 20.2 mmol/L (21.6-31.8); Chloride 107 mmol/L (96-109); Glucose 94 mg/dL (70-110); Sodium 138 mmol/L (135-145)
[2024-10-30 10:02] LABS: Calcium 8.8 mg/dL (8.7-10.3)
--- NOTE | 2024-10-30 10:40 | CT ---
EXAMINATION TYPE: CT abdomen pelvis w con DATE OF EXAM: 10/30/2024 10:20 AM COMPARISON: CT abdomen pelvis most recent from 10/24/2024 CLINICAL INDICATION: Male, 64 years old with history of Follow-up intra-abdominal abscess; ABD PAIN TECHNIQUE: Axial CT abdomen pelvis w con;Sagittal and coronal reformats were created on a separate w orkstation. Contrast used:100 mL of Isovue 300 with IV Contrast, (none if empty) Oral contrast used: with Oral Contrast (none if empty) CT DLP: 1233.8 mGycm, Automated exposure control for dose reduction was used. FINDINGS: LOWER CHEST: Right lower lung 5 mm pulmonary nodule. ABDOMEN LIVER: Unremarkable GALLBLADDER AND BILE DUCTS: Unremarkable. PANCREAS: Unremarkable. SPLEEN: Unremarkable. ADRENAL GLANDS: Unremarkable. KIDNEYS AND URETERS: No evidence of hydronephrosis or renal calculus. The ureters are unremarkable. PELVIS BLADDER: There remains a large amount air in the anterior bladder.. No evidence for wall thickening o r mass given limitations of exam. REPRODUCTIVE: Unremarkable. ABDOMEN & PELVIS STOMACH AND BOWEL: No evidence of bowel obstruction. Extensive inflammation around the ascending colo n and cecum as described below which makes it difficult to discern the cecum and ascending colon from the fluid and inflammation. Right lower quadrant ostomy present. No evidence for obstruction. PERITONEUM/RETROPERITONEUM: No evidence for pneumoperitoneum there is loculated fluid collection exte nding around the right kidney down towards the pelvis. Largest pocket posterior to the right kidney m easuring 87 x 82, previously 95 89 cm extending 13.5 cm previously 14.8 cm. New drainage tube catheter is located within this fluid collection with tip just inferior and posteri or to the right kidney. There remains fluid around the catheter. Drainage tube terminates posterior to the rectum. No significant fluid around the rectum. Fluid collections also extend up towards the left kidney. Similar flat like fluid collection posterio r and medial to left kidney. There is moderate bilateral hydronephrosis. More anteriorly to the right fluid collection is suspected large bowel. There is extensive inflammati on changes around the cecum and ascending colon which makes it difficult to differentiate fluid from colon and this more anterior location. VASCULATURE: No evidence of aortic aneurysm. MUSCULOSKELETAL: No acute osseous abnormalities LYMPH NODES: No gross evidence for lymphadenopathy. SOFT TISSUE/ABDOMINAL WALL: Small fat-containing umbilical hernia. IMPRESSION: 1. New drainage tube catheter is located within the right perirenal fluid collection. There remains a fluid collection present which is actually decreased in size from prior. Correlate for new cathete r malfunction. 2. Fluid collection still extends around the ascending colon and cecum with extensive phlegmonous ch avinash which makes it difficult to discern colon from phlegmonous change. Findings still suggest perfor ated ascending colon/cecum. 3. Similar left-sided fluid collection with a flat morphology. 4. There remains a Drainage catheter terminating posterior to the rectum. 5. Large amount air in the urinary bladder correlate with recent instrumentation. 6. Bilateral [id number] hydronephrosis likely from inflammation throughout the abdomen. [facility], , 10/30/2024 10:38 AM
[2024-10-30 11:23] LABS: Basophils # (A) 0.05 X 10*3/uL (0.00-0.10); Basophils % (A) 0.4 %; Eosinophils # (A) 0.09 X 10*3/uL (0.04-0.35); Eosinophils % (A) 0.7 %; Lymphocytes # (A) 0.59 X 10*3/uL (0.90-5.00); Lymphocytes % (A) 4.6 %; Monocytes # (A) 0.91 X 10*3/uL (0.20-1.00); Neutrophils % (A) 84.8 %; RBC Morphology Normal (Normal)
--- NOTE | 2024-10-30 12:03 | P.PN ---
Subjective Progress Note Date: 10/30/24 Principal diagnosis: Abdominal abscess Patient feels well today. Still some mild right lower quadrant pain. Has some pain when flexing right hip region. He has no fevers. No tachycardia. Repeat CAT scan today reviewed and shows persistent fluid collection in the right retro peritoneal region. Catheter seems to be in a good location but is not draining well. Objective - Vital Signs Vital signs: Vital Signs Temp 97.7 F 10/30/24 07:20 Pulse 92 10/30/24 07:20 Resp 18 10/30/24 07:20 BP 127/77 10/30/24 07:20 Pulse Ox 96 10/30/24 07:20 FiO2 Intake & Output 10/29/24 10/30/24 10/30/24 18:59 06:59 18:59 Output Total 60 Balance -60 Output: Drainage 60 right back #1 30 right back #2 30 Other: Voiding Method Toilet Toilet # Voids 4 1 - Exam Abdomen: Soft, mild right lower quadrant tenderness, no rebound or guarding, both catheters in place - Labs CBC & Chem 7: 10/30/24 02:58 10/30/24 02:58 Labs: Abnormal Lab Results - Last 24 Hours (Table) 10/30/24 10/30/24 Range/Units 02:58 02:58 WBC 12.96 H (4.50-10.00) X 10*3/uL RBC 2.98 L (4.40-5.60) X 10*6/uL Hgb 8.3 L (13.0-17.0) g/dL Hct 27.9 L (39.6-50.0) % MCHC 29.7 L (32.0-37.0) g/dL RDW 15.4 H (11.5-14.5) % Immature Gran # 0.32 H (0.00-0.04) X 10*3/uL Neutrophils # 11.00 H (1.80-7.70) X 10*3/uL Lymphocytes # 0.59 L (0.90-5.00) X 10*3/uL Carbon Dioxide 20.2 L (21.6-31.8) mmol/L Microbiology - Last 24 Hours (Table) 10/24/24 17:45 Blood Culture - Final Blood 10/25/24 13:00 Anaerobic Culture - Final Peritoneal Fluid Anaerobic Gm Negative Bacilli Assessment and Plan (1) Abscess Narrative/Plan: 64-year-old male with persistent right sided retroperitoneal abscess. Reviewed films with radiology. Certainly the films are worrisome that the infection could be coming from the right colon however I did provide the recent history of anastomotic leak at the colorectal anastomosis. This seems to be the most likely etiology for this ongoing retroperitoneal abscess collection. Unfortunately the catheter is in a good location but not draining well. Will have the catheter flushed today with sterile saline and reassessed by interventional radiology tomorrow. Continue antibiotics. Current Visit: Yes Status: Acute Priority: High Code(s): L02.91 - CUTANEOUS ABSCESS, UNSPECIFIED SNOMED Code(s): 536712893
--- NOTE | 2024-10-30 15:56 | P.PN ---
Subjective Progress Note Date: 10/30/24 Principal diagnosis: Reason for follow-up is intra-abdominal abscess Patient is a 64-year-old male with a past medical history significant for rectal cancer completed chemo and radiation in July 2024 subsequently patient did have a sigmoidectomy followed by low anterior resection with diverting ileostomy in September 2024 that was done at [facility] clinical course complicated by development of intraperitoneal abscess status post percutaneous drainage patient was discharged on oral Ceftin and Flagyl with readmission to this facility concerning for rectal pressure has been diagnosed with retroperitoneal abscess did have a CT-guided drainage of the abscess culture now growing E. coli strep and anaerobe. On today's evaluation that is 10/30/2024, Patient is afebrile patient is currently on room air and denies having any shortness of breath, the patient denies any chest pain or cough, the patient denies any nausea vomiting abdominal pain is currently controlled. Patient white count is 12.96, creatinine 0.7 CT abdominal pelvis did shows slightly decrease in the size of the fluid collection with extensive phlegmon changes Objective - Vital Signs Vital signs: Vital Signs Temp 97.7 F 10/30/24 07:20 Pulse 92 10/30/24 07:20 Resp 18 10/30/24 07:20 BP 127/77 10/30/24 07:20 Pulse Ox 96 10/30/24 07:20 FiO2 Intake & Output 10/29/24 10/30/24 10/30/24 18:59 06:59 18:59 Output Total 60 Balance -60 Output: Drainage 60 right back #1 30 right back #2 30 Other: Voiding Method Toilet Toilet # Voids 4 1 - Exam GENERAL DESCRIPTION: An elderly male lying in bed in no distress RESPIRATORY SYSTEM: Unlabored breathing , decreased breath sounds at bases HEART: S1 S2 regular rate and rhythm , ABDOMEN: Soft , no tenderness EXTREMITIES: No edema feet - Labs CBC & Chem 7: 10/30/24 02:58 10/30/24 02:58 Labs: Abnormal Lab Results - Last 24 Hours (Table) 10/30/24 10/30/24 Range/Units 02:58 02:58 WBC 12.96 H (4.50-10.00) X 10*3/uL RBC 2.98 L (4.40-5.60) X 10*6/uL Hgb 8.3 L (13.0-17.0) g/dL Hct 27.9 L (39.6-50.0) % MCHC 29.7 L (32.0-37.0) g/dL RDW 15.4 H (11.5-14.5) % Carbon Dioxide 20.2 L (21.6-31.8) mmol/L Microbiology - Last 24 Hours (Table) 10/24/24 17:45 Blood Culture - Final Blood 10/25/24 13:00 Anaerobic Culture - Final Peritoneal Fluid Anaerobic Gm Negative Bacilli Assessment and Plan (1) Intra-abdominal abscess Current Visit: Yes Status: Acute Code(s): K65.1 - PERITONEAL ABSCESS SNOMED Code(s): 46523262 (2) Penicillin allergy Current Visit: Yes Status: Acute Code(s): Z88.0 - ALLERGY STATUS TO PENICILLIN SNOMED Code(s): 43125637 (3) Failure of outpatient treatment Current Visit: Yes Status: Acute Code(s): Z78.9 - OTHER SPECIFIED HEALTH STATUS SNOMED Code(s): 926039219 Plan: 1patient with a complicated history in this patient with rectal cancer status post sigmoidectomy followed by low anterior resection end ileostomy in September 2024 at [facility] subsequent developing intra-abdominal abscess that has been drained CT-guided and sent home on oral Ceftin and Flagyl now with readmission to the hospital with worsening pain and CT has been suggestive of retroperitoneal abscess status post CT-guided drainage culture did grow E. coli Streptococcus and anaerobes, patient has failed oral antibiotic therapy 2-patient with a penicillin allergy that will limit the number of antibiotics safe to use 3-patient is afebrile white count trending down repeat CT did show significant phlegmon changes around the right colon abscess slightly decreased and will concern for possible catheter malfunction IR to reevaluate that however per surgical note concern for possible anastomosis leak in that case it may be better to transfer patient back to his surgeon at [place] instead of trying to continue with antibiotic therapy patient is currently covered with Rocephin and Flagyl Dictation was produced using [employer] dictation software. please excuse any grammatical, word or spelling errors. Time with Patient: Less than 30
--- NOTE | 2024-10-30 16:18 | P.PN ---
Subjective Interval History: This is a pleasant 67 years old male with past medical history of rectal neoplasm. Status post colectomy and right colostomy. Also has a drain in his right buttock for his history of pelvic abscess. Presents because of rectal pain which was gradually getting worse over the last 1 week. Patient denies nausea vomiting but he has runny bowel movement through the colostomy which is was on and off. No chest pain or dyspnea. No urinary complaint. No headache dizziness weakness or numbness He is afebrile and vitals are stable Unremarkable CBC, BMP, liver enzymes. Urine analysis is negative FOBT is negative C. difficile is negative CT of the abdomen and pelvis with contrast showing right retroperitoneal abscess or fluid collection around the ascending colon and cecum with extensive phlegmonous changes suspicious for perforated ascending colon. Also there is air in the urinary bladder and mild to moderate bilateral hydro nephrosis 10/26 Patient awake alert looks comfortable No abdominal pain or tenderness, no vomiting. No diarrhea through his colostomy bag. His rectal pain looks better today Patient planned for CT-guided drainage of retroperitoneal abscess by IR team. Today postprocedure day #1 Remains on Levaquin and Flagyl 10/27 Patient reports improvement, his rectal pain is minimal. No other new complaint. Colostomy bag in place with no significant diarrhea Patient s/p drain of his retroperitoneal abscess, cultures growing E. coli as pulmonary results pending final results. No chest pain or dyspnea Patient remains on Levaquin and Flagyl and normal saline 75 mL/h 10/28 Patient was seen walking in the hallway, gait is normal. He has some abdominal pain 02/09 today, drain is in place Culture growing gram-negative bacilli and Gram stain showing E. coli with septic constellatus. This pulmonary results Patient remains on broad-spectrum antibiotics per ID team with Le ceftriaxone and Flagyl Continue normal sinus 75 mL/h 10/29--patient was seen and examined today. Complains of abdominal pain around colostomy site. Both drain in place. Complained of leakage of colostomy site. General surgery following, recommended to continue antibiotics, plan for repeat CAT scan in 1 to 2 days, plan to discharge with pulm drain in place. Infectious disease following. Currently on Rocephin and Flagyl. 10/30-- CT Abdomen pelvis done, fluid collection decreasing in size, findings still suggest perforated ascending colon/cecum. General surgery following, concern for catheter not draining well, plan for reassessment by interventional radiology tomorrow, remains on antibiotic per infectious disease. Assessment and plan: --Intraperitoneal abscess: -History of rectal cancer status post colectomy and colostomy. CT of the abdomen and pelvis with contrast showing right retroperitoneal abscess or fluid collection around the ascending colon and cecum with extensive phlegmonous changes suspicious for perforated ascending colon. CT-guided drainage of retroperitoneal abscess by IR team 10/25 -Air in the urinary bladder and bilateral nephrosis, mild to moderate. Most likely secondary to above -Hypertension -Hyperlipidemia -normochromic, normocytic anemia -History of DVT, left leg in May and later on right leg on Eliquis at home Plan: Continue with antibiotics Rocephin and Flagyl. Follow-up blood culture Follow-up wound culture results Continue with IV fluid General Surgery consulted--- retroperitoneal drain in place, plan for reassessme nt by IR on 10/31. Oncology team consult ID consulted Repeat CTreviewed above DVT prophylaxis: Subcutaneous Lovenox therapeutic dose, holding Eliquis. Monitor vital signs and labs Labs and medication were reviewed. Continue same treatment. Further recommendations as per clinical course of the patient PHYSICAL EXAMINATION: GENERAL: The patient is A&O x3, NAD HEENT: EOMI, Sclerae anicteric, Moist Mucous membranes Neck: Supple, Non tender, No JVD PULMONARY: Equal breath souds B/L, No wheezing, No crackles. CARDIOVASCULAR: S1, S2 present. No murmurs, rubs, or gallops. ABDOMEN: Mild tenderness around colostomy site. To drain in place. MUSCULOSKELETAL: No edema, No cyanosis. No clubbing. Normal ROM. Intact peripheral pulses. NEUROLOGICAL: CN 2-12 grossly intact. No FND Skin: No Rash REVIEW OF SYSTEMS: CONSTITUTIONAL: No fever or chills. CARDIOVASCULAR: No chest pain, palpitations or syncope. PULMONARY: No shortness of breath, no cough, sore throat. GASTROINTESTINAL: No nausea, vomiting, diarrhea, abdominal pain. : No Dysuria, urgency, frequency. Extremities: No edema. NEUROLOGICAL: No headaches, no weakness, or numbness Dictation was produced using [employer] dictation software. please excuse any grammatical, word or spelling errors. Objective - Vital Signs Vital signs: Vital Signs Temp 97.6 F 10/30/24 14:25 Pulse 86 10/30/24 14:25 Resp 16 10/30/24 14:25 BP 103/62 10/30/24 14:25 Pulse Ox 96 10/30/24 14:25 FiO2 Intake & Output 10/29/24 10/30/24 10/30/24 18:59 06:59 18:59 Output Total 60 Balance -60 Output: Drainage 60 right back #1 30 right back #2 30 Other: Voiding Method Toilet Toilet # Voids 4 1 - Labs CBC & Chem 7: 10/30/24 02:58 10/30/24 02:58 Labs: Abnormal Lab Results - Last 24 Hours (Table) 10/30/24 10/30/24 Range/Units 02:58 02:58 WBC 12.96 H (4.50-10.00) X 10*3/uL RBC 2.98 L (4.40-5.60) X 10*6/uL Hgb 8.3 L (13.0-17.0) g/dL Hct 27.9 L (39.6-50.0) % MCHC 29.7 L (32.0-37.0) g/dL RDW 15.4 H (11.5-14.5) % Immature Gran # 0.32 H (0.00-0.04) X 10*3/uL Neutrophils # 11.00 H (1.80-7.70) X 10*3/uL Lymphocytes # 0.59 L (0.90-5.00) X 10*3/uL Carbon Dioxide 20.2 L (21.6-31.8) mmol/L Microbiology - Last 24 Hours (Table) 10/24/24 17:45 Blood Culture - Final Blood 10/25/24 13:00 Anaerobic Culture - Final Peritoneal Fluid Anaerobic Gm Negative Bacilli
[2024-10-31 09:18] LABS: Basophils # (A) 0.06 X 10*3/uL (0.00-0.10); Basophils % (A) 0.5 %; Eosinophils % (A) 0.9 %; HCT 29.9 % (39.6-50.0); HGB 9.4 g/dL (13.0-17.0); Lymphocytes # (A) 0.85 X 10*3/uL (0.90-5.00); Lymphocytes % (A) 7.5 %; MCH 28.7 pg (27.0-32.0); MCHC 31.4 g/dL (32.0-37.0); MCV 91.4 FL (80.0-97.0); Mean Platelet Volume 9.5 FL (9.5-12.2); Monocytes # (A) 0.84 X 10*3/uL (0.20-1.00); Monocytes % (A) 7.4 %; NRBC Per 100 WBC 0 X 10*3/uL (0.00-0.01); Neutrophils # (A) 9.07 X 10*3/uL (1.80-7.70); Neutrophils % (A) 79.9 %; Platelet Count 365 X 10*3/uL (140-440); RBC 3.27 X 10*6/uL (4.40-5.60); RDW 15.3 % (11.5-14.5); WBC 11.35 X 10*3/uL (4.50-10.00)
[2024-10-31 09:45] LABS: ALT 11 U/L (10-49); AST 14 U/L (14-35); Albumin 3.3 g/dL (3.8-4.9); Albumin/Globulin Ratio 1.22 Ratio (1.60-3.17); Alkaline Phosphatase 81 U/L (41-126); BUN/Creat Ratio 16.86 Ratio (12.00-20.00); Blood Urea Nitrogen 11.8 mg/dL (9.0-27.0); Calcium 9.2 mg/dL (8.7-10.3); Carbon Dioxide 19.5 mmol/L (21.6-31.8); Chloride 107 mmol/L (96-109); Globulin 2.7 g/dL (1.6-3.3); Glucose 100 mg/dL (70-110); Potassium 4.2 mmol/L (3.5-5.5); Sodium 137 mmol/L (135-145); Total Bilirubin <0.2 mg/dL (0.3-1.2)
--- NOTE | 2024-10-31 15:38 | P.PN ---
Subjective Interval History: This is a pleasant 67 years old male with past medical history of rectal neoplasm. Status post colectomy and right colostomy. Also has a drain in his right buttock for his history of pelvic abscess. Presents because of rectal pain which was gradually getting worse over the last 1 week. Patient denies nausea vomiting but he has runny bowel movement through the colostomy which is was on and off. No chest pain or dyspnea. No urinary complaint. No headache dizziness weakness or numbness He is afebrile and vitals are stable Unremarkable CBC, BMP, liver enzymes. Urine analysis is negative FOBT is negative C. difficile is negative CT of the abdomen and pelvis with contrast showing right retroperitoneal abscess or fluid collection around the ascending colon and cecum with extensive phlegmonous changes suspicious for perforated ascending colon. Also there is air in the urinary bladder and mild to moderate bilateral hydro nephrosis 10/26 Patient awake alert looks comfortable No abdominal pain or tenderness, no vomiting. No diarrhea through his colostomy bag. His rectal pain looks better today Patient planned for CT-guided drainage of retroperitoneal abscess by IR team. Today postprocedure day #1 Remains on Levaquin and Flagyl 10/27 Patient reports improvement, his rectal pain is minimal. No other new complaint. Colostomy bag in place with no significant diarrhea Patient s/p drain of his retroperitoneal abscess, cultures growing E. coli as pulmonary results pending final results. No chest pain or dyspnea Patient remains on Levaquin and Flagyl and normal saline 75 mL/h 10/28 Patient was seen walking in the hallway, gait is normal. He has some abdominal pain 02/09 today, drain is in place Culture growing gram-negative bacilli and Gram stain showing E. coli with septic constellatus. This pulmonary results Patient remains on broad-spectrum antibiotics per ID team with Le ceftriaxone and Flagyl Continue normal sinus 75 mL/h 10/29--patient was seen and examined today. Complains of abdominal pain around colostomy site. Both drain in place. Complained of leakage of colostomy site. General surgery following, recommended to continue antibiotics, plan for repeat CAT scan in 1 to 2 days, plan to discharge with pulm drain in place. Infectious disease following. Currently on Rocephin and Flagyl. 10/30-- CT Abdomen pelvis done, fluid collection decreasing in size, findings still suggest perforated ascending colon/cecum. General surgery following, concern for catheter not draining well, plan for reassessment by interventional radiology tomorrow, remains on antibiotic per infectious disease. 10/31--patient was seen and examined today. at bedside. Patient is afebrile, heart rate 99, respiratory rate 16, blood pressure 116/75, saturating 98% on room air. WBCs 11.3, hemoglobin 9.4, platelet 365 per. BMP unremarkable. Infectious disease recommended transfer to [facility] Awaiting further evaluation by general surgery and IR. Assessment and plan: --Intraperitoneal abscess: -History of rectal cancer status post colectomy and colostomy. CT of the abdomen and pelvis with contrast showing right retroperitoneal abscess or fluid collection around the ascending colon and cecum with extensive phlegmonous changes suspicious for perforated ascending colon. CT-guided drainage of retroperitoneal abscess by IR team 10/25 -Air in the urinary bladder and bilateral nephrosis, mild to moderate. Most likely secondary to above -Hypertension -Hyperlipidemia -normochromic, normocytic anemia -History of DVT, left leg in May and later on right leg on Eliquis at home Plan: Continue with antibiotics Rocephin and Flagyl. Follow-up blood culture Follow-up wound culture results Continue with IV fluid General Surgery consulted--- retroperitoneal drain in place, plan for reassessment by IR on 10/31. Oncology team consult ID consulted Repeat CT/reviewed above DVT prophylaxis: Subcutaneous Lovenox therapeutic dose, holding Eliquis. Monitor vital signs and labs Labs and medication were reviewed. Continue same treatment. Further recommendations as per clinical course of the patient PHYSICAL EXAMINATION: GENERAL: The patient is A&O x3, NAD HEENT: EOMI, Sclerae anicteric, Moist Mucous membranes Neck: Supple, Non tender, No JVD PULMONARY: Equal breath souds B/L, No wheezing, No crackles. CARDIOVASCULAR: S1, S2 present. No murmurs, rubs, or gallops. ABDOMEN: Mild tenderness around colostomy site. Two drain in place. MUSCULOSKELETAL: No edema, No cyanosis. No clubbing. Normal ROM. Intact peripheral pulses. NEUROLOGICAL: CN 2-12 grossly intact. No FND Skin: No Rash REVIEW OF SYSTEMS: CONSTITUTIONAL: No fever or chills. CARDIOVASCULAR: No chest pain, palpitations or syncope. PULMONARY: No shortness of breath, no cough, sore throat. GASTROINTESTINAL: No nausea, vomiting, diarrhea, abdominal pain. : No Dysuria, urgency, frequency. Extremities: No edema. NEUROLOGICAL: No headaches, no weakness, or numbness Dictation was produced using [employer] dictation software. please excuse any grammatical, word or spelling errors. Objective - Vital Signs Vital signs: Vital Signs Temp 97.7 F 10/31/24 14:00 Pulse 99 10/31/24 14:00 Resp 16 10/31/24 14:00 BP 116/75 10/31/24 14:00 Pulse Ox 98 10/31/24 14:00 FiO2 Intake & Output 10/30/24 10/31/24 10/31/24 18:59 06:59 18:59 Intake Total 200 Output Total 21 100 50 Balance -21 -100 150 Intake: Oral 200 Output: Drainage 21 100 50 right back #1 16 0 right back #2 5 100 50 Other: Voiding Method Toilet # Voids 5 1 - Labs CBC & Chem 7: 10/31/24 02:55 10/31/24 02:55 Labs: Abnormal Lab Results - Last 24 Hours (Table) 10/31/24 10/31/24 Range/Units 02:55 02:55 WBC 11.35 H (4.50-10.00) X 10*3/uL RBC 3.27 L (4.40-5.60) X 10*6/uL Hgb 9.4 L (13.0-17.0) g/dL Hct 29.9 L (39.6-50.0) % MCHC 31.4 L (32.0-37.0) g/dL RDW 15.3 H (11.5-14.5) % Immature Gran # 0.43 H (0.00-0.04) X 10*3/uL Neutrophils # 9.07 H (1.80-7.70) X 10*3/uL Lymphocytes # 0.85 L (0.90-5.00) X 10*3/uL Carbon Dioxide 19.5 L (21.6-31.8) mmol/L Total Bilirubin <0.2 L (0.3-1.2) mg/dL Total Protein 6.0 L (6.2-8.2) g/dL Albumin 3.3 L (3.8-4.9) g/dL Albumin/Globulin Ratio 1.22 L (1.60-3.17) Ratio
--- NOTE | 2024-10-31 15:51 | P.PN ---
Subjective Progress Note Date: 10/31/24 Principal diagnosis: Abdominal abscess Patient sitting up at the bedside. Says his pain is improved after flushing the catheter yesterday seem to work and they have had 150 cc of purulent fluid out since then. Still with minimal drainage from the perianastomotic drain. Both b ags were changed by radiology today. He is afebrile. White blood cell count improved at 11.3. Objective - Vital Signs Vital signs: Vital Signs Temp 97.7 F 10/31/24 14:00 Pulse 99 10/31/24 14:00 Resp 16 10/31/24 14:00 BP 116/75 10/31/24 14:00 Pulse Ox 98 10/31/24 14:00 FiO2 Intake & Output 10/30/24 10/31/24 10/31/24 18:59 06:59 18:59 Intake Total 200 Output Total 21 100 50 Balance -21 -100 150 Intake: Oral 200 Output: Drainage 21 100 50 right back #1 16 0 right back #2 5 100 50 Other: Voiding Method Toilet # Voids 5 1 - Exam Abdomen: Soft, nondistended, mild right sided tenderness, no rebound or guarding - Labs CBC & Chem 7: 10/31/24 02:55 10/31/24 02:55 Labs: Abnormal Lab Results - Last 24 Hours (Table) 10/31/24 10/31/24 Range/Units 02:55 02:55 WBC 11.35 H (4.50-10.00) X 10*3/uL RBC 3.27 L (4.40-5.60) X 10*6/uL Hgb 9.4 L (13.0-17.0) g/dL Hct 29.9 L (39.6-50.0) % MCHC 31.4 L (32.0-37.0) g/dL RDW 15.3 H (11.5-14.5) % Immature Gran # 0.43 H (0.00-0.04) X 10*3/uL Neutrophils # 9.07 H (1.80-7.70) X 10*3/uL Lymphocytes # 0.85 L (0.90-5.00) X 10*3/uL Carbon Dioxide 19.5 L (21.6-31.8) mmol/L Total Bilirubin <0.2 L (0.3-1.2) mg/dL Total Protein 6.0 L (6.2-8.2) g/dL Albumin 3.3 L (3.8-4.9) g/dL Albumin/Globulin Ratio 1.22 L (1.60-3.17) Ratio Assessment and Plan (1) Abscess Narrative/Plan: Patient continues to improve clinically. Apparently there was discussion about transfer to [facility] today. Unclear exactly why that was discussed. Family also somewhat confused. The patient seems to be clinically improving and I would be comfortable with plans for outpatient IV antibiotic therapy and follow-up as outpatient with his colorectal surgeon. This was discussed with infectious disease. Certainly if the patient leaves and has recurrent pain, fevers, nausea vomiting recommend evaluation at [facility] where the recent low anterior resection took place. The patient's right sided retroperitoneal abscess thought to be related to the prior leak at the anastomotic site which seems to be improved. No plans for surgical intervention currently. Patient and are agreeable with this plan. Current Visit: Yes Status: Acute Priority: High Code(s): L02.91 - CUTANEOUS ABSCESS, UNSPECIFIED SNOMED Code(s): 200365431
[2024-10-31] MEDS: TAMSULOSIN 0.4 MG CAP.ER.24H PO SCH (20:47)
[2024-11-01 08:50] LABS: BUN/Creat Ratio 17.14 Ratio (12.00-20.00); Carbon Dioxide 20.7 mmol/L (21.6-31.8); Chloride 107 mmol/L (96-109); Glucose 92 mg/dL (70-110); Potassium 4.3 mmol/L (3.5-5.5); Sodium 137 mmol/L (135-145)
[2024-11-01 09:05] LABS: Basophils # (A) 0.03 X 10*3/uL (0.00-0.10); Basophils % (A) 0.3 %; Eosinophils # (A) 0.09 X 10*3/uL (0.04-0.35); HCT 28.2 % (39.6-50.0); HGB 8.6 g/dL (13.0-17.0); Lymphocytes # (A) 0.62 X 10*3/uL (0.90-5.00); Lymphocytes % (A) 6.9 %; MCH 28.2 pg (27.0-32.0); MCHC 30.5 g/dL (32.0-37.0); MCV 92.5 FL (80.0-97.0); Mean Platelet Volume 9.7 FL (9.5-12.2); Monocytes # (A) 0.64 X 10*3/uL (0.20-1.00); Monocytes % (A) 7.1 %; NRBC Per 100 WBC 0 X 10*3/uL (0.00-0.01); Neutrophils # (A) 7.37 X 10*3/uL (1.80-7.70); Neutrophils % (A) 81.6 %; Platelet Count 331 X 10*3/uL (140-440); RBC 3.05 X 10*6/uL (4.40-5.60); RDW 15.6 % (11.5-14.5); WBC 9.03 X 10*3/uL (4.50-10.00)
[2024-11-01] MEDS: FAMOTIDINE 20 MG TAB PO SCH (09:21)
--- NOTE | 2024-11-01 12:54 | P.PN ---
Subjective Progress Note Date: 11/01/24 Patient is feels better. He states his abdominal pain is minimal. He is scheduled to go home today. Abdomen is soft. Colostomy is functioning. Patient will continue IV antibiotics at home. Objective - Vital Signs Vital signs: Vital Signs Temp 98.3 F 11/01/24 07:12 Pulse 93 11/01/24 07:12 Resp 18 11/01/24 10:15 BP 124/73 11/01/24 07:12 Pulse Ox 98 11/01/24 07:12 FiO2 Intake & Output 10/31/24 11/01/24 11/01/24 18:59 06:59 18:59 Intake Total 400 Output Total 50 30 200 Balance 350 -30 -200 Intake: Oral 400 Output: Drainage 50 30 right back #1 0 right back #2 50 30 Stool 200 Other: Voiding Method Toilet # Voids 2 2 # Bowel Movements 1 - Labs CBC & Chem 7: 11/01/24 02:50 11/01/24 02:50 Labs: Abnormal Lab Results - Last 24 Hours (Table) 11/01/24 11/01/24 Range/Units 02:50 02:50 RBC 3.05 L (4.40-5.60) X 10*6/uL Hgb 8.6 L (13.0-17.0) g/dL Hct 28.2 L (39.6-50.0) % MCHC 30.5 L (32.0-37.0) g/dL RDW 15.6 H (11.5-14.5) % Immature Gran # 0.28 H (0.00-0.04) X 10*3/uL Lymphocytes # 0.62 L (0.90-5.00) X 10*3/uL Carbon Dioxide 20.7 L (21.6-31.8) mmol/L
--- NOTE | 2024-11-01 14:55 | P.DS ---
Providers Date of admission: 10/24/24 19:28 Expected date of discharge: 11/01/24 Attending physician: Ashli Earl Consults: 10/24/24 18:12 Consult Physician Stat Consulting Provider: Adeel Summers Consult Reason/Comments: Ascending colon perforation Do you want consulting provider notified?: Yes Consult Physician Stat Consulting Provider: Nolberto Flynn Consult Reason/Comments: CT GI abnormality Do you want consulting provider notified?: Yes, Notify in am 10/27/24 13:26 Consult Physician Routine Consulting Provider: Little Cavazos Consult Reason/Comments: Retroperitoneal abscess Do you want consulting provider notified?: Yes Primary care physician: [facility] Course: Discharge diagnoses: --Intraperitoneal abscess: -History of rectal cancer status post colectomy and colostomy. CT of the abdomen and pelvis with contrast showing right retroperitoneal abscess or fluid collection around the ascending colon and cecum with extensive phlegmonous changes suspicious for perforated ascending colon. CT-guided drainage of retroperitoneal abscess by IR team 10/25 -Air in the urinary bladder and bilateral nephrosis, mild to moderate. Most likely secondary to above -Hypertension -Hyperlipidemia -normochromic, normocytic anemia -History of DVT, left leg in May and later on right leg on Eliquis at home Patient received Rocephin and Flagyl during hospitalization, peritoneal fluid culture grew gram-negative bacilli,, E. coli and Streptococcus, general surgery and infectious disease and oncology were consulted during hospitalization. Patient underwent CT-guided drainage of retroperitoneal abscess on 10/25, had drain placed. Reassessment by on 10/31, repeat CT on 10/30 done. No surgical intervention indicated per general surgery. Continued on Rocephin and Flagyl at discharge for 21 days and outpatient follow-up with general surgery and infectious disease. Patient has Port-A-Cath in place. Hospital course: This is a pleasant 67 years old male with past medical history of rectal neoplasm. Status post colectomy and right colostomy. Also has a drain in his right buttock for his history of pelvic abscess. Presents because of rectal pain which was gradually getting worse over the last 1 week. Patient denies nausea vomiting but he has runny bowel movement through the colostomy which is was on and off. No chest pain or dyspnea. No urinary complaint. No headache dizziness weakness or numbness He is afebrile and vitals are stable Unremarkable CBC, BMP, liver enzymes. Urine analysis is negative FOBT is negative C. difficile is negative CT of the abdomen and pelvis with contrast showing right retroperitoneal abscess or fluid collection around the ascending colon and cecum with extensive phlegmonous changes suspicious for perforated ascending colon. Also there is air in the urinary bladder and mild to moderate bilateral hydronephrosis 10/26 Patient awake alert looks comfortable No abdominal pain or tenderness, no vomiting. No diarrhea through his colostomy bag. His rectal pain looks better today Patient planned for CT-guided drainage of retroperitoneal abscess by IR team. Today postprocedure day #1 Remains on Levaquin and Flagyl 10/27 Patient reports improvement, his rectal pain is minimal. No other new complaint. Colostomy bag in place with no significant diarrhea Patient s/p drain of his retroperitoneal abscess, cultures growing E. coli as pulmonary results pending final results. No chest pain or dyspnea Patient remains on Levaquin and Flagyl and normal saline 75 mL/h 10/28 Patient was seen walking in the hallway, gait is normal. He has some abdominal pain 02/09 today, drain is in place Culture growing gram-negative bacilli and Gram stain showing E. coli with septic constellatus. This pulmonary results Patient remains on broad-spectrum antibiotics per ID team with Le ceftriaxone and Flagyl Continue normal sinus 75 mL/h 10/29--patient was seen and examined today. Complains of abdominal pain around colostomy site. Both drain in place. Complained of leakage of colostomy site. General surgery following, recommended to continue antibiotics, plan for repeat CAT scan in 1 to 2 days, plan to discharge with pulm drain in place. Infectious disease following. Currently on Rocephin and Flagyl. 10/30-- CT Abdomen pelvis done, fluid collection decreasing in size, findings still suggest perforated ascending colon/cecum. General surgery following, concern for catheter not draining well, plan for reassessment by interventional radiology tomorrow, remains on antibiotic per infectious disease. 10/31--patient was seen and examined today. at bedside. Patient is afebrile, heart rate 99, respiratory rate 16, blood pressure 116/75, saturating 98% on room air. WBCs 11.3, hemoglobin 9.4, platelet 365 per. BMP unremarkable. Infectious disease recommended transfer to [facility] Awaiting further evaluation by general surgery and IR. 11/01--patient was seen and examined today. at bedside. Patient remained afebrile, vital stable. No issues overnight. Patient feeling better today. General surgery infectious disease following the patient, okay to discharge home with home IV antibiotics, no surgical intervention indicated per general surgery. Patient continued on Rocephin and Flagyl at discharge for 3 weeks. Outpatient follow-up with general surgery and ID. PHYSICAL EXAMINATION: GENERAL: The patient is A&O x3, NAD HEENT: EOMI, Sclerae anicteric, Moist Mucous membranes Neck: Supple, Non tender, No JVD PULMONARY: Equal breath souds B/L, No wheezing, No crackles. CARDIOVASCULAR: S1, S2 present. No murmurs, rubs, or gallops. ABDOMEN: Mild tenderness around colostomy site. Two drain in place. MUSCULOSKELETAL: No edema, No cyanosis. No clubbing. Normal ROM. Intact peripheral pulses. NEUROLOGICAL: CN 2-12 grossly intact. No FND Skin: No Rash Dictation was produced using [employer] dictation software. please excuse any gramm atical, word or spelling errors. Plan - Discharge Summary Discharge Rx Participant: No New Discharge Prescriptions: New metroNIDAZOLE [Flagyl] 500 mg PO TID #90 tab cefTRIAXone [Rocephin] 2,000 mg IVP Q24HR #21 each Continue oxyCODONE HCL [OxyIR] 5 mg PO Q6H PRN PRN Reason: Pain Acetaminophen Tab [Tylenol] 650 mg PO Q6H PRN PRN Reason: Fever And/ Or Pain Tamsulosin [Flomax] 0.8 mg PO DAILY Apixaban [Eliquis] 5 mg PO BID Discontinued metroNIDAZOLE [Flagyl] 500 mg PO BID cefuroxime axetiL [Ceftin] 500 mg PO BID Discharge Medication List Acetaminophen Tab [Tylenol] 650 mg PO Q6H PRN 10/24/24 [History] Apixaban [Eliquis] 5 mg PO BID 10/24/24 [History] oxyCODONE HCL [OxyIR] 5 mg PO Q6H PRN 10/24/24 [History] Tamsulosin [Flomax] 0.8 mg PO DAILY 10/25/24 [History] cefTRIAXone [Rocephin] 2,000 mg IVP Q24HR #21 each 10/31/24 [Rx] metroNIDAZOLE [Flagyl] 500 mg PO TID #90 tab 10/31/24 [Rx] Follow up Appointment(s)/Referral(s): Zaina Sanchez MD [Primary Care Provider] - 1-2 days [facility], [NON-STAFF] - As Needed [facility], [REFERRING] - As Needed (Will deliver to home between 6-8p tonight) Little Cavazos MD [STAFF PHYSICIAN] - 1 Week Patti Castro MD [STAFF PHYSICIAN] - 11/07/24 9:00 am
[2024-11-01 15:12] VITALS: BP 114/70; PULSE 89; RESP 17; TEMP 97.5
--- NOTE | 2024-11-01 16:44 | P.PN ---
Subjective Progress Note Date: 10/31/24 Principal diagnosis: Reason for follow-up is intra-abdominal abscess Patient is a 64-year-old male with a past medical history significant for rectal cancer completed chemo and radiation in July 2024 subsequently patient did have a sigmoidectomy followed by low anterior resection with diverting ileostomy in September 2024 that was done at [facility] clinical course complicated by development of intraperitoneal abscess status post percutaneous drainage patient was discharged on oral Ceftin and Flagyl with readmission to this facility concerning for rectal pressure has been diagnosed with retroperitoneal abscess did have a CT-guided drainage of the abscess culture now growing E. coli strep and anaerobe. On today's evaluation that is 10/31/2024, patient has been afebrile, patient is breathing comfortably and is currently on room air, patient denies having any significant cough no chest pain, patient denies nausea vomiting abdominal pain has decreased in intensity. Patient white count is 11.35, creatinine 0.7 Objective - Vital Signs Vital signs: Vital Signs Temp 97.8 F 10/31/24 07:00 Pulse 96 10/31/24 07:00 Resp 16 10/31/24 07:00 BP 116/77 10/31/24 07:00 Pulse Ox 97 10/31/24 07:00 FiO2 Intake & Output 10/30/24 10/31/24 10/31/24 18:59 06:59 18:59 Output Total 21 100 Balance -21 -100 Output: Drainage 21 100 right back #1 16 0 right back #2 5 100 Other: Voiding Method Toilet # Voids 5 1 - Exam GENERAL DESCRIPTION: An elderly male lying in bed in no distress RESPIRATORY SYSTEM: Unlabored breathing , decreased breath sounds at bases HEART: S1 S2 regular rate and rhythm , ABDOMEN: Soft , no tenderness EXTREMITIES: No edema feet - Labs CBC & Chem 7: 11/01/24 02:50 11/01/24 02:50 Labs: Abnormal Lab Results - Last 24 Hours (Table) 10/31/24 10/31/24 Range/Units 02:55 02:55 WBC 11.35 H (4.50-10.00) X 10*3/uL RBC 3.27 L (4.40-5.60) X 10*6/uL Hgb 9.4 L (13.0-17.0) g/dL Hct 29.9 L (39.6-50.0) % MCHC 31.4 L (32.0-37.0) g/dL RDW 15.3 H (11.5-14.5) % Immature Gran # 0.43 H (0.00-0.04) X 10*3/uL Neutrophils # 9.07 H (1.80-7.70) X 10*3/uL Lymphocytes # 0.85 L (0.90-5.00) X 10*3/uL Carbon Dioxide 19.5 L (21.6-31.8) mmol/L Total Bilirubin <0.2 L (0.3-1.2) mg/dL Total Protein 6.0 L (6.2-8.2) g/dL Albumin 3.3 L (3.8-4.9) g/dL Albumin/Globulin Ratio 1.22 L (1.60-3.17) Ratio Assessment and Plan (1) Intra-abdominal abscess Status: Acute Code(s): K65.1 - PERITONEAL ABSCESS SNOMED Code(s): 62890296 (2) Penicillin allergy Status: Acute Code(s): Z88.0 - ALLERGY STATUS TO PENICILLIN SNOMED Code(s): 77880306 (3) Failure of outpatient treatment Status: Acute Code(s): Z78.9 - OTHER SPECIFIED HEALTH STATUS SNOMED Code(s): 100833207 Plan: 1patient with a complicated history in this patient with rectal cancer status post sigmoidectomy followed by low anterior resection end ileostomy in September 2024 at [facility] subsequent developing intra-abdominal abscess that has been drained CT-guided and sent home on oral Ceftin and Flagyl now with readmission to the hospital with worsening pain and CT has been suggestive of retroperitoneal abscess status post CT-guided drainage culture did grow E. coli Streptococcus and anaerobes, patient has failed oral antibiotic therapy 2-patient with a penicillin allergy that will limit the number of antibiotics safe to use 3-patient is afebrile white count trending down, repeat CT did show significant phlegmon changes around the right colon abscess slightly decreased, I did have discussion with the surgeon on the case mention no concern for ongoing leak in this case we will keep the patient on Rocephin and oral Flagyl prescription sent to the pharmacy discussed in detail with the on the phone he already made an appointment to follow-up with the surgeon once discharged from the hospital Dictation was produced using [employer] dictation software. please excuse any grammatical, word or spelling errors. Time with Patient: Less than 30
--- NOTE | 2024-11-01 16:45 | P.PN ---
Subjective Progress Note Date: 11/01/24 Principal diagnosis: Reason for follow-up is intra-abdominal abscess Patient is a 64-year-old male with a past medical history significant for rectal cancer completed chemo and radiation in July 2024 subsequently patient did have a sigmoidectomy followed by low anterior resection with diverting ileostomy in September 2024 that was done at [facility] clinical course complicated by development of intraperitoneal abscess status post percutaneous drainage patient was discharged on oral Ceftin and Flagyl with readmission to this facility concerning for rectal pressure has been diagnosed with retroperitoneal abscess did have a CT-guided drainage of the abscess culture now growing E. coli strep and anaerobe. On today's evaluation that is 11/01/2024, Patient is afebrile this morning patient denies having any chest pain shortness of breath or cough, the patient is currently on room air, patient abdominal pain has decreased intensity no na usea no vomiting or worsening output in his ostomy. Patient white count normalized to 9.03, creatinine 0.7 Objective - Vital Signs Vital signs: Vital Signs Temp 98.3 F 11/01/24 07:12 Pulse 93 11/01/24 07:12 Resp 18 11/01/24 10:15 BP 124/73 11/01/24 07:12 Pulse Ox 98 11/01/24 07:12 FiO2 Intake & Output 10/31/24 11/01/24 11/01/24 18:59 06:59 18:59 Intake Total 400 Output Total 50 30 200 Balance 350 -30 -200 Intake: Oral 400 Output: Drainage 50 30 right back #1 0 right back #2 50 30 Stool 200 Other: Voiding Method Toilet # Voids 2 2 # Bowel Movements 1 - Exam GENERAL DESCRIPTION: An elderly male lying in bed in no distress RESPIRATORY SYSTEM: Unlabored breathing , decreased breath sounds at bases HEART: S1 S2 regular rate and rhythm , ABDOMEN: Soft , no tenderness EXTREMITIES: No edema feet - Labs CBC & Chem 7: 11/01/24 02:50 11/01/24 02:50 Labs: Abnormal Lab Results - Last 24 Hours (Table) 11/01/24 11/01/24 Range/Units 02:50 02:50 RBC 3.05 L (4.40-5.60) X 10*6/uL Hgb 8.6 L (13.0-17.0) g/dL Hct 28.2 L (39.6-50.0) % MCHC 30.5 L (32.0-37.0) g/dL RDW 15.6 H (11.5-14.5) % Immature Gran # 0.28 H (0.00-0.04) X 10*3/uL Lymphocytes # 0.62 L (0.90-5.00) X 10*3/uL Carbon Dioxide 20.7 L (21.6-31.8) mmol/L Assessment and Plan (1) Intra-abdominal abscess Status: Acute Code(s): K65.1 - PERITONEAL ABSCESS SNOMED Code(s): 54898095 (2) Penicillin allergy Status: Acute Code(s): Z88.0 - ALLERGY STATUS TO PENICILLIN SNOMED Code(s): 42501745 (3) Failure of outpatient treatment Status: Acute Code(s): Z78.9 - OTHER SPECIFIED HEALTH STATUS SNOMED Code(s): 976787607 Plan: 1patient with a complicated history in this patient with rectal cancer status post sigmoidectomy followed by low anterior resection end ileostomy in September 2024 at [facility] subsequent developing intra-abdominal abscess that has been drained CT-guided and sent home on oral Ceftin and Flagyl now with readmission to the hospital with worsening pain and CT has been suggestive of retroperitoneal abscess status post CT-guided drainage culture did grow E. coli Streptococcus and anaerobes, patient has failed oral antibiotic t herapy 2-patient with a penicillin allergy that will limit the number of antibiotics safe to use 3-patient is afebrile white count trending down, repeat CT did show significant phlegmon changes around the right colon abscess slightly decreased, I did have discussion with the surgeon on the case mention no concern for ongoing leak 4outpatient IV Rocephin oral Flagyl has been arranged for the patient plan is for a 2-week course of IV Rocephin, oral Flagyl and repeating a CAT scan in 2 weeks to make sure overall improvement/resolution of the abscess before discontinuation of the antibiotics Multiple question concern answered Dictation was produced using [employer] software. please excuse any grammatical, word or spelling errors. Time with Patient: Less than 30
== END 2024-11-01 15:38 | disposition home or self-care (01) | DRG 393 ==
LOC: EC 14:01 → 4SSUR 19:28
PROVIDERS: ADMIT Internal Medicine; ATTEND Internal Medicine
PROC: 0W9H30Z Drainage of Retroperitoneum with Drainage Device, Percutaneous Approach (ICD-10-PCS; principal; 2024-10-25)
DX: K63.1 Perforation of intestine (nontraumatic) (principal); K68.19 Other retroperitoneal abscess; N13.30 Unspecified hydronephrosis; Z93.3 Colostomy status; Z93.2 Ileostomy status; I10 Essential (primary) hypertension; B95.4 Other streptococcus as the cause of diseases classified elsewhere; D63.0 Anemia in neoplastic disease; D72.828 Other elevated white blood cell count; B96.20 Unspecified Escherichia coli [E. coli] as the cause of diseases classified elsewhere; E78.5 Hyperlipidemia, unspecified; B96.89 Other specified bacterial agents as the cause of diseases classified elsewhere; Z79.01 Long term (current) use of anticoagulants; Z86.718 Personal history of other venous thrombosis and embolism; Z90.49 Acquired absence of other specified parts of digestive tract; Z85.048 Personal history of other malignant neoplasm of rectum, rectosigmoid junction, and anus; Z87.891 Personal history of nicotine dependence; Z92.21 Personal history of antineoplastic chemotherapy; Z92.3 Personal history of irradiation; Z88.0 Allergy status to penicillin; Z79.899 Other long term (current) drug therapy
CPT/HCPCS: 36415; 74177; 75989; 80048; 80053; 81003; 82150; 82272; 83605; 83690; 85025; 87040; 87045; 87046; 87070; 87075; 87077; 87186; 87205; 87324; 96365; 96366; 96372; 96375; 96376; 99285

== ENCOUNTER → 2024-11-18 | Outpatient (CLI) | payer MEDICARE ==
[2024-11-18 16:04] LABS: African American GFR (CKD) >90 (>60 ml/min/1.73 sqM); Blood Urea Nitrogen 28 mg/dL (9-20); Non-African American GFR(CKD) 90 (>60 ml/min/1.73 sqM)
--- NOTE | 2024-11-19 08:45 | CT ---
EXAMINATION TYPE: CT abdomen pelvis w con DATE OF EXAM: 11/19/2024 8:29 AM COMPARISON: 10/30/2024. CLINICAL INDICATION: Male, 64 years old with history of K65.1 PERITONEAL ABSCESS; colon ca TECHNIQUE: Axial CT abdomen pelvis w con;Sagittal and coronal reformats were created on a separate w orkstation. Contrast used:100ml mL of Isovue 300 with IV Contrast, (none if empty) Oral contrast used: with Oral Contrast (none if empty) CT DLP: 1040 mGycm, Automated exposure control for dose reduction was used. FINDINGS: LOWER CHEST: Right lower lung 5 mm pulmonary nodule. ABDOMEN LIVER: Unremarkable GALLBLADDER AND BILE DUCTS: Unremarkable. PANCREAS: Unremarkable. SPLEEN: Unremarkable. ADRENAL GLANDS: Unremarkable. KIDNEYS AND URETERS: No evidence of hydronephrosis or renal calculus. The ureters are unremarkable. PELVIS BLADDER: There remains a large amount air in the anterior bladder.. No evidence for wall thickening o r mass given limitations of exam. REPRODUCTIVE: Prostate is enlarged in size measuring 4.6 cm in transverse dimension. ABDOMEN & PELVIS STOMACH AND BOWEL: No evidence of bowel obstruction. Extensive inflammation changes near the ascendin g colon Has decreased from prior. There is circumferential high changes around the sigmoid: Rectum with sutur e identified. Right lower quadrant ostomy is present evidence of parastomal hernia containing loops of smallr bowel . PERITONEUM/RETROPERITONEUM: No evidence for pneumoperitoneum. There is been a decrease in extensive i nflammation changes in the right abdomen. Right retroperitoneal drainage catheter seen on prior is no longer visualized. Fluid collection has nearly resolved there may be small pocket of fluid measuring 2.1 x 1.5 cm near the colon series 5 image 46. Fluid collection in the presacral space measuring 7 mm x 44 mm is more pronounced. Drainage catheter in this spot on prior is no longer visualized. Surgical sutures present. Similar prominence of the wa lls of the colon/sigmoid colon. Fluid collection anterior to the left kidney has resolved. VASCULATURE: No evidence of aortic aneurysm. MUSCULOSKELETAL: No acute osseous abnormalities LYMPH NODES: No gross evidence for lymphadenopathy. SOFT TISSUE/ABDOMINAL WALL: Small fat-containing umbilical hernia. IMPRESSION: 1. Interval removal of right retroperitoneal drainage catheter with possible small fluid collection adjacent to the colon remaining. 2. Resolution of left-sided fluid collection. 3. Slight increase in size of presacral space fluid collection compared to prior with interval remov al of drainage catheter in the presacral place. 4. There remains large amount air in the urinary bladder correlate with recent instrumentation. 5. Bilateral [id number] hydronephrosis likely from inflammation throughout the abdomen. 6. Right lower quadrant ostomy is present with parastomal hernia containing loops of bowel. [facility], , 11/19/2024 8:43 AM
== END | disposition home or self-care (01) ==
LOC: RADCTMAIN 15:18
PROVIDERS: ATTEND Internal Medicine Infectious Disease
DX: K65.1 Peritoneal abscess (principal); C18.9 Malignant neoplasm of colon, unspecified; K43.5 Parastomal hernia without obstruction or gangrene; N13.30 Unspecified hydronephrosis
CPT/HCPCS: 82565; 84520; 74177; 36415; Q9967

== ENCOUNTER → 2025-03-02 | Outpatient (CLI) | payer MEDICARE ==
--- NOTE | 2025-03-02 11:13 | US ---
EXAMINATION TYPE: US venous doppler duplex LE LT DATE OF EXAM: 03/02/2025 11:00 AM COMPARISON: 10/12/2024 CLINICAL INDICATION: Male, 64 years old with history of R22.42 LOCALIZED SWELLING, MASS AND LUMP, LEF T LOW; Left leg edema hx of DVT, Pain TECHNIQUE: The lower extremity deep venous system is examined utilizing real time linear array sonog glenis with graded compression, color doppler sonography, and spectral doppler. SIDE PERFORMED: Left FINDINGS: VESSELS IMAGED: Common Femoral Vein Deep Femoral Vein Greater Saphenous Vein * Femoral Vein Popliteal Vein Small Saphenous Vein * Proximal Calf Veins (* superficial vessels) Left Leg: Positive for DVT Femoral Vein to the Popliteal Vein. IMPRESSION: 1. Positive for lower extremity DVT. Given progression from 10/12/2024 now involving the femoral vein down into the popliteal vein, acute DVT is suggested. [facility], , 03/02/2025 11:10 AM
== END | disposition home or self-care (01) ==
LOC: RADUSWWP 10:38
PROVIDERS: ATTEND Internal Medicine Hematology & Oncology
DX: I82.412 Acute embolism and thrombosis of left femoral vein (principal); I82.432 Acute embolism and thrombosis of left popliteal vein

== ENCOUNTER → 2025-05-10 | Outpatient (CLI) | payer MEDICARE ==
[2025-05-10 12:04] LABS: African American GFR (CKD) 82 (>60 ml/min/1.73 sqM); Blood Urea Nitrogen 26 mg/dL (9-20); Non-African American GFR(CKD) 71 (>60 ml/min/1.73 sqM)
--- NOTE | 2025-05-10 13:52 | CT ---
EXAMINATION TYPE: CT ChestAbdPelvis w con DATE OF EXAM: 05/10/2025 COMPARISON: CT chest dated 01/14/[address] abdomen and pelvis dated 11/18/2024 CLINICAL INDICATION: Male, 64 years old with history of C20 RECTAL CA CT DLP: 1571 mGycm Automated exposure control for dose reduction was used. CONTRAST: CT scan of the chest, abdomen and pelvis is performed with Oral Contrast and with IV Contrast, patien t injected with 100 ml mL of Isovue 300. FINDINGS: CT chest: There are 2 stable 6 mm nodules in the right lower lobe. There is no new or suspicious lung mass or n odule. There is no abnormal airspace/consolidative density or abnormal interstitial density. There is no pleural effusion, pleural thickening or pneumothorax. The great vessels and chest are normal there is no mediastinal, hilar or axillary adenopathy. No focal osseous lesions are seen. There is a Mediport catheter tip in the SVC/RA junction. CT abdomen and pelvis: Gallbladder is normal without distention, pericholecystic fluid, wall thickening or gallstone. There is no biliary ductal dilatation. There is no focal mass or organomegaly involving the liver, pancreas, spleen or adrenal glands.. There is no solid renal mass or hydronephrosis. There is persistent marked left hydronephrosis and hy droureter. The right-sided hydronephrosis seen on the prior study has resolved. Caliber of the abdominal aorta is normal and there is no retroperitoneal adenopathy. The bowel loops are normal in caliber and there is no dilatation or obstruction. There has been rever alondra of the right lower quadrant ostomy and surgical sutures are seen in a loop of small bowel in the right lower quadrant. There are anastomotic sutures in the region of the rectum. There is a stable mancini lo of soft tissue or inflammatory density surrounding the rectum likely postsurgical in nature. There is no pelvic mass or adenopathy. There is no free fluid within the pelvis. There is mild prostatic hypertrophy. There are no destructive osseous lesions. IMPRESSION: 1. No evidence of metastatic disease within the chest. There are 2 stable 6 mm right lower lobe pulmo nary nodules. 2. Postsurgical changes within the abdomen but no evidence of recurrent or metastatic disease. 3. Resolution of the previous right hydronephrosis. 4. Stable marked left hydronephrosis and hydroureter. 5. Mild prostatic hypertrophy. [facility], , 05/10/2025 1:50 PM
== END | disposition home or self-care (01) ==
LOC: RADCTMAIN 11:14
PROVIDERS: ATTEND Internal Medicine Hematology & Oncology
DX: C20 Malignant neoplasm of rectum (principal); N40.0 Benign prostatic hyperplasia without lower urinary tract symptoms; N13.30 Unspecified hydronephrosis; Z98.890 Other specified postprocedural states
CPT/HCPCS: 82565; 84520; 71260; 74177; 36415; Q9967